=== PATIENT | female | born 1995 | race Caucasian/White ===

== ENCOUNTER → 2017-10-29 10:47 | Outpatient (CLI) | payer MEDICAID, SELFPAY ==
--- NOTE | 2017-10-29 10:50 | RAD_ITS ---
STUDY: X-RAY - RIGHT WRIST REASON FOR EXAM: Female, 22 years old. 3 day history of pain following fall. TECHNIQUE: 3 view(s) of the wrist were obtained. COMPARISON: None. FINDINGS: Normal visualized distal radius and ulna. Normal radiocarpal articulation. Normal distal radioulnar articulation. Normal carpal bones. Normal carpal articulations. Normal carpometacarpal articulation of the thumb. Normal second through fifth carpometacarpal articulations. Normal visualized metacarpal bones. The soft tissue structures are unremarkable. RAD/Wrist min 3 Views IMPRESSION: Normal x-ray examination of the wrist. Electronically Signed: Casper Trinidad MD at 11:15 EDT Tel [phone], Service support ,
== END ==
PROVIDERS: Visit Provider Physician Assistant Surgical
DX: S66.911A Strain of unspecified muscle, fascia and tendon at wrist and hand level, right hand, initial encounter (principal)
CPT/HCPCS: 73110

== ENCOUNTER 2018-04-27 19:03 | Emergency (ER) | payer MEDICAID, SELFPAY ==
[2018-04-27 19:04] VITALS: BP 140/88; PULSE 129; RESP 18; TEMP 36.3; O2SAT 100; BMI 31.9
--- NOTE | 2018-04-27 20:49 | ED.VISSUMM ---
- ER Visit Summary Date of Service: 04/27/18 Chief Complaint: Cough and bilateral earaches History of Present Illness: The patient is a 22 F past medical history of prior PE with . Patient states that on Saturday started having a cough. And she developed left. Patient had a productive cough of green phlegm. No hemoptysis. No chest pain. Physical Examination: Ill-appearing young female. Vital signs are stable. Afebrile. Pulse ox 100% on room air no signs of hypoxia. No distress. She does not look septic or toxic. HEENT exam right TM erythematous and dull. Bulging no perforation canal unremarkable. Left TM erythematous and dull. Posterior pharynx normal. Neck nontender no lymphadenopathy. Lungs clear to auscultation bilaterally. Dry cough. No rales or rhonchi. No wheezing. Equal symmetrical. Heart regular rhythm rate about 110 no murmur. Abdomen soft nontender. Extremities moves all 4. Calves nontender no edema nor cords. Neurologically she is awake alert with no focal motor deficits. Test Results: None Emergency Department Course and Treatment: Patient has bilateral otitis media and probably a bronchitis. Started on Zithromax Z-DONNA in the ER. Treatment Plan: Z-Donna. 250 mg daily for 4 more days. Tylenol Motrin for pain. Follow-up as needed. Disposition: Discharge Impression: Acute bilateral otitis media Bronchitis This note was generated with [employer] dictation software. It may contain incorrect words, spelling, and punctuation that were not noted in review of the chart prior to signing ED Disposition - Plan for ED Patient: Chief Complaint: Cold Sx Referrals: Care Physician,No Primary [Primary Care Provider] -
--- NOTE | 2018-04-27 20:51 | ED.DEP ---
ED Disposition - Plan for ED Patient: Disposition: Home or Assisted Living Chief Complaint: Cold Sx Instructions: ED Otitis Media Serous Adult Prescriptions: Azithromycin [Zithromax] 250 mg PO DAILY #4 tab Referrals: Dez Chawla MD [STAFF PHYSICIAN] - As Needed Additional Instructions: Zithromax 1 pill a day after lunch starting tomorrow. For 4 more days. Tylenol Motrin for pain and fever. Plenty of fluids and rest. Follow-up if not improving.
[2018-04-27] MEDS: Azithromycin 250 MG Tablet 500 MG PO (20:59)
[2018-04-27 21:01] VITALS: BP 136/87; PULSE 104; RESP 20; O2SAT 97
== END 2018-04-27 21:02 | disposition home or self-care (01) ==
PROVIDERS: Emergency Provider Emergency Medicine
DX: H66.93 Otitis media, unspecified, bilateral (principal); J40 Bronchitis, not specified as acute or chronic; Z86.711 Personal history of pulmonary embolism
CPT/HCPCS: 99283

== ENCOUNTER → 2018-06-11 13:07 | Outpatient (CLI) | payer MEDICAID, SELFPAY ==
[2018-06-09 14:14] VITALS: BMI 31.9
--- NOTE | 2018-06-11 13:15 | US_ITS ---
STUDY: ULTRASOUND OF THE FEMALE PELVIS - COMPLETE REASON FOR EXAM: Female, 22 years old. Pelvic pain. LMP: 06/05/2018. TECHNIQUE: Transabdominal and Transvaginal TECHNICAL QUALITY: Adequate. COMPARISON: None. FINDINGS: The uterus is anteverted and is in a midline position. The uterus measures 8.9 x 3.3 cm. There is a Nabothian cyst of the cervix measuring about 1 cm. The endometrium measures 5 mm in thickness, and is . There is no demonstrated endometrial mass. There is no demonstrated myometrial mass. I.U.D. - The patient does have an I.U.D. The IUD is in the mid aspect of the uterus close to the lower uterine segment. The right ovary is visualized. The right ovary measures 2.4 x 2.2 x 1.8 cm. There is a small cyst/prominent follicle in the right ovary measuring about 1.3 cm. There is no visualized right adnexal mass or complex lesion. There is normal arterial and normal venous vascularity. The left ovary is visualized. The left ovary measures 2.4 x 2.2 x 1.8 cm. There is a prominent follicle in the left ovary measuring about 1.1 cm. There is no visualized left adnexal mass or complex lesion. There is normal arterial and normal venous vascularity. There is no fluid in the cul-de-sac. The pre void volume of the bladder was 158 ml. US/Pelvic (Non ) IMPRESSION: 1. IUD somewhat low in position close to the lower uterine segment. 2. No pelvic mass is seen. 3. Nabothian cysts in the cervix. Electronically Signed: Mayito Nathan MD at 13:51 EST Tel , Service support ,
--- NOTE | 2018-06-11 13:15 | US_ITS ---
STUDY: ULTRASOUND OF THE FEMALE PELVIS - COMPLETE REASON FOR EXAM: Female, 22 years old. Pelvic pain. LMP: 06/05/2018. TECHNIQUE: Transabdominal and Transvaginal TECHNICAL QUALITY: Adequate. COMPARISON: None. FINDINGS: The uterus is anteverted and is in a midline position. The uterus measures 8.9 x 3.3 cm. There is a Nabothian cyst of the cervix measuring about 1 cm. The endometrium measures 5 mm in thickness, and is . There is no demonstrated endometrial mass. There is no demonstrated myometrial mass. I.U.D. - The patient does have an I.U.D. The IUD is in the mid aspect of the uterus close to the lower uterine segment. The right ovary is visualized. The right ovary measures 2.4 x 2.2 x 1.8 cm. There is a small cyst/prominent follicle in the right ovary measuring about 1.3 cm. There is no visualized right adnexal mass or complex lesion. There is normal arterial and normal venous vascularity. The left ovary is visualized. The left ovary measures 2.4 x 2.2 x 1.8 cm. There is a prominent follicle in the left ovary measuring about 1.1 cm. There is no visualized left adnexal mass or complex lesion. There is normal arterial and normal venous vascularity. There is no fluid in the cul-de-sac. The pre void volume of the bladder was 158 ml. US/Transvaginal Non- IMPRESSION: 1. IUD somewhat low in position close to the lower uterine segment. 2. No pelvic mass is seen. 3. Nabothian cysts in the cervix. Electronically Signed: Mayito Nathan MD at 13:51 EST Tel , Service support ,
== END ==
PROVIDERS: Referring Provider Obstetrics & Gynecology; Visit Provider Obstetrics & Gynecology
DX: R10.2 Pelvic and perineal pain (principal)
CPT/HCPCS: 76830; 76856; 93976

== ENCOUNTER → 2018-09-30 12:22 | Outpatient (CLI) | payer MEDICAID, SELFPAY ==
[2018-09-30 12:18] VITALS: BMI 31.9
--- NOTE | 2018-09-30 12:24 | RAD_ITS ---
STUDY: X-RAY - RIGHT ANKLE REASON FOR EXAM: Female, 23 years old. Injury. Pain. TECHNIQUE: 3 view(s) of the ankle. COMPARISON: None. FINDINGS: Normal visualized distal tibia and fibula. Normal medial and lateral malleoli. Normal tibiotalar articulation and ankle mortise. Normal visualized talus and calcaneus. The visualized subtalar, talonavicular, calcaneocuboid and tarsal articulations are normal. There is no demonstrated fracture. The soft tissue structures are unremarkable. RAD/Ankle min 3 Views IMPRESSION: Normal x-ray examination of the ankle. Electronically Signed: Jonny Chirinos MD at 13:36 EDT , Service support ,
== END ==
PROVIDERS: Referring Provider Physician Assistant Medical; Visit Provider Physician Assistant Medical
DX: R52 Pain, unspecified (principal)
CPT/HCPCS: 73610

== ENCOUNTER 2018-12-17 20:17 | Emergency (ER) | payer MEDICAID, SELFPAY ==
[2018-09-30 12:18] VITALS: BMI 31.9
[2018-12-17 20:18] VITALS: BP 135/72; PULSE 124; RESP 18; TEMP 36.1; O2SAT 97; BMI 44.7
--- NOTE | 2018-12-17 22:41 | ED.VIS.HA ---
History of Present Illness Chief Complaint: Headache Informant: Patient Onset: Yesterday Context: Gradual Timing: Continuous Quality: Similar Prior Headaches - But worse, Throbbing Location: Central frontal, radiating to occipital area Current Severity: Moderate Maximum Severity: Moderate Worsened by: Light and sound Relieved by: Nothing Associated Symptoms: Nausea, Blurred Vision, Photophobia, - - No recent injuries.. Negative for: Fever, Vomiting, Sore Throat, Sinus Pressure, Numbness, Tingling, Preceding Aura, Visual Loss Narrative: Patient states she has felt a mild cold lately, with some rhinorrhea, congestion, minor nonproductive cough. Feels cold chills but no definite fevers. No shortness of breath. No vomiting. No focal neurologic symptoms. No neck stiffness. No confusion. Has a history of headaches like these, as far as the location in her head. No thunderclap. No history of cerebral aneurysms in the family. Past Medical History - Allergies and Home Meds Allergies/Adverse Reactions: Allergies metoclopramide [From Reglan] Adverse Reaction (Mild, Verified 09/30/18 12:13) RESTLESS, ITCHING, FLUSHING restlessness, itching, flushing Penicillins Adverse Reaction (Verified 09/30/18 12:13) Vomiting bratwurst Adverse Reaction (Uncoded 09/30/18 12:13) Vomiting Primary Care Physician: Care Physician,No Primary [Primary Care Provider] - Past Medical History: None Lives: With Family Smoking Status: Never smoker Drugs: None Review of Systems General: Reports: Chills. Denies: Fever Eyes: Reports: Blurred Vision - bilaterally. Denies: Diplopia ENT: Reports: Rhinorrhea. Denies: Bilateral ear pain, Sore throat Cardiovascular: Denies: Chest pain, Palpitations Respiratory: Reports: Cough. Denies: Dyspnea, Sputum, Dyspnea on exertion Gastrointestinal: Reports: Nausea. Denies: Abdominal pain, Vomiting Musculoskeletal: Denies: Neck pain, Back pain Skin: Denies: Rash, Wounds Neurological: Reports: Headache. Denies: Weakness, Numbness Physical Exam Vital Signs/Narrative: Vital Signs Temp Pulse Resp BP Pulse Ox 12/17/18 20:18 96.9 F L 124 H 18 135/72 H 97 Inital Vital Signs reviewed: Yes General: Well nourished, Well developed, - - Well-appearing, no acute distress. Mildly photophobic. Head: NC, AT Eyes: Perrl, EOMI ENT: Moist mucous membranes, No rhinorrhea. Negative for: Nasal congestion - No purulent discharge or nasal turbinate edema., Sinus tenderness Neck: Supple, No Lymphadenopathy, Nontender, No Meningismus. Negative for: No JVD Cardiovascular: Regular rate, Regular rhythm, No murmurs. 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 As such, she was treated with IV fluids, Phenergan since she claimed akathisia to Reglan, and Toradol. On reevaluation her headache is almost completely gone she feels much better, I think she is stable for discharge. I do not think there are any indications for antibiotics for sinusitis. She likely has a viral URI, recommend outpatient follow-up as needed. She is comfortable with this plan. ED Disposition - Plan for ED Patient: Disposition: Home or Assisted Living Diagnosis: Migraine headache, Viral upper respiratory infection Instructions: ED, Migraine (Classical) Referrals: Keyla Santos MD [STAFF PHYSICIAN] - 1 Week if not improving
[2018-12-17] MEDS: Ketorolac 30 MG/ML Syringe IV (23:05)
[2018-12-17] MEDS: proMETHazine 25 MG/ML Syringe 12.5 MG IV (23:05)
[2018-12-18 00:19] VITALS: PULSE 72
== END 2018-12-18 00:20 | disposition home or self-care (01) ==
PROVIDERS: Emergency Provider Emergency Medicine
DX: G43.909 Migraine, unspecified, not intractable, without status migrainosus (principal); J06.9 Acute upper respiratory infection, unspecified; Z88.8 Allergy status to other drugs, medicaments and biological substances; Z88.0 Allergy status to penicillin
CPT/HCPCS: 96361; 96374; 96375; 99283; J7030; A4216

== ENCOUNTER → 2022-05-19 | Outpatient (CLI) | payer MEDICAID, SELFPAY ==
[2022-05-19 15:13] LABS: Bacteria 0 SEEN /hpf (None Seen); Mucous, Urine 0 SEEN /hpf (<or=2+); Red Blood Cells-Urine 0 SEEN /hpf (0-5)
[2022-05-19 15:23] LABS: Color, Urine Yellow (Yellow); Glucose, Dipstick Normal (Normal); Ketone-Dipstick Negative (Negative); Leukocyte Esterase-Dipstick 500 /ul (Negative); Nitrite-Dipstick Negative (Negative); Occult Blood-Urine Negative /ul (Negative); Protein-Dipstick Negative (Negative); Urine Bilirubin Dipstick Negative (Negative); Urine Clarity Sl. Cloudy (Clear); Urine Urobilinogen Normal (Normal)
[2022-05-19 15:34] LABS: Squamous Epithelial Cells - UA 5-10 SEEN /hpf (5-10); White Blood Cells 10-25 SEEN /hpf (0-5)
== END | disposition home or self-care (01) ==
PROVIDERS: Visit Provider Physician Assistant Surgical
DX: E78.5 Hyperlipidemia, unspecified (principal); N39.0 Urinary tract infection, site not specified
CPT/HCPCS: 81001; 87086; 87088

== ENCOUNTER 2022-05-20 20:05 | Emergency (ER) | payer MEDICAID, SELFPAY ==
[2022-05-20 20:05] VITALS: BP 154/100; PULSE 113; RESP 18; TEMP 36.1; O2SAT 100; BMI 34.2
--- NOTE | 2022-05-20 20:19 | CT_ITS ---
EXAM: CT ABDOMEN AND PELVIS WITHOUT INTRAVENOUS CONTRAST CLINICAL INDICATION: Pain TECHNIQUE: Helically acquired images were obtained of the abdomen and pelvis without intravenous contrast. CTDIvol = ( 19.39 ) mGy, DLP = ( 1056.13 ) mGycm This CT exam was performed using one or more of the following dose reduction techniques: automated exposure control, adjustment of the mA and/or kV according to patient size, and/or use of iterative reconstruction technique. This report was created using [employer] report generation technology. COMPARISON: None. FINDINGS: LOWER THORAX: Unremarkable. Lung bases are clear. No cardiomegaly. No significant pericardial effusion. ABDOMEN: LIVER: Unremarkable. Homogeneous. GALLBLADDER AND BILE DUCTS: Contracted gallbladder. No calcified gallstones. No gallbladder distention or wall edema. No intra- or extrahepatic biliary ductal dilation. PANCREAS: Unremarkable. No focal cystic mass. SPLEEN: Unremarkable. Normal size without focal cystic or solid mass. ADRENALS: Unremarkable. No nodules. KIDNEYS AND URETERS: Unremarkable. Normal renal size and position. No hydronephrosis. STOMACH AND BOWEL: Unremarkable. No stomach or bowel distention. No focal inflammatory change. PELVIS: APPENDIX: No evidence of acute appendicitis. BLADDER: Unremarkable. REPRODUCTIVE: IUD in place. No adnexal masses. ABDOMEN and PELVIS: INTRAPERITONEAL SPACE: Unremarkable. No ascites or other fluid collection. No free air. BONES/JOINTS: Unremarkable. No suspicious lytic or blastic abnormality. SOFT TISSUES: Unremarkable. No discrete abdominal or pelvic wall hernia. VASCULATURE: Unremarkable. Abdominal aorta is non-dilated. LYMPH NODES: Unremarkable. No enlarged lymph nodes. CT/Abdomen/Pelvis without Cont IMPRESSION: No acute or inflammatory disease or bowel obstruction. Electronically Signed: Yohannes Dubon MD at 21:38 EST ,
--- NOTE | 2022-05-20 20:19 | EX.ED.DYSGE1 ---
HPI History of Present Illness Chief Complaint: Complaint Detail of Chief Complaint: Abdominal pain Informant: patient Narrative Narrative: Patient presents with abdominal pain. Patient states that she is currently being treated for urinary tract infection and is on her second round of antibiotics. Patient symptoms initially started 2-1/2 weeks ago. She complains of urgency and frequency. Patient states that now she has nausea and pain in her back as well. She had a fever about a week ago at 99 and subjectively has felt warm at times. Patient states she gets a UTI about once a year. No history of kidney stones. She has had nausea but no vomiting. She denies blood in her stool or black tarry stool. [facility] Medical History (Updated 05/20/22 @ 21:[address] Kimberlee Smith, ) Acute pharyngitis, unspecified Pulmonary embolism Right ankle sprain URI (upper respiratory infection) UTI (urinary tract infection) Home Medications copper 380 square mm intrauterine device (ParaGard T 380A) 1 device intrauterine ONCE 06/09/18 [History Last Taken Unknown] ibuprofen 200 mg capsule 200 mg PO Q6H 09/11/18 [History Last Taken Unknown] meloxicam 15 mg tablet PO 24 days #24 tabs 09/30/18 [History Last Taken Unknown] cefdinir 300 mg capsule 300 mg PO BID #14 caps 12/09/21 [Rx Last Taken Unknown] phenazopyridine 100 mg tablet (Pyridium) 100 mg PO TID PRN pain 6 doses #7 tabs 05/19/22 [Rx Last Taken Unknown] sulfamethoxazole 800 mg-trimethoprim 160 mg tablet (Bactrim DS) 1 tab PO Q12H 7 days #14 tabs 05/19/22 [Rx Last Taken Unknown] cephalexin 500 mg capsule 500 mg PO Q6 #40 CAPSULES 05/20/22 [Rx Last Taken Unknown] ondansetron 4 mg disintegrating tablet 4 mg PO Q8H PRN PRN Nausea #10 tabs 05/20/22 [Rx Last Taken Unknown] Allergy/AdvReac Type Severity Reaction Status Date / Time metoclopramide [From Reglan] AdvReac Mild RESTLESS, Verified 05/20/22 20:07 ITCHING, FLUSHING Penicillins AdvReac Vomiting Verified 05/20/22 20:07 bratwurst AdvReac Vomiting Uncoded 05/20/22 20:07 Family History Father Diabetes Hypertension Other Arthritis Fibromyalgia Surgical History History of 2 sections Social History Smoking Status: Never smoker alcohol intake: never substance use type: does not use caffeine: Yes what type of physical activity do you participate in: none seatbelt use: always do you feel safe at home: Yes additional social history: [place] Patient is stay at home mom ROS ROS ED Review of Systems ROS Unobtainable: other Constitutional Constitutional ED: Reports fever(s) and lethargy; Denies chills, sweats or weight loss Eyes Eyes: Denies blurry vision, change in vision or diplopia ENT ENT ED: Denies rhinorrhea or sore throat Cardiovascular Cardiovascular: Denies chest pain, orthopnea or racing heartbeat Respiratory/Chest Respiratory/Chest: Denies cough, dyspnea, dyspnea on exertion, orthopnea or sputum Gastrointestinal Gastrointestinal: Reports abdominal pain and nausea; Denies diarrhea or vomiting Genitourinary Genitourinary ED: Reports urinary frequency; Denies dysuria or hematuria Musculoskeletal Musculoskeletal: Denies arthralgias, back pain, myalgias or neck pain Integumentary Denies abscess, Abrasions or rash Neurologic Neurologic: Denies headache(s) or weakness Psychiatric Psychiatric: Denies anxiety, depression or suicidal thoughts Endocrine Endocrinology: Denies polydipsia, polyphagia or polyuria Hematologic/Lymphatic Hematologic/Lymphatic: Denies easy bleeding, easy bruising or lymphadenopathy Allergic/Immunologic Allergic/Immunologic ED: Denies mouth swelling, tongue swelling or urticaria EXAM Physical Exam Const Vital Signs: 05/20/22 20:05 Temperature 97 F L Temperature Source Temporal Pulse Rate 113 H Respiratory Rate 18 Blood Pressure 154/100 H Blood Pressure Mean 118 Pulse Ox 100 Oxygen Delivery Method Room Air Positive well nourished and well developed General Appearance ED: well developed and NAD HEENT Reports TM's clear and moist mucous membranes normocephalic and atraumatic; Negative for trauma or tenderness Tympanic Membrane ED: Yes TM's clear Eyes PERRL and EOMs intact bilaterally General Eye ED: Negative for pale conjunctiva or scleral icterus Neck no lymphadenopathy, supple and no JVD General: Negative for tenderness Chest Wall inspection of chest normal and palpation of chest normal Chest: Negative for tenderness Resp normal respiratory effort and clear to auscultation bilaterally Effort and Inspection: Negative for respiratory distress or pain with movement Auscultation: Negative for rhonchi, wheezes or diminished lung sounds Cardio regular rate, regular rhythm, S1 normal heart sound, S2 normal heart sound and no murmurs Peripheral Pulses: pulses 2+ throughout GI normal to inspection, nondistended, normoactive bowel sounds, soft to palpation, non-distended and no masses GI Narrative: Tenderness to palpation over right lower quadrant and suprapubic region. There is no rebound, rigidity, or. Signs. Back/Spine no thoracic nor lumbar tenderness Back/Spine Narrative: Patient does have CVA tenderness on the right. Extremity normal to inspection General Extremety ED: Negative for edema General Extremity: Negative for edema Neuro oriented x3, CN's II-XII intact bilaterally, no sensory deficits noted and gait normal Sensorium / Orientation: awake, alert, oriented to person, oriented to place and oriented to time Motor Exam: strength 5/5 throughout and strength abnormal Psych mental status grossly normal Skin no rashes or lesions noted and no wounds MDM MDM MDM Narrative Medical decision making narrative: Established on arrival. Patient did not anything for pain. CBC with differential obtained was normal. Chemistries were unremarkable. hCG was negative. Urinalysis still concerning for infection but is positive for nitrites and 500 leukocyte Estrace as well as +1 bacteria and 10-25 WBCs. I did send off a urine culture. CT scan of the abdomen pelvis without contrast was evaluated and interpreted by myself as no acute acute disease process without evidence of kidney stone or inflammatory process such as appendicitis. There is no evidence of bowel obstruction. Radiology was in agreement. Patient then told me that she was seen 2 days ago at urgent care and had a urine culture sent I was able to see in the computer that her urine culture was sent but no results back at this time. I did give patient Rocephin 1 g IV. I will start patient on Keflex and she is currently taking Pyridium. Patient will be given a prescription for Zofran for nausea. Patient to use ibuprofen or Tylenol for discomfort. Patient advised to return if fever, vomiting, worsening pain, or condition should worsen anyway. She will be given a referral to primary care physician for follow-up. Lab Data Attestation: I reviewed the patient's lab results. Labs: Laboratory Results - last 24 hr 05/20/22 05/20/22 05/20/22 20:25 20:25 20:25 WBC 10.2 RBC 4.58 Hgb 13.0 Hct 39.3 MCV 85.8 MCH 28.4 MCHC 33.1 RDW Std Deviation 41.0 RDW Coeff of Fco 13.2 Plt Count 379 MPV 10.2 Immature Gran % (Auto) 0.300 Neut % (Auto) 63.3 Lymph % (Auto) 29.1 [place] % (Auto) 4.5 Eos % (Auto) 2.2 Baso % (Auto) 0.6 Absolute Neuts (auto) 6.5 Absolute Lymphs (auto) 2.98 Nucleated RBC % 0 Sodium 140 Potassium 3.8 Chloride 106 Carbon Dioxide 24.0 Anion Gap 10 BUN 15 Creatinine 0.88 Estim Creat Clear Calc 96.87 Est GFR (MDRD) Af Amer 98 Est GFR (MDRD) Non-Af 81 BUN/Creatinine Ratio 17.0 Glucose 120 H Calcium 8.7 Serum , Qual NEGATIVE Urine Color Urine Clarity Urine pH Ur Specific [place] Urine Protein Urine Glucose (UA) Urine Ketones Urine Occult Blood Urine Nitrite Urine Bilirubin Urine Urobilinogen Ur Leukocyte Esterase Urine RBC Urine WBC Ur Squamous Epith Cells Urine Bacteria Urine Mucus 05/20/22 20:35 WBC RBC Hgb Hct MCV MCH MCHC RDW Std Deviation RDW Coeff of Fco Plt Count MPV Immature Gran % (Auto) Neut % (Auto) Lymph % (Auto) [place] % (Auto) Eos % (Auto) Baso % (Auto) Absolute Neuts (auto) Absolute Lymphs (auto) Nucleated RBC % Sodium Potassium Chloride Carbon Dioxide Anion Gap BUN Creatinine Estim Creat Clear Calc Est GFR (MDRD) Af Amer Est GFR (MDRD) Non-Af BUN/Creatinine Ratio Glucose Calcium Serum , Qual Urine Color [place] Urine Clarity Sl. Cloudy Urine pH 6.0 Ur Specific [place] 1.025 Urine Protein 15 H Urine Glucose (UA) Normal Urine Ketones 5 H Urine Occult Blood Negative Urine Nitrite Positive H Urine Bilirubin 3 H Urine Urobilinogen 4 H Ur Leukocyte Esterase 500 H Urine RBC 0 SEEN Urine WBC 10-25 SEEN Ur Squamous Epith Cells 5-10 SEEN Urine Bacteria 1+ Urine Mucus 0 SEEN Radiography Diagnostic Testing: Clinical Impression(s) from Imaging Studies Abdomen/Pelvis CT 05/20/22 20:19 IMPRESSION: No acute or inflammatory disease or bowel obstruction. Electronically Signed: Yohannes Dubon MD at 21:38 EST , Discharge Plan Triage Chief Complaint: Complaint ED Provider: Kimberlee Smith Dx/Rx/DC Orders Clinical Impression: UTI (urinary tract infection), Abdominal pain Instructions: Abdominal Pain, ED Cystitis Female Adult Prescriptions: New cephalexin [cephalexin] 500 MG capsule 500 mg PO Q6 Qty: 40 0RF ondansetron [ondansetron] 4 MG tablet 4 mg PO Q8H PRN PRN (Reason: Nausea) Qty: 10 0RF No Action ParaGard T 380A 380 square mm intrauterine device 1 device Intrauterine ONCE ibuprofen 200 mg capsule 200 mg PO Q6H meloxicam 15 mg tablet PO 24 Days Qty: 24 cefdinir 300 mg capsule 300 mg PO BID Qty: 14 0RF sulfamethoxazole-trimethoprim [Bactrim DS] 800-160 mg tablet 1 tab PO Q12H 7 Days Qty: 14 0RF phenazopyridine [Pyridium] 100 mg tablet 100 mg PO TID PRN (Reason: pain) Qty: 7 0RF Rx Instructions: administer with a full glass of water after each meal Primary Care Provider: Care Physician,No Primary Referrals: Ambar Floyd DO [Med Staff - Active Staff] - 3-5 Days Care Physician,No Primary [Primary Care Provider] - Disposition Disposition: Home, Self Care
[2022-05-20] MEDS: 0.9% Normal Saline 1,000 ML 125 ML IV (20:30)
[2022-05-20 20:32] LABS: Absolute Lymphocyte Count 2.98 X10^3/uL (0.83-4.51); Absolute Neutrophil Count 6.5 X10^3/uL (2.0-7.7); Basophil# 0.06 X10^3/uL; Basophil% 0.6 % (0-1); Eosinophil# 0.23 X10^3/uL; Eosinophils% 2.2 % (0-5); Hematocrit 39.3 % (37-47); Lymphocyte # 2.98 X10^3/ul (0.83-4.51); Lymphocyte % 29.1 % (19-41); Mean Corp Hgb Conc 33.1 g/dL (32-36); Mean Corpuscular Hgb 28.4 pg (27.0-32.0); Mean Corpuscular Volume 85.8 fL (81-99); Mean Platelet Vol. 10.2 fl (6.2-12.0); Monocyte# 0.46 X10^3/uL; Monocyte% 4.5 % (0-10); NRBC Flagged by Analyzer 0 % (0-5); Neutrophil # 6.48 X10^3/uL (2.7-7.7); Neutrophil % 63.3 % (47-70); Platelet Count 379 K/mm3 (150-450); RBC Distribution Width CV 13.2 % (11.6-14.6); Red Blood Count 4.58 M/mm3 (4.2-5.4); White Blood Count 10.2 K/mm3 (4.4-11.0)
[2022-05-20 20:41] LABS: Mucous, Urine 0 SEEN /hpf (<or=2+); Red Blood Cells-Urine 0 SEEN /hpf (0-5)
[2022-05-20 20:45] LABS: Color, Urine Amber (Yellow); Glucose, Dipstick Normal (Normal); Ketone-Dipstick 5 mg/dl (Negative); Leukocyte Esterase-Dipstick 500 /ul (Negative); Nitrite-Dipstick Positive (Negative); Occult Blood-Urine Negative /ul (Negative); Protein-Dipstick 15 mg/dl (Negative); Specific Gravity, Urine 1.025 (1.002-1.030); Urine Clarity Sl. Cloudy (Clear); Urine Urobilinogen 4 mg/dl (Normal)
[2022-05-20 20:46] LABS: Urine Bilirubin Dipstick 3 mg/dL (Negative)
[2022-05-20 20:46] LABS: Anion Gap 10 (5-15); BUN 15 mg/dL (7-18); Calcium,Total 8.7 mg/dL (8.5-10.1); Chloride 106 mmol/L (98-107); Creatinine, Serum 0.88 mg/dL (0.55-1.02); EST Glomerular Filtration Rate 81 mL/min (>60); Est Glom Filt Rate - Afr Amer 98 mL/min (>60); Estimated Creatinine Clearance 96.87 ml/min; Glucose 120 mg/dL (74-106); Potassium 3.8 mmol/L (3.5-5.1); Sodium Level 140 mmol/L (136-145)
[2022-05-20 20:47] LABS: Internal QC Validated? YES +Cl - CLEAR BKGD; Pregnancy, Serum, hCG Quali. NEGATIVE Negative
[2022-05-20 20:50] LABS: Squamous Epithelial Cells - UA 5-10 SEEN /hpf (5-10)
[2022-05-20 20:51] LABS: Bacteria 1+ /hpf (None Seen); White Blood Cells 10-25 SEEN /hpf (0-5)
[2022-05-20] MEDS: Phenazopyridine 95 MG Tablet 190 MG PO (21:33)
[2022-05-20] MEDS: Ceftriaxone 1 GM/50 ML BAG IV (21:33)
[2022-05-20 21:43] VITALS: PULSE 68; RESP 16; O2SAT 99
== END 2022-05-20 22:10 | disposition home or self-care (01) ==
PROVIDERS: Emergency Provider Emergency Medicine; Visit Provider Emergency Medicine
DX: N39.0 Urinary tract infection, site not specified (principal); R11.0 Nausea; R10.9 Unspecified abdominal pain; R35.0 Frequency of micturition
CPT/HCPCS: 74176; 80048; 81001; 84703; 85025; 87086; 87088; 96361; 96365; 99283; J7030; A4216

== ENCOUNTER → 2024-10-19 | Outpatient (CLI) | payer MEDICAID, SELFPAY ==
[2024-10-19 12:26] LABS: Absolute Lymphocyte Count 2.34 X10^3/uL (0.83-4.51); Absolute Neutrophil Count 6.5 X10^3/uL (2.0-7.7); Basophil# 0.06 X10^3/uL; Basophil% 0.6 % (0-1); Eosinophil# 0.34 X10^3/uL; Eosinophils% 3.5 % (0-5); Hematocrit 40.4 % (37-47); Hemoglobin 12.7 g/dL (12.0-15.0); Lymphocyte # 2.34 X10^3/ul (0.83-4.51); Lymphocyte % 23.9 % (19-41); Mean Corp Hgb Conc 31.4 g/dL (32-36); Mean Corpuscular Hgb 26.3 pg (27.0-32.0); Mean Corpuscular Volume 83.8 fL (81-99); Mean Platelet Vol. 10.7 fl (6.2-12.0); Monocyte# 0.52 X10^3/uL; Monocyte% 5.3 % (0-10); NRBC Flagged by Analyzer 0 % (0-5); Neutrophil # 6.49 X10^3/uL (2.7-7.7); Neutrophil % 66.4 % (47-70); Platelet Count 454 K/mm3 (150-450); RBC Distribution Width CV 13.7 % (11.6-14.6); RBC Distribution Width SD 42.5 fl (35.1-43.9); Red Blood Count 4.82 M/mm3 (4.2-5.4); White Blood Count 9.8 K/mm3 (4.4-11.0)
[2024-10-19 12:59] LABS: Hemoglobin A1c 5.6 % (<=5.6)
[2024-10-20 15:38] LABS: ALB/GLOB Ratio 1.2 RATIO (0.9-2.4); AST(SGOT) 18 U/L (<=31); Alanine Aminotransfer ALT/SGPT 25 U/L (<=34); Alkaline Phosphatase 82 U/L (35-104); Anion Gap 11 (5-15); BUN 11 mg/dL (4-19); BUN/Creat Ratio 14.9 RATIO (10-20); Carbon Dioxide 24.4 mmol/L (21.0-32.0); Chloride 104 mmol/L (98-108); Cholesterol 176 mg/dL (<=200); Creatinine, Serum 0.74 mg/dL (0.70-1.20); EST Glomerular Filtration Rate 112 (>60); Globulin 3.2 g/dL (2.2-4.2); Glucose 92 mg/dL (70-99); High Density Lipoprotein 36 mg/dL; Low Density Lipoprotein Calc. 123 mg/dL; Potassium 4.7 mmol/L (3.3-5.1); Protein, Total 7.2 g/dL (5.9-8.4); Sodium Level 139 mmol/L (133-145); Total Bilirubin 0.31 mg/dL (0.00-1.30); Triglycerides 85 mg/dL; Very Low Density Lipoprotein 17 mg/dL (5-40); Vitamin B12 271 pg/mL (180-914)
== END | disposition home or self-care (01) ==
LOC: BIMLAB 09:24
PROVIDERS: PCP Internal Medicine; Referring Provider Internal Medicine; Visit Provider Internal Medicine
DX: Z00.00 Encounter for general adult medical examination without abnormal findings (principal); F41.9 Anxiety disorder, unspecified; F32.A Depression, unspecified; E66.9 Obesity, unspecified
CPT/HCPCS: 36415; 80053; 80061; 82607; 83036; 84439; 84443; 85025

== ENCOUNTER → 2024-10-23 | Outpatient (CLI) | payer MEDICAID, SELFPAY | END | disposition home or self-care (01) | LOC: LABSPEC 10:31 | PROVIDERS: PCP Internal Medicine; Referring Provider Physician Assistant Surgical; Visit Provider Physician Assistant Surgical | DX: R82.90 Unspecified abnormal findings in urine (principal) | CPT/HCPCS: 87086; 87088 ==

== ENCOUNTER → 2025-02-26 | Outpatient (CLI) | payer MEDICAID, SELFPAY ==
--- OUTSIDE RECORDS SUMMARY | 2025-02-26 16:09 | XMS RPT_ITS | CCD ---
Author Organization [facility] Care Team Providers Care Powder Carrier Name Role Phone Care Physician, No Primary Primary Care Provider Unavailable Care Physician, No Primary Referring Provider Un available MANUEL Goodman Attending Provider Dr. Oziel Whittington Attending Provider Roof ASSEMBLY LINE BRAZER, ASSEMBLY LINE BRAZER-Rain Ballard Attending Provider MANUEL Santiago Attending Provider [phone] REFERRED, SELF Referring Unavailable JEROMY LIZARRAGA Primary Care Unavailable HEIDI LONG Attending Unavailable Care Physician, No Primary Primary Care Provider Unavailable Care Physician, No Primary Referring Provider Un available Nathan Santiago Attending Provider [phone] Lucas SHERWOOD, Dr. Lombardo Attending Provider Lucas SHERWOOD, Dr. Lombardo Primary Care Provider Lucas SHERWOOD, Dr. Lombardo Referring Provider Nathan Santiago Referring Provider Care Physician, No Primary Primary Care Physicia n Unavailable Care Physician, No Primary Referring Provider Un available Lucas SHERWOOD, Dr. Lombardo Attending Physician Dr. Grupo Zavala MD Primary Care Physician Nathan Santiago Attending Physician Care Physician, No Primary Referring Unava ilable Care Physician, No Primary Primary Care Unava ilable Grupo Zavala Attending Unavailable Care Physician, No Primary Primary Care Unava ilable Care Physician, No Primary Referring Unava ilable Nathan Santiago Attending Unavailable Care Physician, No Primary Primary Care Unava ilable Jorge Goodman Attending Unavailable Care Physician, No Primary Referring Unava ilable Care Physician, No Primary Primary Care Unava ilable Care Physician, No Primary Referring Unava ilable Nathan Santiago Attending Unavailable Mckayla ASSEMBLY LINE BRAZER, [place] Attending Unavailable Oleghe, Efewongbe Referring Unavailable Oleghe, Efewongbe Primary Care Unavailable Oleghe, Efewongbe Attending Unavailable Oleghe, Efewongbe Referring Unavailable Oleghe, Efewongbe Primary Care Unavailable Oleghe, Efewongbe Primary Care Unavailable Oleghe, Efewongbe Referring Unavailable Nathan Santiago Attending Unavailable Oleghe, Efewongbe Primary Care Unavailable Oleghe, Efewongbe Attending Unavailable Oleghe, Efewongbe Referring Unavailable Oleghe, Efewongbe Primary Care Unavailable Nathan Santiago Attending Unavailable Nathan Santiago Referring Unavailable Allergies Allergy Classification Reported Allergen(s) Allergy Type Date of Onset Reaction(s) Facility (7 sources) Metoclopramide Drug Allergy 05-20-19 RESTLESS, ITCHING, FLUSHING [facility] Comment on above: restlessness, itchin g, flushing (7 sources) Penicillins Propensity to adverse reactions 05-20-19 Vomiting [facility] (2 sources) bratwurst Propensity to adverse reactions 05-20-19 Vomiting [facility] (1 source) Amoxicillin; Translations: [AMOXICILLIN] Drug Allergy [facility] (6 sources) Food Allergies: Uncoded; Translations: [Food Allergies: Uncoded] Propensity to adverse reactions 10-20-19 [facility] Comment on above: bratwurst (1 source) Metoclopramide Drug Allergy 01-26-20 [facility] (1 source) Penicillins Drug allergy (disorder) 01-26-20 [facility] Medications Current Medications Medication Drug Class(es) Dates Sig (Normalized) Sig (Original) traZODone hydrochloride 50 mg oral tablet (1 source) Serotonin Reuptake Inhibitor Start: 01-25-2025 take 1 tablet by mouth at bedtime as needed Trazodone 50 mg tablet Active 50 mg PO AT BEDTIME as needed for insomnia January 25, 2025 12:00am Complies with drug therapy 24 hr venlafaxine 75 mg extended release oral capsule (3 sources) Serotonin and Norepinephrine Reuptake Inhibitor Start: 01-25-2025 take 1 capsule by mouth once daily Venlafaxine 75 mg capsule,extended release 24hr Active 75 mg PO daily 90 90 1 January 25, 2025 9:13am Complies with drug therapy Start: 11-16-2024 End: 01-25-2025 take 1 capsule by mouth once daily Venlafaxine 37.5 mg capsule,extended release 24hr Discontinued 37.5 mg PO daily 30 0 January 18, 2025 6:03pm January 25, 2025 9:16am Completed/Discontinued Medications Medication Drug Class(es) Dates Sig (Normalized) Sig (Original) acetaminophen 325 mg / oxyCODONE hydrochloride 5 mg oral tablet (14 sources) Opioid Agonist Start: 10-12-2016 End: 10-29-2017 Oxycodone-Acetamino phen 1 TABLET tablet Discontinued 1 {tbl} PO EVERY 4 HOURS NEEDED as needed for Pain 30 October 15, 2016 12:00am October 29, 2017 10:29am Start: 10-12-2016 End: 10-29-2017 take 1 tablet by mouth every four hours as needed Oxycodone-Acetaminophen Discontinued 1 TABLET PO EVERY 4 HOURS NEEDED October 14, 2016 11:00pm October 29, 2017 9:29am azithromycin 250 mg oral tablet (20 sources) Macrolide Antimicrobial Start: 07-21-2022 End: 04-28-2024 Azithromycin 250 mg tablet Discontinued 250 mg PO daily 12 July 21, 2022 12:00am April 28, 2024 10:11am 2 tablets today, then 1 tablet daily on days 2 through 11 Start: 04-17-2021 End: 04-02-2022 take 2-5 tablets by mouth once daily Azithromycin 250 mg tablet Discontinued 0 PO .COMPLEX 6 April 17, 2021 1:00am April 02, 2022 11:55am take 500 mg today (day 1), then 250 mg for 4 days (days 2-5) PO Start: 09-11-2018 End: 09-30-2018 Azithromycin 250 mg tablet Discontinued 250 mg PO daily 6 0 September 11, 2018 12:00am September 30, 2018 12:16pm 2 tablets today, then 1 tablet daily on days 2 through 5 Start: 04-27-2018 End: 06-09-2018 take 1 tablet by mouth once daily Azithromycin 250 MG tablet Discontinued 250 mg PO DAILY 4 April 27, 2018 1:00am June 09, 2018 2:52pm cefdinir 300 mg oral capsule (12 sources) Cephalosporin Antibacterial Start: 12-09-2021 End: 05-08-2024 take 1 capsule by mouth twice daily Cefdinir 300 mg capsule Discontinued 300 mg PO TWICE A DAY 20 April 28, 2024 1:00am May 07, 2024 1:00am May 08, 2024 1:11am cephalexin 500 mg oral capsule (7 sources) Cephalosporin Antibacterial Start: 05-20-2022 End: 04-28-2024 take 1 capsule by mouth every six hours Cephalexin 500 MG capsule Discontinued 500 mg PO EVERY 6 HOURS 40 May 20, 2022 1:00am April 28, 2024 10:11am copper 313 mg drug implant (7 sources) Copper-containing Intrauterine Device Start: 06-09-2018 End: 04-28-2024 Copper (Paragard T 380a) 380 square mm intrauterine device Discontinued 1 NMA INTRA-UTER ONCE June 09, 2018 1:00am April 28, 2024 10:11am Start: 06-09-2018 Copper (Paraga rd T 380a) 380 square mm intrauterine device Active 1 DEVICE INTRA-UTER ONCE June 09, 2018 12:00am dextromethorphan hydrobromide 15 mg / guaiFENesin 400 mg / pseudoephedrine hydrochloride 60 mg oral tablet (5 sources) alpha-Adrenergic Agonist, Uncompetitive W-uugdeo-N-aspartate Receptor Antagonist, Sigma-1 Agonist Start: 04-28-2024 End: 08-14-2024 take 4 tablets by mouth every twenty-four hours as needed Ivvoggcqgsriecc-Rr-Zuebklxhviz (Capmist Dm) 60-15-400 mg tablet Discontinued 1 {tbl} PO EVERY 4-6 HOURS as needed for cold symptoms April 28, 2024 1:00am August 14, 2024 11:09am do not exceed 4 doses per 24 hrs docusate sodium 50 mg / sennosides, half-way 8.6 mg oral tablet (7 sources) Start: 10-15-2016 End: 10-29-2017 Sennosides-Docusate Sodium 1 TABLET tablet Discontinued 1 - 2 {tbl} PO DAILY as needed for Constipation 30 0 October 15, 2016 12:00am October 29, 2017 10:29am Start: 10-15-2016 End: 10-29-2017 take 1 tablet by mouth once daily Sennosides-Docusate Sodium Discontinued 1 - 2 TABLET PO DAILY 30 October 14, 2016 11:00pm October 29, 2017 9:29am 0.4 ml enoxaparin sodium 100 mg/ml prefilled syringe (20 sources) Low Molecular Weight Heparin Start: 10-15-2016 End: 10-29-2017 inject 40 mg by subcutaneous injection once daily Enoxaparin 40 MG/0.4 ML syringe Discontinued 40 mg SQ DAILY 1 October 15, 2016 12:00am October 29, 2017 10:29am Start: 10-12-2016 End: 10-29-2017 inject 100 mg by subcutaneous injection twice daily Enoxaparin 100 MG/ML syringe Discontinued 100 mg SQ TWICE A DAY 60 October 12, 2016 12:00am October 29, 2017 10:29am Start: 10-12-2016 End: 10-29-2017 inject 100 mg by subcutaneous injection twice daily Enoxaparin Discontinued 100 MG SQ TWICE A DAY 60 October 11, 2016 11:00pm October 29, 2017 9:29am Start: 07-19-2016 End: 09-19-2016 inject 100 mg by subcutaneous injection twice daily Enoxaparin (Lovenox) 100 MG/ML syringe Discontinued 100 mg SQ TWICE A DAY 10 0 July 19, 2016 12:00am September 19, 2016 12:14am escitalopram 10 mg oral tablet (5 sources) Serotonin Reuptake Inhibitor Start: 10-19-2024 End: 11-16-2024 take 0.5 tablet by mouth once daily, then take 1 tablet by mouth once daily Escitalopram Oxalate (Lexapro) 10 mg tablet Discontinued 10 mg PO daily 30 3 October 19, 2024 12:00am November 16, 2024 11:43am Take 1/2 tablet x 2 weeks then increase to 1 tablet daily Heparin Injection (7 sources) Start: 10-03-2016 End: 10-15-2016 Heparin Injection Discontinued 10581 U SQ TWICE A DAY October 03, 2016 12:00am October 15, 2016 8:39am hx pe this Start: 10-03-2016 End: 10-15-2016 [place] [address] U SQ TWICE A DAY October 03, 2016 12:00am October 15, 2016 8:39am Start: 10-03-2016 End: 10-15-2016 [place] [address] UNITS SQ TWICE A DAY October 02, 2016 11:00pm October 15, 2016 7:39am ibuprofen 200 mg oral tablet (12 sources) Nonsteroidal Anti-inflammatory Drug Start: 10-19-2024 End: 01-25-2025 Ibuprofen (Advil) 200 mg tablet Discontinued 400 mg PO .1xwk as needed October 19, 2024 12:00am January 25, 2025 8:57am Start: 09-11-2018 End: 04-28-2024 take 1 capsule by mouth every six hours Ibuprofen 200 mg capsule Discontinued 200 mg PO EVERY 6 HOURS September 11, 2018 12:00am April 28, 2024 10:11am ipratropium bromide 0.021 mg/actuat metered dose nasal spray (1 source) Anticholinergic Start: 08-14-2024 End: 10-19-2024 Ipratropium Tererro 21 mcg (0.03 %) spray,non-aerosol Discontinued 2 NMA INTRANASAL 2 to 3 times per day as needed for postnasal drainage August 14, 2024 12:00am October 19, 2024 8:39am administer into each nostril Ipratropium Tererro 21 mcg (0.03 %) spray,non-aerosol (4 sources) Start: 08-14-2024 End: 10-19-2024 Ipratropium Tererro 21 mcg (0.03 %) spray,non-aerosol Discontinued 2 NMA INTRANASAL 2 to 3 times per day as needed for postnasal drainage August 14, 2024 12:00am October 19, 2024 8:39am administer into each nostril Start: 08-14-2024 End: 10-19-2024 Ipratropium Tererro 21 mcg ( 0.03 %) spray,non-aerosol Discontinued 2 NMA INTRANASAL 2 to 3 times per day as needed for postnasal drainage August 14, 2024 12:00am October 19, 2024 8:39am administer into each nostril levoFLOXacin 500 mg oral tablet (5 sources) Quinolone Antimicrobial Start: 05-18-2024 End: 04-11-2025 take 1 tablet by mouth every twenty-four hours Levofloxacin 500 mg tablet Discontinued 500 mg PO Q24H 10 0 May 18, 2024 1:00am August 14, 2024 11:09am meloxicam 15 mg oral tablet (7 sources) Nonsteroidal Anti-inflammatory Drug Start: 09-30-2018 End: 04-28-2024 Meloxicam 15 mg tablet Discontinued PO 24 24 September 30, 2018 12:00am April 28, 2024 10:11am Start: 09-30-2018 Meloxicam Acti ve PO 24 September 29, 2018 11:00pm naproxen 250 mg oral tablet (7 sources) Nonsteroidal Anti-inflammatory Drug Start: 10-15-2016 End: 10-29-2017 take 1 tablet by mouth every six hours as needed for pain Naproxen 250 MG tablet Discontinued 250 mg PO EVERY 6 HOURS NEEDED as needed for Pain October 15, 2016 12:00am October 29, 2017 10:29am nitrofurantoin, macrocrystals 25 mg / nitrofurantoin, monohydrate 75 mg oral capsule (17 sources) Nitrofuran Antibacterial Start: 10-22-2024 End: 10-29-2024 take 1 capsule by mouth every twelve hours at mealtime Nitrofurantoin Monohyd/M-Cryst 100 mg capsule Discontinued 1 NMA PO Q12H 14 7 0 October 22, 2024 12:00am October 28, 2024 12:00am October 29, 2024 12:07am administer with a meal/food; swallow whole; do not open, crush, dissolve , or chew Start: 05-12-2022 End: 05-19-2022 take 1 capsule by mouth every twelve hours at mealtime Nitrofurantoin Monohyd/M-Cryst (Macrobid) 100 mg capsule Discontinued 100 mg PO Q12H 14 7 0 May 12, 2022 1:04pm May 18, 2022 1:00am May 19, 2022 1:13am must administer with a meal/food Start: 12-01-2020 End: 12-08-2020 take 1 capsule by mouth every twelve hours at mealtime Nitrofurantoin Monohyd/M-Cryst (Macrobid) 100 mg capsule Discontinued 100 mg PO Q12H 14 7 0 December 01, 2020 12:00am December 07, 2020 12:00am December 08, 2020 12:01am must administer with a meal/food ondansetron 4 mg disintegrating oral tablet (7 sources) Serotonin-3 Receptor Antagonist Start: 05-20-2022 End: 04-28-2024 take 1 tablet by mouth every eight hours as needed for nausea Ondansetron 4 MG tablet Discontinued 4 mg PO EVERY 8 HOURS NEEDED as needed for Nausea 10 0 May 20, 2022 1:00am April 28, 2024 10:11am phenazopyridine hydrochloride 200 mg oral tablet (10 sources) Start: 10-22-2024 End: 01-25-2025 take 1 tablet by mouth three times daily as needed for pain Phenazopyridine (Pyridium) 200 mg tablet Discontinued 200 mg PO THREE TIMES A DAY as needed for pain 7 0 October 22, 2024 12:00am January 25, 2025 8:58am Start: 05-19-2022 End: 04-28-2024 take 1 tablet by mouth three times daily at mealtime for pain Phenazopyridine (Pyridium) 100 mg tablet Discontinued 100 mg PO THREE TIMES A DAY as needed for pain 7 0 May 19, 2022 1:00am April 28, 2024 10:11am administer with a full glass of water after each meal Vit,Brandon 78-Iron-Fol ic 1 TABLET tablet (2 sources) Start: 10-15-2016 End: 10-29-2017 Vit,Brandon 78-Iron-Fol ic 1 TABLET tablet Discontinued 1 {tbl} PO DAILY@1200 0 October 15, 2016 12:00am October 29, 2017 10:29am Start: 11-30-2014 End: 10-29-2017 Vit,Brandon 78-Iron-Fol ic 1 TABLET tablet Discontinued 1 {tbl} PO DAILY November 30, 2014 12:00am October 29, 2017 10:29am Vit,Afjz29-Teev-Ahjhp (4 sources) Start: 10-15-2016 End: 10-29-2017 take 1 tablet by mouth once daily Vit,Pbdv69-Sdwj-Vskhx Discontinued 1 TABLET PO DAILY@1200 October 14, 2016 11:00pm October 29, 2017 9:29am Start: 11-30-2014 End: 10-29-2017 take 1 tablet by mouth once daily Vit,Otwf58-Ovlq-Qjxsd Discontinued 1 TABLET PO DAILY November 29, 2014 11:00pm October 29, 2017 9:29am Vit,Yrro73-Czcu-Aonwh 1 TABLET tablet (8 sources) Start: 10-15-2016 End: 10-29-2017 take 1 tablet by mouth once daily Vit,Bxfc58-Fnsy-Xhjva 1 TABLET tablet Discontinued 1 {tbl} PO DAILY@1200 0 October 15, 2016 12:00am October 29, 2017 10:29am Start: 10-15-2016 End: 10-29-2017 take 1 tablet by mouth once daily Vit,Vqfu81-Tdpr-Qqsxm 1 TABLET tablet Discontinued 1 {tbl} PO DAILY@1200 October 15, 2016 12:00am October 29, 2017 10:29am Start: 11-30-2014 End: 10-29-2017 take 1 tablet by mouth once daily Vit,Faor74-Nujn-Rzwmn 1 TABLET tablet Discontinued 1 {tbl} PO DAILY November 30, 2014 12:00am October 29, 2017 10:29am Start: 11-30-2014 End: 10-29-2017 take 1 tablet by mouth once daily Vit,Pomb80-Umhi-Tbtew 1 TABLET tablet Discontinued 1 {tbl} PO DAILY November 30, 2014 12:00am October 29, 2017 10:29am simethicone 80 mg chewable tablet (7 sources) Start: 10-15-2016 End: 10-29-2017 take 1 tablet by mouth at bedtime as needed for pain Simethicone 80 MG tablet Discontinued 80 mg PO AFTER MEALS AND AT BEDTIME as needed for Indigestion/stomach pain 30 0 October 15, 2016 12:00am October 29, 2017 10:30am sulfamethoxazole 800 mg / trimethoprim 160 mg oral tablet (12 sources) Dihydrofolate Reductase Inhibitor Antibacterial, Sulfonamide Antimicrobial Start: 08-14-2024 End: 08-21-2024 Sulfamethoxazole-Trimet hoprim (Bactrim Ds) 800-160 mg tablet Discontinued 1 {tbl} PO Q12H 14 7 0 August 14, 2024 12:00am August 20, 2024 12:00am August 21, 2024 12:07am Start: 05-19-2022 End: 05-26-2022 Sulfamethoxazole-Trimethopri m (Bactrim Ds) 800-160 mg tablet Discontinued 1 {tbl} PO Q12H 14 7 0 May 19, 2022 1:00am May 25, 2022 1:00am May 26, 2022 1:10am Problems Active Problems Problem Classification Problem Date Documented Da te Episodic/Chronic Abdominal pain (7 sources) Abdominal pain; Translations: [Unspecified abdominal pain] 05-28-2022 Episodic Anxiety disorders (11 sources) Mixed anxiety and depressive disorder; Translations: [Anxiety disorder, unspecified] Onset: 10-19-2024 10-19-2024 Chronic Chronic obstructive pulmonary disease and bronchiectasis (8 sources) Bronchitis; Translations: [Bronchitis, not specified as acute or chronic] 12-17-2018 Episodic Headache; including migraine (7 sources) Migraine; Translations: [Migraine, unspecified, not intractable, without status migrainosus] 12-19-2018 Chronic Immunizations and screening for infectious disease (8 sources) Patient encounter status; Translations: [Encounter for screening for COVID-19] 04-17-2021 Episodic Mood disorders (1 source) Mood disorders; Translations: [Depression, unspecified] Onset: 10-19-2024 Nausea and vomiting (7 sources) Nausea and vomiting; Translations: [Nausea with vomiting, unspecified] 05-09-2016 Episodic Other nutritional; endocrine; and metabolic disorders (9 sources) Obesity; Translations: [Obesity, unspecified] 10-19-2024 Chronic Other nutritional; endocrine; and metabolic disorders (1 source) Obesity, unspecified; Translations: [Obesity, unspecified] Onset: 10-19-2024 Chronic Otitis media and related conditions (14 sources) Acute bilateral otitis media ; Translations: [Otitis media, unspecified, bilateral] 12-09-2021 Episodic Residual codes; unclassified (2 sources) Insomnia; Translations: [Insomnia, unspecified] 01-25-2025 Episodic Sprains and strains (18 sources) Sprain of ankle; Translations: [Sprain of unspecified ligament of right ankle, initial encounter] Episodic Unclassified (5 sources) Z00.00 - Encounter for general adult medical examination without abnormal findings Unclassified (1 source) Encounter for preventive care Unclassified (1 source) Patient encounter status Urinary tract infections (20 sources) Urinary tract infectious disease; Translations: [Urinary tract infection, site not specified] Episodic Past or Other Problems Problem Classification Problem Date Documented Da te Episodic/Chronic Genitourinary symptoms and ill-defined conditions (2 sources) Unspecified abnormal findings in urine; Translations: [Dysuria] Onset: 10-22-2024 Episodic Other upper respiratory infections (20 sources) Upper respiratory infection; Translations: [Acute upper respiratory infection, unspecified] Onset: 05-18-2024 Episodic Results Test Name Value Interpretation Reference Range Facility Internal Medicine Office Vis sarah 01-25-2025 Internal Medicine Office Visit [facility] [address] [place] [address] [place] [address] OFFICE VISIT Date of Service: 01/25/25 MR#: [id number] Acct: [id number] Name: KRISTEN CHRISTY Rep #: [id number] : 1995 Provider: Dr. Grupo guaman MD Age/Sex: 29/F Location: [facility] Status: Signed Intake Vital Signs 10/19/24 08:38 01/25/25 08:59 Height 5 ft 8 in 5 ft 8 in Weight: 252 lb BMI 38.2 BP 110/80 Blood Pressure Location Lt brachial Position Sitting Respiration 16 Pulse 94 Pulse Source Monitor Temp 98.0 F Temp Source Temporal Pulse Oximetry (%) 99 Oxygen Delivery Method room air Intake Visit Reasons: 3 month Chief Complaint: 3 MONTH FU Is patient in pain?: No Allergies metoclopramide (From Reglan) Adverse Reaction (Mild, Verified 01/25/25 08:57) RESTLESS, ITCHING, FLUSHING Food Allergies: Uncoded Adverse Reaction (Verified 01/25/25 08:57) Vomiting Penicillins Adverse Reaction (Verified 01/25/25 08:57) Vomiting Medications ???Medication ???Instructions ???Recorded ???Confirmed ???Type trazodone 50 mg tablet 50 mg PO QHS PRN insomnia #30 tabs 01/25/25 01/25/25 Rx venlafaxine 75 mg capsule,extended 75 mg PO QDAY 3 months #90 caps 01/25/25 01/25/25 Rx release 24 hr PFSH Medical History (Updated 01/25/25 @ 09:[address] Grupo Zavala MD) Insomnia Anxiety and depression Obesity Preventative health care Right ankle sprain Acute pharyngitis, unspecified URI (upper respiratory infection) UTI (urinary tract infection) Pulmonary embolism Surgical History History of 2 sections Family History Father Diabetes Hypertension Depression CVA (cerebral vascular accident) Brother Bipolar 1 disorder Suicide attempt Mother Depression Anxiety Suicide attempt Other Arthritis Fibromyalgia Social History household members: family current occupational status: unemployed Smoking Status: Never smoker alcohol intake: never substance use type: does not use caffeine: Yes (AM) Type: coffee what type of physical activity do you participate in: none seatbelt use: always do you feel safe at home: Yes additional social history: German jean-baptiste Patient is stay at home mom HPI HPI Chief Complaint: 3 MONTH FU Details: KRISTEN CHRISTY, is a 29-year-old female presenting with medication management issues and sleep disturbances. History of anxiety and depression, initially started on Lexapro, however switched to venlafaxine which she has tolerated better but unsure of its effectiveness at this time due to a particularly stressful month. She is open to dose adjustment. Her sleep pattern is notably disrupted. The patient reports difficulty maintaining sleep, although a sleep aid in the form of an tuwz-fvc-wbtpsmx drink helps her fall asleep. She sleeps at least six hours, although not consecutively, and does not feel rested upon waking. The patient uses caffeinated drinks frequently to combat morning grogginess and describes difficulty initiating morning activities, particularly needing to manage responsibilities early in the day with limited rest. Other chronic medical conditions are stable. Attestation: Documentation on this patient encounter was supported using ambient scribe technology/ voice AI technology. The patient consented to recording for the purpose of documenting the encounter. Provider reviewed content of the generated note prior to signature. ROS Const Constitutional: No body ache, chills, excessive sweating, fatigue, fever(s), frequent falls, headache(s), snoring, weakness, sleep problems or change in appetite Eyes Eyes: No blurry vision, change in vision, discharge, vision loss or Light sensitivity ENT ENT: No abnormal hearing, ear or mastoid pain, tinnitus, dizziness/vertigo, nasal congestion, nasal discharge, headache(s), neck pain or sore throat Resp Respiratory: No cough, excessive phlegm production, hemoptysis, shortness of breath, snoring or wheezing Cardio Cardiology: No chest pain at rest, chest pain with exertion, excessive sweating, shortness of breath, dyspnea on exertion, lightheadedness, orthopnea or palpitations Gastro GI: No abdominal pain, change in bowel habits, constipation, cramping, diarrhea or nausea/dyspepsia Genitourinary-Female : No burning urination, painful urination, urinary incontinence or urinary frequency Musc Musculoskeletal: No abnormal gait, joint pain, back pain, limited range of motion, muscle weakness, neck pain or numbness Skin Skin: No dry skin, redness, lesions, itchy eyes, rash or wounds Neuro Neurology: No abnormal gait, abnormal hearing, abnormal speech, behavioral (more content not included)... Normal [facility] Urine Cultureon 10-25-2024 URC Mixed Gram Positive Organisms Oscar Count 25,000-50,000 MIXC Mixed contaminants. Submit a new specimen if indicated. Normal [facility] Comment on above: Performed By: #### M [id number] #### [facility] [address] [place], [address] Urine cultureOrdered By: Abbe Ferrer on 10-23-2024 Bacteria identified Cx Nom (U) Positive Abnormal [facility] - Chemistry and C hemistry - challengeOrdered By: Nathan Ferrer on 10-22-2024 HCG ( test) Ql (U) Negative [facility] Bilirubin Ql (U) Negative [facility] Glucose Ql (U) Negative [facility] Ketones Ql (U) Negative [facility] pH (U) 6.0 [pH] [facility] Specific gravity (U) [Rel density] 1.020 [facility] Urobilinogen (U) [Mass/Vol] Negative [facility] - Hematology and Cell countsOrdered By: Nathan Ferrer on 10-22-2024 Hemoglobin Ql (U) Trace [facility] - Specimen inform ationOrdered By: Nathan Ferrer on 10-22-2024 Clarity (U) Clear [facility] Color (U) Yellow [facility] - UrinalysisOrder ed By: Nathan Ferrer on 10-22-2024 Nitrite Ql (U) Negative [facility] Protein Ql (U) Trace [facility] No Panel InformationOrdered By: Nathan Ferrer on 10-22-2024 Urine Leukocytes Positive [facility] Urine Non-Hemolyzed Blood Negative [facility]gent [facility] Visit Reporton 0 10-22-2024 Urgent Care Visit Report [facility] [address], [address] [place] [address] OFFICE VISIT Date of Service: 10/22/24 MR#: [id number] Acct: [id number] Name: KRISTEN CHRISTY Rep #: [id number] : 1995 Provider: MANUEL Griffith Age/Sex: 29/F Location: [facility] Status: Signed Intake Vital Signs 10/19/24 08:38 10/22/24 16:51 Height 5 ft 8 in Weight: 256 lb BMI 38.9 BP 124/66 H 114/84 H Blood Pressure Location Lt brachial Lt brachial Position Sitting Sitting Respiration 18 16 Pulse 107 H 107 H Pulse Source Monitor NIBP Temp 99.0 F 98.7 F Temp Source Temporal Oral Pulse Oximetry (%) 99 96 Oxygen Delivery Method room air room air Intake Visit Reasons: CONCERN FOR UTI Chief Complaint: dysuria, back pain, frequency [place] Required: No Is patient in pain?: Yes Allergies metoclopramide (From Reglan) Adverse Reaction (Mild, Verified 10/22/24 16:51) RESTLESS, ITCHING, FLUSHING Food Allergies: Uncoded Adverse Reaction (Verified 10/22/24 16:51) Vomiting Penicillins Adverse Reaction (Verified 10/22/24 16:51) Vomiting Is last menstrual period known: No Post menopausal: No Patient : No Have you fallen in the past year?: No Nurse's Note: dysuria, frequency, flank pain x 2 days. denies fever, blood in urine. concern for UTI [facility] Medical History (Updated 10/22/24 @ 17:01 by MANUEL Ford) Anxiety and depression Obesity Preventative health care Right ankle sprain Acute pharyngitis, unspecified URI (upper respiratory infection) UTI (urinary tract infection) Pulmonary embolism Surgical History History of 2 sections Family History (Updated 10/19/24 @ 08:43 by Jayashree Fam LPN) Father Diabetes Hypertension Depression CVA (cerebral vascular accident) Brother Bipolar 1 disorder Suicide attempt Mother Depression Anxiety Suicide attempt Other Arthritis Fibromyalgia Social History (Updated 10/19/24 @ 08:44 by Jayashree Fam LPN) household members: family current occupational status: unemployed Smoking Status: Never smoker alcohol intake: never substance use type: does not use caffeine: Yes (AM) Type: coffee what type of physical activity do you participate in: none seatbelt use: always do you feel safe at home: Yes additional social history: Lasrjw-Ywcehav-Mltpi estiven Patient is stay at home mom HPI HPI Chief Complaint: dysuria, back pain, frequency Details: KRISTEN CHRISTY, is a 29 F who presents to the office today for complaint of dysuria, low back pain and increasing urgency/frequency for the past 2 days. Patient denies fever, chills or sweats. No nausea, vomiting or diarrhea. No loss of bowel or bladder control. No other associated symptoms or alleviating/aggravat ing factors. ROS Const Constitutional: No other (As above) Exam Const General: cooperative and healthy appearing Resp Effort Inspection: normal respiratory effort Auscultation: Bilateral: Clear to Auscultation Cardio Rate: regular rate Rhythm: regular rhythm GI Auscultation: normal bowel sounds General: No CVA tenderness Psych Appearance: grossly normal Mental Status: mental status grossly normal Results POC Urine Office , Urine Negative Last Edit by Mirella Umana on 10/22/24 16:57 POC Urinalysis Dip (Clinic) Office Urine Color Yellow Last Edit by Mirella Umana on 10/22/24 16:58 Office Urine Clarity Clear Last Edit by Mirella Umana on 10/22/24 16:58 Office Urine Glucose Negative Last Edit by Mirella Umana on 10/22/24 16:58 Office Urine Ketones Negative Last Edit by Mirella Umana on 10/22/24 16:58 Off Ur Spec Hyndman 1.020 Last Edit by Mirella Umana on 10/22/24 16:58 Office Urine pH 6.0 Last Edit by Mirella Umana on 10/22/24 16:58 Office Urine Bilirubin Negative Last Edit by Mirella Umana on 10/22/24 16:58 Office Urine Urobilinogen Negative Last Edit by Mirella Umana on 10/22/24 16:58 Office Urine Blood Trace Last Edit by Mirella Umana on 10/22/24 16:58 Office Urine Blood Hemolyzed Negative Last Edit by Mirella Umana on 10/22/24 16:58 Office Urine Protein Trace Last Edit by Mirella Umana on 10/22/24 16:58 Office Urine Nitrate Negative Last Edit by Mirella Umana on 10/22/24 16:58 Off Ur Leukocytes Positive Last Edit by Mirella Umana on 10/22/24 16:58 Coding Level of Care Code Off vis,est,level 3 Diagnoses Cystitis N30.90 Assessment and Plan Assessment and Plan (1) Cystitis: Status: Acute Orders: Orders POC Urinalysis Dip (Clinic) Today R30.0 - Dysuria POC Urine Today R30.0 - Dysuria Culture, Urine Today R82.90 - Unspecified abnormal findings in urine Medications: New nitrofurantoin (more content not included)... Normal [facility] Comprehensive Metabolic Prof ilon 10-20-2024 Albumin [Mass/Vol] 4.0 g/dL Normal 3.5-5.0 [facility] Comment on above: Performed By: #### L 501.9520, L100.0100, L500.4050, L503.0106, L506.0400, L500.4100, L501.9985 #### [facility] [address] [place], [place], [id number] Albumin/Globulin [Mass ratio] 1.2 {ratio} Normal 0.9-2.4 [facility] Comment on above: Performed By: #### L 501.9520, L100.0100, L500.4050, L503.0106, L506.0400, L500.4100, L501.9985 #### [facility] [address] [place], [address] ALK PHOS 82 U/L Normal 35-104 [facility] Comment on above: Performed By: #### L 501.9520, L100.0100, L500.4050, L503.0106, L506.0400, L500.4100, L501.9985 #### [facility] [address] [place], [address] ALT [Catalytic activity/Vol] 25 U/L Normal <=34 [facility] Comment on above: Performed By: #### L 501.9520, L100.0100, L500.4050, L503.0106, L506.0400, L500.4100, L501.9985 #### [facility] [address] [place], [address] AST [Catalytic activity/Vol] 18 U/L Normal <=31 [facility] Comment on above: Performed By: #### L 501.9520, L100.0100, L500.4050, L503.0106, L506.0400, L500.4100, L501.9985 #### [facility] [address] [place], [address] Bilirubin [Mass/Vol] 0.31 mg/dL Normal 0.00-1.30 [facility] Comment on above: Performed By: #### L 501.9520, L100.0100, L500.4050, L503.0106, L506.0400, L500.4100, L501.9985 #### [facility] [address] [place], [address] BUN/CRE 14.9 RATIO Normal 10-20 [facility] Comment on above: Performed By: #### L 501.9520, L100.0100, L500.4050, L503.0106, L506.0400, L500.4100, L501.9985 #### [facility] [address] [place], [address] Calcium [Mass/Vol] 9.0 mg/dL Normal 7.6-11.0 [facility] Comment on above: Performed By: #### L 501.9520, L100.0100, L500.4050, L503.0106, L506.0400, L500.4100, L501.9985 #### [facility] [address] [place], [address] Chloride [Moles/Vol] 104 mmol/L Normal 98-108 [facility] Comment on above: Performed By: #### L 501.9520, L100.0100, L500.4050, L503.0106, L506.0400, L500.4100, L501.9985 #### [facility] [address] [place], [address] CO2 [Moles/Vol] 24.4 mmol/L Normal 21.0-32.0 [facility] Comment on above: Performed By: #### L 501.9520, L100.0100, L500.4050, L503.0106, L506.0400, L500.4100, L501.9985 #### [facility] [address] [place], [address] Creatinine [Mass/Vol] 0.74 mg/dL Normal 0.70-1.20 [facility] Comment on above: Performed By: #### L 501.9520, L100.0100, L500.4050, L503.0106, L506.0400, L500.4100, L501.9985 #### [facility] [address] [place], [address] GAP 11 Normal 5-15 [facility] Comment on above: Performed By: #### L 501.9520, L100.0100, L500.4050, L503.0106, L506.0400, L500.4100, L501.9985 #### [facility] [address] [place], [address] GFR/1.73 sq M.predicted among non-blacks MDRD (S/P/Bld) [Vol rate/Area] 112 mL/min/{1.73_m2} Normal >60 [facility] Comment on above: Result Comment: mL/m in/1.73m2 CKD-EPI Creatinine Equation (2020) Performed By: #### L 501.9520, L100.0100, L500.4050, L503.0106, L506.0400, L500.4100, L501.9985 #### [facility] [address] [place], [address] Globulin (S) [Mass/Vol] 3.2 g/dL Normal 2.2-4.2 [facility] Comment on above: Performed By: #### L 501.9520, L100.0100, L500.4050, L503.0106, L506.0400, L500.4100, L501.9985 #### [facility] [address] [place], [address] Glucose [Mass/Vol] 92 mg/dL Normal 70-99 [facility] Comment on above: Performed By: #### L 501.9520, L100.0100, L500.4050, L503.0106, L506.0400, L500.4100, L501.9985 #### [facility] [address] [place], [address] Potassium [Moles/Vol] 4.7 mmol/L Normal 3.3-5.1 [facility] Comment on above: Performed By: #### L 501.9520, L100.0100, L500.4050, L503.0106, L506.0400, L500.4100, L501.9985 #### [facility] [address] [place], [address] Sodium [Moles/Vol] 139 mmol/L Normal 133-145 [facility] Comment on above: Performed By: #### L 501.9520, L100.0100, L500.4050, L503.0106, L506.0400, L500.4100, L501.9985 #### [facility] [address] [place], [address] T PROT 7.2 g/dL Normal 5.9-8.4 [facility] Comment on above: Performed By: #### L 501.9520, L100.0100, L500.4050, L503.0106, L506.0400, L500.4100, L501.9985 #### [facility] [address] [place], [address] Urea nitrogen [Mass/Vol] 11 mg/dL Normal 4-19 [facility] Comment on above: Performed By: #### L 501.9520, L100.0100, L500.4050, L503.0106, L506.0400, L500.4100, L501.9985 #### [facility] [address] [place], [place], [id number] (038) Lipid Profileon 10-20-2024 CHOL:HDL 4.90 Normal [facility] Comment on above: Performed By: #### L 501.9520, L100.0100, L500.4050, L503.0106, L506.0400, L500.4100, L501.9985 #### [facility] [address] [place], [address] Cholesterol [Mass/Vol] 176 mg/dL Normal <=200 [facility] Comment on above: Result Comment: Chol esterol level, Desirable <200 mg/dL Borderline high cholesterol 200-239 mg/dL High cholesterol >=240 mg/dL Recommendations of the NCEP Adult Treatment Panel for the following risk-cutoff thresholds for the [place] population. Performed By: #### L 501.9520, L100.0100, L500.4050, L503.0106, L506.0400, L500.4100, L501.9985 #### [facility] [address] [place], [address] Cholesterol in HDL [Mass/Vol] 36 mg/dL Low [facility] Comment on above: Result Comment: Nereida onal Cholesterol Education Program (NCEP) guidelines: <40 mg/dL: Low HDL-cholesterol (major risk factor for CHD) >= 60 mg/dL: High HDL-cholesterol (negative risk factor for CHD) HDL-cholesterol is affected by a number of factors, e.g. smoking, exercise, hormones, sex and age. Performed By: #### L 501.9520, L100.0100, L500.4050, L503.0106, L506.0400, L500.4100, L501.9985 #### [facility] [address] [place], [address] Cholesterol in LDL [Mass/Vol] 123 mg/dL Normal [facility] Comment on above: Result Comment: Bord tymuyn=261-296 mg/dL Higher Zkhy=274 mg/dL or greater Performed By: #### L 501.9520, L100.0100, L500.4050, L503.0106, L506.0400, L500.4100, L501.9985 #### [facility] [address] [place], [address] Cholesterol in VLDL [Mass/Vol] 17 mg/dL Normal 5-40 [facility] Comment on above: Performed By: #### L 501.9520, L100.0100, L500.4050, L503.0106, L506.0400, L500.4100, L501.9985 #### [facility] [address] [place], [address] Triglyceride [Mass/Vol] 85 mg/dL Normal [facility] Comment on above: Result Comment: The drugs N-Acetylcysteine and Metamizole may falsely depress this assay. Normal range: <150 mg/dL Borderline High: 150-199 mg/dL High: 200-499 mg/dL Very High: >500 mg/dL Performed By: #### L 501.9520, L100.0100, L500.4050, L503.0106, L506.0400, L500.4100, L501.9985 #### [facility] [address] [place], [place], [id number] T4 Free Directon 10-20-2024 T4 FREE DIRECT 1.00 ng/dL Normal 0.76-1.46 [facility] Comment on above: Performed By: #### L 501.9520, L100.0100, L500.4050, L503.0106, L506.0400, L500.4100, L501.9985 ####[facility] [id number] [facility] [place], [place], [id number] Thyroid Stim Hormone (TSH)on 10-20-2024 TSH 3.280 uIU/mL Normal 0.300-4.200 [facility] Comment on above: Performed By: #### L 501.9520, L100.0100, L500.4050, L503.0106, L506.0400, L500.4100, L501.9985 #### [facility] [address] [place], [place], [id number] Vitamin B12on 10-20-2024 Cobalamin (Vitamin B12) [Mass/Vol] 271 pg/mL Normal 180-914 [facility] Comment on above: Performed By: #### L 501.9520, L100.0100, L500.4050, L503.0106, L506.0400, L500.4100, L501.9985 #### [facility] [address] [place], [place], [id number] Absolute lymphocyte countOrd ered By: Grupo Zavala on 10-19-2024 Lymphocytes Auto (Unsp spec) [#/Vol] 2.34 10*3/uL 0.83-4.51 [facility] Absolute neutrophil countOrd ered By: Grupo Zavala on 10-19-2024 Neutrophils (Bld) [#/Vol] 6.5 10*3/uL 2.0-7.7 [facility] Anion gap in Serum or Plasma Ordered By: Grupo Zavala on 10-19-2024 Anion gap [Moles/Vol] 11 mmol/L 5-15 [facility] Automated lymphocyte count a s percentage of total leukocytesOrdered By: nickie Zavala on 10-19-2024 Lymphocytes/100 WBC Auto (Unsp spec) 23.9 % 19- [facility] BUN/creatinine ratioOrdered By: [facility] Bell[facility]ellie on 10-19-2024 Urea nitrogen/Creatinine [Mass ratio] 14.9 mg/mg 10- [facility] Basophil percentageOrdered B y: Grupo Zavala on 10-19-2024 Basophils/100 WBC (Bld) 0.6 % 0-1 [facility] Bilirubin, totalOrdered By: Grupo Zavala on 10-19-2024 Bilirubin [Mass/Vol] 0.31 mg/dL 0.00-1.30 [facility] CBC W/Diff, Automatedon 10-04 Absolute Lymph 2.34 X10 3/uL Normal 0.83-4.51 [facility] Comment on above: Performed By: #### L 501.9520, L100.0100, L500.4050, L503.0106, L506.0400, L500.4100, L501.9985 #### [facility] [address] [place], [address] Absolute Neut 6.5 X10 3/uL Normal 2.0-7.7 [facility] Comment on above: Performed By: #### L 501.9520, L100.0100, L500.4050, L503.0106, L506.0400, L500.4100, L501.9985 #### [facility] [address] [place], [address] Basophils/100 WBC (Bld) 0.6 % Normal 0-[address] [facility] Comment on above: Performed By: #### L 501.9520, L100.0100, L500.4050, L503.0106, L506.0400, L500.4100, L501.9985 #### [facility] [address] [place], [address] Eosinophils/100 WBC (Bld) 3.5 % Normal 0-5 [facility] Comment on above: Performed By: #### L 501.9520, L100.0100, L500.4050, L503.0106, L506.0400, L500.4100, L501.9985 #### [facility] [address] [place], [address] Erythrocyte distribution width (RBC) [Ratio] 13.7 % Normal 11.6-14.6 [facility] Comment on above: Performed By: #### L 501.9520, L100.0100, L500.4050, L503.0106, L506.0400, L500.4100, L501.9985 #### [facility] [address], [address] Hematocrit (Bld) [Volume fraction] 40.4 % Normal 37-47 [facility] Comment on above: Performed By: #### L 501.9520, L100.0100, L500.4050, L503.0106, L506.0400, L500.4100, L501.9985 #### [facility] [address] [place], [address] Hemoglobin (Bld) [Mass/Vol] 12.7 g/dL Normal 12.0-15.0 [facility] Comment on above: Performed By: #### L 501.9520, L100.0100, L500.4050, L503.0106, L506.0400, L500.4100, L501.9985 #### [facility] [address] [place], [address] IG% 0.300 Normal 0.0-0.9 [facility] Comment on above: Result Comment: IG% - Immature Granulocytes (promyelocytes, myelocytes and metamyelocytes) > 1% indicates that a LEFT SHIFT is Present. Performed By: #### L 501.9520, L100.0100, L500.4050, L503.0106, L506.0400, L500.4100, L501.9985 #### [facility] [address] [place], [address] Lymphocytes/100 WBC (Bld) 23.9 % Normal 19-41 [facility] Comment on above: Performed By: #### L 501.9520, L100.0100, L500.4050, L503.0106, L506.0400, L500.4100, L501.9985 #### [facility] [address] [place], [address] MCH (RBC) [Entitic mass] 26.3 pg Low 27.0-32.0 [facility] Comment on above: Performed By: #### L 501.9520, L100.0100, L500.4050, L503.0106, L506.0400, L500.4100, L501.9985 #### [facility] [address] [place], [address] MCHC (RBC) [Mass/Vol] 31.4 g/dL Low 32-36 [facility] Comment on above: Performed By: #### L 501.9520, L100.0100, L500.4050, L503.0106, L506.0400, L500.4100, L501.9985 #### [facility] [address] [place], [address] MCV (RBC) [Entitic vol] 83.8 fL Normal 81-[address] [facility] Comment on above: Performed By: #### L 501.9520, L100.0100, L500.4050, L503.0106, L506.0400, L500.4100, L501.9985 #### [facility] [address] [place], [address] Monocytes/100 WBC (Bld) 5.3 % Normal 0-10 [facility] Comment on above: Performed By: #### L 501.9520, L100.0100, L500.4050, L503.0106, L506.0400, L500.4100, L501.9985 #### [facility] [address] [place], [address] Neutrophils/100 WBC (Bld) 66.4 % Normal 47-70 [facility] Comment on above: Performed By: #### L 501.9520, L100.0100, L500.4050, L503.0106, L506.0400, L500.4100, L501.9985 #### [facility] [address] [place], [address] Nucleated RBC (Bld) [#/Vol] 0 10*3/uL Normal 0-5 [facility] Comment on above: Performed By: #### L 501.9520, L100.0100, L500.4050, L503.0106, L506.0400, L500.4100, L501.9985 #### [facility] [address] [place], [address] Platelet mean volume (Bld) [Entitic vol] 10.7 fL Normal 6.2-12.0 [facility] Comment on above: Performed By: #### L 501.9520, L100.0100, L500.4050, L503.0106, L506.0400, L500.4100, L501.9985 #### [facility] [address] [place], [address] Platelets (Bld) [#/Vol] 454 10*3/uL High 150-450 [facility] Comment on above: Performed By: #### L 501.9520, L100.0100, L500.4050, L503.0106, L506.0400, L500.4100, L501.9985 #### [facility] [address] [place], [address] RBC (Bld) [#/Vol] 4.82 10*6/uL Normal 4.2-5.4 [facility] Comment on above: Performed By: #### L 501.9520, L100.0100, L500.4050, L503.0106, L506.0400, L500.4100, L501.9985 #### [facility] [address] [place], [address] ( RDW SD 42.5 fl Normal 35.1-43.9 [facility] Comment on above: Performed By: #### L 501.9520, L100.0100, L500.4050, L503.0106, L506.0400, L500.4100, L501.9985 #### [facility] [address] [place], [address] WBC (Bld) [#/Vol] 9.8 10*3/uL Normal 4.4-11.0 [facility] Comment on above: Performed By: #### L 501.9520, L100.0100, L500.4050, L503.0106, L506.0400, L500.4100, L501.9985 #### [facility] [address] [place], [address] Calculated very low density lipoprotein (VLDL) cholesterol measurementOrdered By: Grupo Zavala on 10-19-2024 Calculated very low density lipoprotein (VLDL) cholesterol measurement 17 mg/dL 5-40 [facility] Carbon dioxide, total [Moles /volume] in Central venous bloodOrdered By: Grupo Zavala on 10-19-2024 CO2 [Moles/Vol] 24.4 mmol/L 21.0-32.0 [facility] Chloride assayOrdered By: Jc Zavala on 10-19-2024 Chloride [Moles/Vol] 104 mmol/L 98-108 [facility] Eosinophil percentageOrdered By: Grupo Zavala on 10-19-2024 Eosinophils/100 WBC (Bld) 3.5 % 0-5 [facility] Erythrocyte distribution wid th ratioOrdered By: [facility] on 10-19-2024 Erythrocyte distribution width (RBC) [Ratio] 13.7 % 11.6-14.6 [facility] Erythrocyte distribution wid th standard deviationOrdered By: [facility] Zavala on 10-19-2024 Erythrocyte distribution width (RBC) [Ratio] 42.5 fl 35.1-43.9 [facility] Glomerular filtration rate ( GFR) estimation/1.73 sq m using serum, plasma, or whole bOrdered By: nickie Zavala on 10-19-2024 GFR/1.73 sq M.predicted among non-blacks MDRD (S/P/Bld) [Vol rate/Area] 112 mL/min/{1.73_m2} >60 [facility] Comment on above: mL/min/1.73m2 CKD-EP I Creatinine Equation (2020) Hematocrit Auto (Bld) [Volum e fraction]Ordered By: Grupo Zavala on 10-19-2024 Hematocrit (Bld) [Volume fraction] 40.4 % 37-47 [facility] Hemoglobin A1con 10-19-2024 HbA1c (Bld) [Mass fraction] 5.6 % Normal <=5.6 [facility] Comment on above: Result Comment: Norm al < 5.7 % Prediabetic 5.7 - 6.4 % Diabetic >or= 6.5 % Please note range changes. Performed By: #### L 501.9520, L100.0100, L500.4050, L503.0106, L506.0400, L500.4100, L501.9985 #### [facility] [place], [address] Hemoglobin A1c percentageOrd ered By: Grupo Zavala on 10-19-2024 HbA1c (Bld) [Mass fraction] 5.6 % <5.7 [facility] Comment on above: Normal < 5.7 % Predi abetic 5.7 - 6.4 % Diabetic >or= 6.5 % Please note range changes. Hemoglobin measurementOrdere d By: Grupo Zavala on 10-19-2024 Hemoglobin (Bld) [Mass/Vol] 12.7 g/dL 12.0-15.0 [facility] Immature granulocytes/100 WB C Auto (Bld)Ordered By: Grupo Zavala on 10-19-2024 Immature granulocytes/100 WBC (Bld) 0.300 % 0.0-0.9 [facility] Comment on above: IG% - Immature Granu locytes (promyelocytes, myelocytes and metamyelocytes) > 1% indicates that a LEFT SHIFT is Present. Internal Medicine Office Vis iton 10-19-2024 Internal Medicine Office Visit [facility] [address] [place] [address] [place] [address] OFFICE VISIT Date of Service: 10/19/24 MR#: [id number] Acct: [id number] Name: KRISTEN CHRISTY Rep #: [id number] : 1995 Provider: Dr. Grupo guaman MD Age/Sex: 29/F Location: [facility] Status: Signed Intake Vital Signs 05/18/24 11:56 10/19/24 08:38 Height 5 ft 8 in 5 ft 8 in Weight: 235 lb 2 oz 256 lb BMI 35.7 38.9 BP 122/80 H 124/66 H Blood Pressure Location Lt brachial Position Sitting Sitting Respiration 18 Pulse 108 H 107 H Pulse Source Monitor Temp 97.7 F L 99.0 F Temp Source Temporal Pulse Oximetry (%) 98 99 Oxygen Delivery Method room air room air Intake Visit Reasons: EST NEW PT - [facility] SENT Chief Complaint: EST NEW PT- [facility] SENT Is patient in pain?: No Allergies metoclopramide (From Reglan) Adverse Reaction (Mild, Verified 10/19/24 08:34) RESTLESS, ITCHING, FLUSHING Food Allergies: Uncoded Adverse Reaction (Verified 10/19/24 08:34) Vomiting Penicillins Adverse Reaction (Verified 10/19/24 08:34) Vomiting Medications ???Medication ???Instructions ???Recorded ???Confirmed ???Type escitalopram oxalate 10 mg tablet 10 mg PO QDAY #30 tabs 10/19/24 0 10/19/24 Rx (Lexapro) ibuprofen 200 mg tablet (Advil) 400 mg PO .1xwk PRN 10/19/2410/19 History PFS Medical History (Updated 10/19/24 @ 09:[address] Grupo Zavala MD) Anxiety and depression Obesity Preventative health care Right ankle sprain Acute pharyngitis, unspecified URI (upper respiratory infection) UTI (urinary tract infection) Pulmonary embolism Surgical History History of 2 sections Family History (Updated 10/19/24 @ 08:43 by Jayashree Fam LPN) Father Diabetes Hypertension Depression CVA (cerebral vascular accident) Brother Bipolar 1 disorder Suicide attempt Mother Depression Anxiety Suicide attempt Other Arthritis Fibromyalgia Social History (Updated 10/19/24 @ 08:44 by Jayashree Fam LPN) household members: family current occupational status: unemployed Smoking Status: Never smoker alcohol intake: never substance use type: does not use caffeine: Yes (AM) Type: coffee what type of physical activity do you participate in: none seatbelt use: always do you feel safe at home: Yes additional social history: German jean-baptiste Patient is stay at home mom Questionnaire PQH-9 BMS Over the last 2 weeks, how often have you been bothered by any of the following problems? 1. Little interest or pleasure in doing things: several days 2. Feeling down, depressed, or hopeless: several days 3. Trouble falling or staying asleep, or sleeping too much: nearly every day (unable to sleep ) 4. Feeling tired or having little energy: nearly every day 5. Poor appetite or overeating: nearly every day 6. Feeling bad about yourself - or that you are a failure or have let yourself and your family down: several days 7. Trouble concentrating on things, such as reading the newspaper or watching television: nearly every day 8. Moving or speaking so slowly that other people could have noticed? - Or the opposite - being so fidgety or restless that you have been moving around a lot more than usual: not at all 9. Thoughts that you would be better off or of hurting yourself in some way: not at all Total score: 15 Source: Developed by Drs. Isai Motley, Deisy Choudhary, Troy Pastor and colleagues, with an educational regan from [employer]. PASHA-7 BMS PASHA-7 Feeling nervous, anxious, or on edge: 3 = Nearly every day Not being able to stop or control worryin = Nearly every day Worrying too much about different things: 3 = Nearly every day Trouble relaxin = Nearly every day Being so restless that it is hard to sit still: 2 = More than half the days Becoming easily annoyed or irritable: 1 = Several days Feeling afraid as if something awful might happen: 2 = More than half the days Total PASHA-7 score (0-4 normal; 5-9 mild; 10-14 moderate; 15-21 severe): 17 Source: Developed by Drs. Isai Motley, Deisy Choudhary, Troy Pastor and colleagues, with an educational regan from [employer]. HPI HPI Chief Complaint: EDITH MARMOLEJO PT- [facility] SENT Details: KRISTEN CHRISTY, is a 29 F who presents to the office today to establish care. Also has some concerns. Has not had a visit in about 8 years. Concerned about her family history of diabetes, father with diabetes, hypertension and a stroke and mother with a history of borderline diabetes. She is currently at a BMI of 38.9. She states that she recently started making dietary changes following her 's recent diagnosis of diabetes. Last Pap smear was about 8 years ago. No tobacco or alcohol abuse. No family history of co (more content not included)... Normal [facility] LDL calc ser/plasOrdered By: Grupo Zavala on 10-19-2024 Cholesterol in LDL [Mass/Vol] 123 mg/dL [facility] Comment on above: Xnerlobpiy=462-282 m g/dL & Higher Pudr=415 mg/dL or greater Laboratory - Chemistry and C hemistry - challengeOrdered By: Grupo Zavala on 10-19-2024 AST [Catalytic activity/Vol] 18 U/L <32 [facility] MCV (mean corpuscular volume ) determinationOrdered By: Grupo Zavala on 10-19-2024 MCV (RBC) [Entitic vol] 83.8 fL 81-[address] [facility] Mean corpuscular hemoglobin (MCH) determinationOrdered By: Grupo Zavala on 10-19-2024 MCH (RBC) [Entitic mass] 26.3 pg Low 27.0-32.0 [facility] Mean corpuscular hemoglobin concentration (MCHC) determinationOrdered By: Grupo Zavala on 10-19-2024 MCHC (RBC) [Mass/Vol] 31.4 g/dL Low 32-36 [facility] Mean platelet volume determi nationOrdered By: Grupo Zavala on 10-19-2024 Platelet mean volume (Bld) [Entitic vol] 10.7 fL 6.2-12.0 [facility] Monocyte percentageOrdered B y: Grupo Zavala on 10-19-2024 Monocytes/100 WBC (Bld) 5.3 % 0-[address] [facility] Neutrophil percentageOrdered By: Grupo Zavala on 10-19-2024 Neutrophils/100 WBC (Bld) 66.4 % 47-70 [facility] Nucleated red blood cell per centageOrdered By: Grupo Zavala on 10-19-2024 Nucleated RBC/100 WBC (Bld) [Ratio] 0 % 0-5 [facility] Platelet countOrdered By: Jc Zavala on 10-19-2024 Platelets (Bld) [#/Vol] 454 10*3/uL High 150-450 [facility] Potassium measurement (mass/ volume)Ordered By: Grupo Zavala on 10-19-2024 Potassium (Unsp spec) [Mass/Vol] 4.7 mmol/L 3.3-5.1 [facility] RBC Auto (Bld) [#/Vol]Ordere d By: Grupo Zavala on 10-19-2024 RBC (Bld) [#/Vol] 4.82 10*6/uL 4.2-5.4 [facility] Screening total cholesterol/ high density lipoprotein (HDL) cholesterol ratioOrdered By: Grupo Zavala on 10-19-2024 Cholesterol.total/Choles terol in HDL [Mass ratio] 4.90 {ratio} [facility] Serum creatinine measurement (mass/volume)Ordered By: Grupo Zavala on 10-19-2024 Creatinine [Mass/Vol] 0.74 mg/dL 0.70-1.20 [facility] Serum globulin measurementOr dered By: Grupo Zavala on 10-19-2024 Globulin (S) [Mass/Vol] 3.2 g/dL 2.2-4.2 [facility] Serum glucose measurement (m ass/volume)Ordered By: Grupo Zavala on 10-19-2024 Glucose [Mass/Vol] 92 mg/dL 70-99 [facility] Serum or plasma alanine landers otransferase (ALT) measurementOrdered By: Grupo Zavala on 10-19-2024 ALT [Catalytic activity/Vol] 25 U/L <35 [facility] Serum or plasma albumin nicole urement (mass/volume)Ordered By: Grupo Zavala on 10-19-2024 Albumin [Mass/Vol] 4.0 g/dL 3.5-5.0 [facility] Serum or plasma albumin/glob ulin mass ratioOrdered By: Grupo Zavala on 10-19-2024 Albumin/Globulin [Mass ratio] 1.2 {ratio} 0.9-2.4 [facility] Serum or plasma alkaline connor sphatase measurementOrdered By: Grupo Zavala 10-19-2024 ALP [Catalytic activity/Vol] 82 U/L 35-104 [facility] Serum or plasma calcium nicole urement (mass/volume)Ordered By: Grupo Zavala on 10-19-2024 Calcium [Mass/Vol] 9.0 mg/dL 7.6-11.0 [facility] Serum or plasma cholesterol in HDL measurement (mass/volume)Ordered By: Grupo Zavala on 10-19-2024 Cholesterol in HDL [Mass/Vol] 36 mg/dL Low >40 [facility] Comment on above: National Cholesterol Education Program (NCEP) guidelines:<40 mg/dL: Low HDL-cholesterol (major risk factor for CHD)>= 60 mg/dL: High HDL-cholesterol (negative risk factor for CHD)HDL-cholesterol is affected by a number of factors, e.g. smoking, exercise, hormones, sex and age. Serum or plasma cholesterol measurement (mass/volume)Ordered By: Grupo Zavala on 10-19-2024 Cholesterol [Mass/Vol] 176 mg/dL <201 [facility] Comment on above: Cholesterol level, D esirable <200 mg/dLBorderline high cholesterol 200-239 mg/dLHigh cholesterol >=240 mg/dLRecommendations of the NCEP Adult Treatment Panel for the following risk-cutoff thresholds for the [place] population. Serum or plasma urea nitroge n measurement (mass/volume)Ordered By: Grupo Zavala on 10-19-2024 Urea nitrogen [Mass/Vol] 11 mg/dL 4-19 [facility] Sodium levelOrdered By: Magdalena tomkelli Lucas on 10-19-2024 Sodium [Moles/Vol] 139 mmol/L 133-145 [facility] T4 freeOrdered By: Grupo Zavala on 10-19-2024 Free T4 [Mass/Vol] 1.00 ng/dL 0.76-1.46 [facility] TSH DL <= 0.005 mIU/L QnOrde red By: Grupo Zavala on 10-19-2024 TSH Qn 3.280 uIU/mL 0.300-4.200 [facility] Total proteinOrdered By: Dhruv caitlinnereida Zavala on 10-19-2024 Protein [Mass/Vol] 7.2 g/dL 5.9-8.4 [facility] Triglycerides measurementOrd ered By: Grupo Zavala on 10-19-2024 Triglyceride [Mass/Vol] 85 mg/dL <[address] [facility] Comment on above: The drugs N-Acetylcy steine and Metamizole may falsely depress this assay. Normal range: <150 mg/dLBorderline High: 150-199 mg/dLHigh: 200-499 mg/dLVery High: >500 mg/dL Vitamin B12 ser/plasOrdered By: Grupo Zavala on 10-19-2024 Cobalamin (Vitamin B12) [Mass/Vol] 271 pg/mL 180-914 [facility] White blood cell (WBC) count Ordered By: Grupo Zavaal on 10-19-2024 WBC (Bld) [#/Vol] 9.8 10*3/uL 4.4-11.0 [facility] Urgent Care Visit Reporton 0 08-14-2024 Urgent Care Visit Report [facility] [address], [address] [place] [address] OFFICE VISIT Date of Service: 08/14/24 MR#: [id number] Acct: [id number] Name: KRISTEN CHRISTY Lora Rep #: [id number] : 1995 Provider: MANUEL Griffith Age/Sex: 28/F Location: [facility] Status: Signed Intake Vital Signs 05/18/24 11:56 08/14/24 11:09 Height 5 ft 8 in Weight: 235 lb 2 oz BMI 35.7 BP 122/80 H 112/80 Blood Pressure Location Lt brachial Position Sitting Sitting Respiration 15 Pulse 108 H 67 Pulse Source NIBP Temp 97.7 F L 98.0 F Temp Source Oral Pulse Oximetry (%) 98 97 Oxygen Delivery Method room air room air Intake Visit Reasons: BILAT EAR PAIN/ST/COUGH Chief Complaint: ears plugged, ST, cough, fever [place] Required: No Is patient in pain?: No Allergies metoclopramide (From Reglan) Adverse Reaction (Mild, Verified 08/14/24 11:09) RESTLESS, ITCHING, FLUSHING Food Allergies: Uncoded Adverse Reaction (Verified 08/14/24 11:09) Vomiting Penicillins Adverse Reaction (Verified 08/14/24 11:09) Vomiting Medications ???Medication ???Instructions ???Recorded ???Confirmed ???Type ipratropium bromide 21 mcg (0.03 2 spray intranasal BID-TID PRN 03/3008/14/24 Rx %) nasal spray postnasal drainage #30 mL sulfamethoxazole 800 1 tab PO Q12H 7 days #14 tabs 08/0408/14/24 Rx mg-trimethoprim 160 mg tablet (Bactrim DS) Is last menstrual period known: No Post menopausal: No Patient : No Have you fallen in the past year?: No Nurse's Note: ears plugged, ST, cough, fever x 6 days without resolve. PFS Medical History Right ankle sprain Acute pharyngitis, unspecified URI (upper respiratory infection) UTI (urinary tract infection) Pulmonary embolism Surgical History History of 2 sections Family History Father Diabetes Hypertension Other Arthritis Fibromyalgia Social History Smoking Status: Never smoker alcohol intake: never substance use type: does not use caffeine: Yes what type of physical activity do you participate in: none seatbelt use: always do you feel safe at home: Yes additional social history: German jean-baptiste Patient is stay at home mom HPI HPI Chief Complaint: ears plugged, ST, cough, fever Details: KRISTEN CHRISTY, is a 28 F who presents to the office today for complaint of sore throat, cough and sinus congestion/pressure and pain. Patient denies fever, chills, sweats. No nausea, vomiting or diarrhea. She states there has been no improvement over the past 7 days. No other associated symptoms or alleviating/aggravat ing factors. ROS Const Constitutional: No other (As above) Exam Const General: cooperative and healthy appearing HENMT Head: normal to inspection Ears: hearing grossly normal bilaterally, TM's normal bilaterally and EAC's normal Nose: nasal discharge purulent Face and sinus: sinus tenderness frontal and maxillary Mouth: oral mucosae normal Throat: abnormal tonsil bilaterally erythema and hypertrophy 1+ and postnasal drainage Resp Effort Inspection: normal respiratory effort Auscultation: Bilateral: Clear to Auscultation Cardio Palpation: normal PMI Rate: regular rate Rhythm: regular rhythm Neuro General: patient alert and CN's II-XI intact bilaterally Psych Appearance: grossly normal Mental Status: mental status grossly normal Coding Level of Care Code Off vis,est,level 3 Diagnoses Acute sinusitis J01.90 Assessment and Plan Assessment and Plan (1) Acute sinusitis: Status: Acute Plan: Bactrim and Atrovent as prescribed today. Encouraged to get plenty of rest, drink lots of clear liquids, and use Tylenol or Ibuprofen (unless contraindicated) for fever and comfort. Patient also educated on other symptomatic management techniques. To be seen in 7-10 days if no improvement; sooner if worsening of symptoms. Patient advised of potential red flags and when appropriate to report to the ED. Patient verbalized understanding and agreement with all the above. Medications: New sulfamethoxazole-tri methoprim 800-160 mg (Bactrim DS) 1 TAB PO Q12H 14 tabs 0RF 7 days ipratropium bromide administer into each nostril 2 sprays intranasal BID-TID PRN 30 mL 0RF postnasal drainage Clinical Quality Measures Falls Risk Screening/Assistive Devices Have you fallen in the past year?: No 08/14/24 1124 Date Nathan Carrera Signature: Date (if applicable) CC: Normal [facility] Urgent Care Visit Reporton 0 05-18-2024 Urgent Care Visit Report [facility] [address], [address] [place] [address] OFFICE VISIT Date of Service: 05/18/24 MR#: [id number] Acct: [id number] Name: KRISTEN CHRISTY Rep #: [id number] : 1995 Provider: MANUEL Fernando Age/Sex: 28/F Location: [facility] Status: Signed Intake Vital Signs 04/28/24 09:10 05/18/24 11:56 Height 5 ft 8 in 5 ft 8 in Weight: 250 lb 4 oz 235 lb 2 oz BMI 38.0 35.7 BP 120/60 122/80 H Position Sitting Sitting Pulse 95 108 H Temp 98.2 F 97.7 F L Temp Source Oral Pulse Oximetry (%) 98 98 Oxygen Delivery Method room air room air Intake Visit Reasons: 2ND VISIT/BILAT EAR PAIN/ST Accompanied by: Self Allergies metoclopramide (From Reglan) Adverse Reaction (Mild, Verified 05/18/24 11:56) RESTLESS, ITCHING, FLUSHING Food Allergies: Uncoded Adverse Reaction (Verified 05/18/24 11:56) Vomiting Penicillins Adverse Reaction (Verified 05/18/24 11:56) Vomiting Medications ???Medication ???Instructions ???Recorded ???Confirmed ???Type pseudoephedrine 60 mg-DM 15 1 tab PO Q4-6H PRN cold symptoms 04/28/24 05/18/24 Rx mg-guaifenesin 400 mg tablet #20 tabs (Capmist DM) levofloxacin 500 mg tablet 500 mg PO Q24H #10 tabs 05/18/24 05/18/24 Rx Nurse's Note: Patient has Bilateral ear pain that has been going on since . Patient was seen here on [facility] and given a AB. Patient also c/o sore throat that has been going on for 2 days. [facility] Medical History (Updated 04/28/24 @ 09:23 by Nathan JACKSON, PA) Right ankle sprain Acute pharyngitis, unspecified URI (upper respiratory infection) UTI (urinary tract infection) Pulmonary embolism Surgical History History of 2 sections Family History Father Diabetes Hypertension Other Arthritis Fibromyalgia Social History Smoking Status: Never smoker alcohol intake: never substance use type: does not use caffeine: Yes what type of physical activity do you participate in: none seatbelt use: always do you feel safe at home: Yes additional social history: German jean-baptiste Patient is stay at home mom HPI HPI Details: KRISTEN CHRISTY, is a 28 F who presents to the office today for [facility] for approximately 3-4 week history of progressively worsening forehead pressure/congestion with headache and bilateral ear pressure and irritated throat, noting previous evaluated for same symptoms on 04/28/2024 with cefdinir and Capmist DM with trace improvement for 2 to 3 days then recurring/worsening symptoms ever since. No complaints of fever, chills, myalgias, fatigue, runny nose, or nausea/vomiting/diar sadie. No complaints of chest pain/shortness of breath/dyspnea on exertion. Non-smoker. No close contacts with similar complaints. No other associated symptoms and no other alleviating/aggravat ing factors. ROS Const Constitutional: No other (as above) Exam Const General: cooperative, healthy appearing and no acute distress Nutritional Appearance: average body habitus Orientation: alert, awake and oriented x3 HENMT Head: normal to inspection Ears: hearing grossly normal bilaterally, external ears normal, TM's normal bilaterally and EAC's normal Nose: external nose normal, nares normal, septum normal and no nasal discharge Face and sinus: normal facial exam, sinuses tender (bilateral frontal) and face symmetric Mouth: oral mucosae normal, lip normal, tongue normal and oropharynx normal Throat: posterior oropharynx normal, tonsils trace erythema without exudate or hypertrophy, uvula midline and no postnasal drainage Eyes General: appearance normal, both eyes and all related structures Neck Neck: normal visual inspection, full ROM, no meningeal signs, supple and lymphadenopathy (Bilateral anterior cervical lymph node swelling/tender to palpation) Neck mass: No Thyroid: thyroid normal Chest Chest palpation inspection: normal inspection of the chest Resp Effort Inspection: normal respiratory effort and able to speak in complete sentences Auscultation: Bilateral: Clear to Auscultation Cardio Palpation: normal PMI Rate: Tachycardic Rhythm: regular rhythm Heart Sounds: S1 normal, S2 normal, no gallops, no murmurs and no rubs Pulses: radial pulses present GI Inspection: normal to inspection Skin General: no rashes or lesions noted Neuro General: patient alert, patient awake and patient oriented x3 Cognition: normal cognition Speech: speech normal Psych Appearance: grossly normal Mental Status: mental status grossly normal Mood: congruent mood Affect: normal affect Speech and Movement: speech and movement norm (more content not included)... Normal [facility] Urgent Care Visit Reporton 1 06-29-2023 Urgent Care Visit Report [facility] [address], [address] [place] [address] OFFICE VISIT Date of Service: 04/28/24 MR#: [id number] Acct: [id number] Name: KRISTEN CHRISTY Rep #: [id number] : 1995 Provider: MANUEL Griffith Age/Sex: 28/F Location: [facility] Status: Signed Intake Vital Signs 07/21/22 12:12 04/28/24 09:10 Height 5 ft 8 in 5 ft 8 in Weight: 250 lb 4 oz BMI 38.0 BP 120/60 Position Sitting Pulse 95 Temp 98.2 F Temp Source Oral Pulse Oximetry (%) 98 Oxygen Delivery Method room air Intake Visit Reasons: BILAT EAR COMPLAINT Accompanied by: Other Family Allergies metoclopramide (From Reglan) Adverse Reaction (Mild, Verified 04/28/24 09:10) RESTLESS, ITCHING, FLUSHING Food Allergies: Uncoded Adverse Reaction (Verified 04/28/24 09:10) Vomiting Penicillins Adverse Reaction (Verified 04/28/24 09:10) Vomiting Medications ???Medication ???Instructions ???Recorded ???Confirmed ???Type cefdinir 300 mg capsule 300 mg PO BID 10 days #20 caps 04/28/24 04/28/24 Rx pseudoephedrine 60 mg-DM 15 1 tab PO Q4-6H PRN cold symptoms 04/28/24 04/28/24 Rx mg-guaifenesin 400 mg tablet #20 tabs (Capmist DM) Nurse's Note: Patient has had bilateral ear pain for 3-4 days [facility] Medical History (Updated 04/28/24 @ 09:23 by Nathan JACKSON PA) Right ankle sprain Acute pharyngitis, unspecified URI (upper respiratory infection) UTI (urinary tract infection) Pulmonary embolism Surgical History History of 2 sections Family History Father Diabetes Hypertension Other Arthritis Fibromyalgia Social History Smoking Status: Never smoker alcohol intake: never substance use type: does not use caffeine: Yes what type of physical activity do you participate in: none seatbelt use: always do you feel safe at home: Yes additional social history: Xraooo-[id number]-Ocrtn lex Patient is stay at home mom HPI HPI Details: KRISTEN CHRISTY, is a 28 F who presents to the office today for complaint of bilateral ear pressure and pain. Patient states that her pain in the ears worsened today but has been present for the past week or so. She denies otorrhea or complete hearing loss. No fever, chills, sweats. No nausea, vomiting or diarrhea. No hemoptysis, shortness of breath or difficulty breathing. No other associated symptoms or alleviating/aggravat ing factors. ROS Const Constitutional: No other (As above) Exam Const General: cooperative and well developed HENMT Head: normal to inspection and atraumatic Ears: hearing grossly normal bilaterally and TM abnormal bulging bilaterally, erythematous bilaterally and with fluid behind the TM bilaterally Nose: nasal discharge clear Face and sinus: normal facial exam Mouth: oral mucosae normal Throat: abnormal tonsil bilaterally hypertrophy 1+ Resp Effort Inspection: normal respiratory effort and no audible wheezes Auscultation: Bilateral: Clear to Auscultation Cardio Palpation: normal PMI Rate: regular rate Rhythm: regular rhythm Neuro General: patient alert and CN's II-XI intact bilaterally Psych Appearance: grossly normal Mental Status: mental status grossly normal Coding Level of Care Code Off vis,est,level 3 Diagnoses Dysfunction of both eustachian tubes H69.93 Bilateral acute otitis media H66.93 Assessment and Plan Assessment and Plan (1) Dysfunction of both eustachian tubes: Status: Acute (2) Bilateral acute otitis media: Status: Acute Medications: New cefdinir 300 mg PO BID 10 days 20 caps 0RF [id number] uaifenesin 60-15-400 mg (Capmist DM) do not exceed 4 doses per 24 hrs 1 TAB PO Q4-6H PRN 20 tabs 0RF cold symptoms Plan Cefdinir as prescribed today. Encouraged to get plenty of rest, drink lots of clear liquids, and use Tylenol or Ibuprofen (unless contraindicated) for fever and comfort. Patient also educated on other symptomatic management techniques. To be seen in 7-10 days if no improvement; sooner if worsening of symptoms. Patient advised of potential red flags and when appropriate to report to the ED. Patient verbalized understanding and agreement with all the above. 04/28/24923 Date Nathan Carrera Signature: Date (if applicable) CC: Normal [facility] Culture, urineOrdered By: Dr Yamileth Smith on 05-22-2022 Bacteria identified Cx Nom (U) Mixed Gram Pos & Gram Neg Org [facility] Culture, urineOrdered By: Jamie Ferrer on 05-21-2022 Bacteria identified Cx Nom (U) Positive [facility] Absolute lymphocyte countOrd ered By: Dr. Smith on 05-20-2022 Lymphocytes Auto (Unsp spec) [#/Vol] 2.98 10*3/uL 0.83-4.51 [facility] Basophil percentageOrdered B y: Dr. Smith on 05-20-2022 Basophil percentage 10-25 SEEN /hpf 0-5 [facility] Basophils/100 WBC (Bld) 0.6 % 0-[address] [facility] Chloride [Moles/Vol] 106 mmol/L 98-107 [facility] Eosinophils/100 WBC (Bld) 2.2 % 0-5 [facility] Glucose [Mass/Vol] 120 mg/dL 74-106 [facility] Comment on above: Fasting Glucose resu lt from 100 to 125 mg/dL suggests IMPAIRED HOMEOSTASIS per A.D.A. criteria. Neutrophils (Bld) [#/Vol] 6.5 10*3/uL 2.0-7.7 [facility] Neutrophils/100 WBC (Bld) 63.3 % 47-70 [facility] Potassium [Moles/Vol] 3.8 mmol/L 3.5-5.1 [facility] Sodium [Moles/Vol] 140 mmol/L 136-145 [facility] WBC (Bld) [#/Vol] 10.2 10*3/uL 4.4-11.0 [facility] Beta hCG serum qualOrdered B y: Dr. Smith on 05-20-2022 Beta HCG ( test) Ql Negative [facility] Bilirubin Test strip Ql (U)O rdered By: Dr. Smith on 05-20-2022 Bilirubin Ql (U) 3 mg/dL Negative [facility] Comment on above: COLOR OF URINE MAY A FFECT DIPSTICK RESULTS. Blood erythrocytes count (nu mber/volume)Ordered By: Dr. Smith on 05-20-2022 RBC (Bld) [#/Vol] 4.58 10*6/uL 4.2-5.4 [facility] Blood hemoglobin measurement (mass/volume)Ordered By: Dr. Smith on 05-20-2022 Hemoglobin (Bld) [Mass/Vol] 13.0 g/dL 12.0-15.0 [facility] Blood lymphocytes/100 leukoc ytesOrdered By: Dr. Smith on 05-20-2022 Lymphocytes/100 WBC (Bld) 29.1 % 19-41 [facility] Blood monocytes/100 leukocyt esOrdered By: Dr. Smith on 05-20-2022 Monocytes/100 WBC (Bld) 4.5 % 0-[address] [facility] Blood platelet mean volumeOr dered By: Dr. Smith on 05-20-2022 Platelet mean volume (Bld) [Entitic vol] 10.2 fL 6.2-12.0 [facility] Determination of erythrocyte mean corpuscular volume (MCV)Ordered By: Dr. Smith on 05-20-2022 MCV (RBC) [Entitic vol] 85.8 fL 81-[address] [facility] Hematocrit Auto (Bld) [Volum e fraction]Ordered By: Dr. Smith on 05-20-2022 Hematocrit (Bld) [Volume fraction] 39.3 % 37-47 [facility] Ketones Test strip Ql (U)Ord ered By: Dr. Smith on 05-20-2022 Ketones Ql (U) 5 mg/dl Negative [facility] Laboratory - Chemistry and C hemistry - challengeOrdered By: Dr. Smith on 05-20-2022 CO2 [Moles/Vol] 24.0 mmol/L 21.0-32.0 [facility] Urea nitrogen/Creatinine [Mass ratio] 17.0 mg/mg 10-20 [facility] - Hematology and Cell countsOrdered By: Dr. Smith on 05-20-2022 Erythrocyte distribution width (RBC) [Entitic vol] 41.0 fL 35.1-43.9 [facility] Erythrocyte distribution width (RBC) [Ratio] 13.2 % 11.6-14.6 [facility] Immature granulocytes/100 WBC (Bld) 0.300 % 0.0-0.9 [facility] Comment on above: IG% - Immature Granu locytes (promyelocytes, myelocytes and metamyelocytes) > 1% indicates that a LEFT SHIFT is Present. MCH (RBC) [Entitic mass] 28.4 pg 27.0-32.0 [facility] Nucleated RBC/100 WBC (Bld) [Ratio] 0 % 0-5 [facility] MCHC Auto (RBC) [Mass/Vol]Or dered By: Dr. Smith on 05-20-2022 MCHC (RBC) [Mass/Vol] 33.1 g/dL 32-36 [facility] Mucus LM Ql (Urine sed)Order ed By: Dr. Smith on 05-20-2022 Mucus Ql (Urine sed) 0 SEEN /hpf [facility] Nitrite Test strip Ql (U)Ord ered By: Dr. Smith on 05-20-2022 Nitrite Ql (U) Positive Negative [facility] No Panel InformationOrdered By: Dr. Smith on 05-20-2022 Estimated Creatinine Clearance Calc 96.87 ml/min [facility] Estimated GFR (MDRD) Amer 98 mL/min >60 [facility] Comment on above: GFR Calc Estimated GFR (MDRD) Non-Af Amer 81 mL/min >60 [facility] Comment on above: Non- GFR Calc Platelets bldOrdered By: Dr. Smith on 05-20-2022 Platelets (Bld) [#/Vol] 379 10*3/uL 150-450 [facility] Protein Test strip Ql (U)Ord ered By: Dr. Smith on 05-20-2022 Protein Ql (U) 15 mg/dl Negative [facility] Serum or plasma calcium nicole urement (mass/volume)Ordered By: Dr. Smith on 05-20-2022 Calcium [Mass/Vol] 8.7 mg/dL 8.5-10.1 [facility] Serum or plasma creatinine m easurement (mass/volume)Ordered By: Dr. Smith on 05-20-2022 Creatinine [Mass/Vol] 0.88 mg/dL 0.55-1.02 [facility] Comment on above: The validity of the calculated GFR & GFRAA in patients over 70 years has not been determined. Clinical correlation is essential. Serum or plasma urea nitroge n measurement (mass/volume)Ordered By: Dr. Smith on 05-20-2022 Urea nitrogen [Mass/Vol] 15 mg/dL 7-18 [facility] Squamous epithelial cells de tection in urine sediment by light microscopyOrdered By: Dr. Smith on 05-20-2022 Epithelial cells.squamous LM Ql (Urine sed) 5-10 SEEN /hpf 5-10 [facility] Thin prep Papanicolaou smear with manual screeningOrdered By: Dr. Smith on 05-20-2022 Thin prep Papanicolaou smear with manual screening 10 5-15 [facility] Urine blood detectionOrdered By: Dr. Smith on 05-20-2022 RBC Ql (U) Negative Negative [facility] RBC Ql (U) 0 SEEN /hpf 0-5 [facility] Urine clarityOrdered By: Dr. Smith on 05-20-2022 Clarity (U) Sl. Cloudy Clear [facility] Urine color determinationOrd ered By: Dr. Smith on 05-20-2022 Color (U) Roselia Yellow [facility] Urine glucose detectionOrder ed By: Dr. Smith on 05-20-2022 Glucose Ql (U) Normal mg/dl Normal [facility] Urine leukocyte esterase det ection by dipstickOrdered By: Dr. Smith on 05-20-2022 Leukocyte esterase Test strip Ql (U) 500 /ul Negative [facility] Urine pHOrdered By: Dr. Michel clifford on 05-20-2022 pH (U) 6.0 [pH] 5.0 - 8.0 [facility] Urine sediment bacteria coun t by microscopy (number/high power field)Ordered By: Dr. Smith on 05-20-2022 Bacteria LM.HPF (Urine sed) [#/Area] 1 /[HPF] None Seen [facility] Urine specific gravity measu rementOrdered By: Dr. Smith on 05-20-2022 Specific gravity (U) [Rel density] 1.025 1.002-1.030 [facility] Urobilinogen Auto test strip Ql (U)Ordered By: Dr. Smith on 05-20-2022 Urobilinogen Ql (U) 4 mg/dl Normal [facility] Basophil percentageOrdered B y: Nathan Ferrer on 05-19-2022 Basophil percentage 10-25 SEEN /hpf 0-5 [facility] Bilirubin Test strip Ql (U)O rdered By: Nathan Ferrer on 05-19-2022 Bilirubin Ql (U) Negative Negative [facility] Ketones Test strip Ql (U)Ord ered By: Nathan Ferrer on 05-19-2022 Ketones Ql (U) Negative Negative [facility] Laboratory - Chemistry and C hemistry - challengeon 05-19-2022 Bilirubin Ql (U) Negative [facility] Glucose Ql (U) Negative [facility] HCG ( test) Ql (U) Negative [facility] Ketones Ql (U) Negative [facility] pH (U) 7.5 [pH] [facility] Specific gravity (U) [Rel density] 1.005 [facility] Urobilinogen (U) [Mass/Vol] Negative [facility] - Hematology and Cell countson 05-19-2022 Hemoglobin Ql (U) Negative [facility] - Specimen inform ationon 05-19-2022 Clarity (U) Clear [facility] Color (U) YELLOW [facility] - Urinalysison Nitrite Ql (U) Negative [facility] Protein Ql (U) Negative [facility] Mucus LM Ql (Urine sed)Order ed By: Nathan Ferrer on 05-19-2022 Mucus Ql (Urine sed) 0 SEEN /hpf [facility] Nitrite Test strip Ql (U)Ord ered By: Nathan Ferrer on 05-19-2022 Nitrite Ql (U) Negative Negative [facility] No Panel Informationon 05-19 Urine Leukocytes Positive [facility] Urine Non-Hemolyzed Blood Negative [facility] Protein Test strip Ql (U)Ord ered By: Nathan Ferrer on 05-19-2022 Protein Ql (U) Negative Negative [facility] Squamous epithelial cells de tection in urine sediment by light microscopyOrdered By: Nathan Ferrer on 05-19-2022 Epithelial cells.squamous LM Ql (Urine sed) 5-10 SEEN /hpf 5-10 [facility] Urine blood detectionOrdered By: Nathan Ferrer on 05-19-2022 RBC Ql (U) Negative Negative [facility] RBC Ql (U) 0 SEEN /hpf 0-5 [facility] Urine clarityOrdered By: Abbe Ferrer on 05-19-2022 Clarity (U) Sl. Cloudy Clear [facility] Urine color determinationOrd ered By: Nathan Ferrer on 05-19-2022 Color (U) Yellow Yellow [facility] Urine glucose detectionOrder ed By: Nathan Ferrer on 05-19-2022 Glucose Ql (U) Normal mg/dl Normal [facility] Urine leukocyte esterase det ection by dipstickOrdered By: Nathan Ferrer on 05-19-2022 Leukocyte esterase Test strip Ql (U) 500 /ul Negative [facility] Urine pHOrdered By: Nathan crocker on 05-19-2022 pH (U) 8.0 [pH] 5.0 - 8.0 [facility] Urine sediment bacteria coun t by microscopy (number/high power field)Ordered By: Nathan Ferrer on 05-19-2022 Bacteria LM.HPF (Urine sed) [#/Area] 0 /[HPF] None Seen [facility] Urine specific gravity measu rementOrdered By: Nathan Ferrer on 05-19-2022 Specific gravity (U) [Rel density] 1.010 1.002-1.030 [facility] Urobilinogen Auto test strip Ql (U)Ordered By: Nathan Ferrer on 05-19-2022 Urobilinogen Ql (U) Normal mg/dl Normal [facility] - Chemistry and C hemistry - challengeon 05-12-2022 Bilirubin Ql (U) Negative [facility] Glucose Ql (U) Negative [facility] Ketones Ql (U) Trace (5) [facility] pH (U) 7.5 [pH] [facility] Specific gravity (U) [Rel density] 1.005 [facility] Urobilinogen (U) [Mass/Vol] Negative [facility] - Hematology and Cell countson 05-12-2022 Hemoglobin Ql (U) Trace [facility] - Specimen inform ationon 05-12-2022 Clarity (U) Cloudy [facility] Color (U) STRAW [facility] - Urinalysison Nitrite Ql (U) Negative [facility] Protein Ql (U) Negative [facility] No Panel Informationon 05-12 Urine Leukocytes Positive [facility] Urine Non-Hemolyzed Blood Non-Hemolyzed [facility] - Microbiology an d Antimicrobial susceptibilityon 03-21-2022 S. pyogenes Ag IA Ql (Unsp spec) Negative [facility] CNOVon 03-27-2019 CNOV Office Visit ([facility]STR) KRISTEN CHRISTY ([id number]) 1995 F Date Time Provider Department 03/27/19 3:45 PM DAVON MARIA (JOE) [facility] During your visit today, we recorded the following information about you: Temperature Pulse Respiration Blood pressure 98.6 degrees 78/minute 18/minute 110/76 Weight 103.4 kg Davon Maria APRN.CNP 03/27/2019 4:11 PM Signed Subjective HPI HPI Kristen Christy is a 23 year old female who presents today for CC of sore throat. This started 2 days ago. Has tried otc medication. Symptoms are worsened by nothign. Risk factors children with strep currently. .Patient presents with: Sore Throat: x 2 days, exposure PAST MEDICAL HISTORY Diagnosis Date - Depression - depression - Pulmonary embolism (HCC) 2012 on control PAST SURGICAL HISTORY Procedure Laterality Date - DELIVERY ONLY 11/30/14 , low transverse - DELIVERY ONLY 10/12/2016 ALLERGIES Penicillins MEDICATIONS copper (PARAGARD T 380A) 380 square mm intrauterine device INSERTED IN THE OFFICE meloxicam (MOBIC) 15 mg tablet Take 1 tablet by mouth once daily. for pain. Take with food. FAMILY HISTORY Problem Relation Age of Onset - Diabetes Father Type 2 - Hypertension Father - Arthritis Mother - Fibromyalgia Mother - other (Migraines) Mother - other (Depression) Mother - Arthritis Maternal Grandmother - Cancer Maternal Grandfather Lung - Hypertension Maternal Grandfather Both sides of family Social History Tobacco Use - Smoking status: Never Smoker - Smokeless tobacco: Never Used Substance Use Topics - Alcohol use: Yes Comment: rare - Drug use: No Review of Systems Constitutional: Negative for fever. HENT: Positive for congestion and sore throat. Negative for ear pain and nosebleeds. Respiratory: Negative for cough, shortness of breath and wheezing. Musculoskeletal: Negative for neck pain. Skin: Negative for itching and rash. Objective Blood pressure 110/76, pulse 78, temperature 37 ?C (98.6 ?F), temperature source Tympanic, resp. rate 18, weight 103.4 kg (228 lb). Physical Exam Constitutional: She is oriented to person, place, and time and well-developed, well-nourished, and in no distress. Non-toxic appearance. She does not have a sickly appearance. No distress. HENT: Head: Normocephalic and atraumatic. Right Ear: Hearing, tympanic membrane, external ear and ear canal normal. Left Ear: Hearing, tympanic membrane, external ear and ear canal normal. Nose: Nose normal. Mouth/Throat: Uvula is midline and mucous membranes are normal. Posterior oropharyngeal erythema present. No oropharyngeal exudate, posterior oropharyngeal edema or tonsillar abscesses. Eyes: Pupils are equal, round, and reactive to light. Conjunctivae and lids are normal. Right eye exhibits no discharge. Left eye exhibits no discharge. No scleral icterus. Neck: Trachea normal and normal range of motion. Neck supple. Cardiovascular: Normal rate, regular rhythm and normal heart sounds. Pulmonary/Chest: Effort normal and breath sounds normal. Lymphadenopathy: She has cervical adenopathy. Right cervical: Superficial cervical adenopathy present. Left cervical: Superficial cervical adenopathy present. Neurological: She is alert and oriented to person, place, and time. Skin: No rash noted. She is not diaphoretic. ASSESSMENT/PLAN: 1. Sore throat - ICD9: 462, ICD10: J02.9 - Rapid Strep negative in the office today and Throat culture pending - Discussed supportive care treatment with fluids, rest and analgesia. - The patient should follow up in 3-5 days if symptoms persist or worsen - Call back if drooling, increased temperature, symptoms of dehydration and/or still sick in one week - GROUP A STREPTOCOCCUS BY PCR - RAPID STREP TEST B/O Agrees to plan Davon Maria APRN.PROCUREMENT ANALYST Referring Provider: SELF [200] Allergies As of Date: 03/27/2019 Noted Allergy Reaction PENICILLINS 07/20/2013 11 - Vomiting Date Reviewed: 03/27/2019 Reviewed by: Romy Oliveira Ma - Fully Assessed Reason for Visit: Sore Throat [200] Cmt: x 2 days, exposure Primary Visit Diagnosis:Sore throat [J02.9] Order(s):GROUP A STREPTOCOCCUS BY PCR [SQGASPCR] Order #: [id number] RAPID STREP TEST B/O [7170935] Order #: [id number] Prescriptions as of 03/27/2019 Sig: COPPER 380 SQUARE MM INTRAUTE* INSERTED IN THE OFFICE MELOXICAM 15 MG TABLET Take 1 tablet by mouth once d* Patient not taking: Reported on 03/27/2019 Problem List As Of Date 03/27/2019 Noted Resolved Normal [Z34.90] 05/21/2014 10/21/2014 More... Rubella non-immune status, antepartum [O99.89, *05/24/2014 Nuchal fold thickening on prental ultrasound [O*08/04/2014 12/14/2014 Suspected anomaly, antepartum [O35.9XX0] 08/04/2014 12/14/2014 High-risk supervision [O09.90] 10/21/2014 12/14/2014 More... More... History of section [Z98.891] 04/11/2016 More... History of wound infection [Z86.19] 04/11/2016 More... History of depression [Z86.59] 04/11/2016 More... History of pulmonary embolism [Z86.711] 04/11/2016 More... Obesity in [O99.210] 04/11/2016 More... More... Encounter Status:Closed by DAVON MARIA CNP on 03/27/19 Normal [facility] Group A Strep by PCRon 03-27 GAS Specimen Source Throat Swab Normal [facility] Comment on above: Performed By: #### G ASPCR #### [facility] [address] [address] Group A Strep PCR Negative Normal [facility] Comment on above: Result Comment: This test was developed and its performance characteristics determined by [facility]ai [facility] [place] ([facility]). It has not been cleared or approved by the FDA. [facility] is regulated under CLIA as qualified to perform high complexity testing. This test is used for clinical purposes. It should not be regarded as investigational or for research. Performed By: #### G ASPCR #### [facility] [address] [id number] PROGRESSon 03-27-2019 PROGRESS HNO ID: [id number] Author: Davon (Joe) Service: ? Author Type: Nurse Practitioner Type: Progress Notes Filed: 03/27/2019 4:11 PM Note Text: Subjective HPI HPI Kristen Christy is a 23 year old female who presents today for CC of sore throat. This started 2 days ago. Has tried otc medication. Symptoms are worsened by nothign. Risk factors children with strep currently. .Patient presents with: Sore Throat: x 2 days, exposure PAST MEDICAL HISTORY Diagnosis Date - Depression - depression - Pulmonary embolism (HCC) 2012 on control PAST SURGICAL HISTORY Procedure Laterality Date - DELIVERY ONLY 11/30/14 , low transverse - DELIVERY ONLY 10/12/2016 ALLERGIES Penicillins MEDICATIONS copper (PARAGARD T 380A) 380 square mm intrauterine device INSERTED IN THE OFFICE meloxicam (MOBIC) 15 mg tablet Take 1 tablet by mouth once daily. for pain. Take with food. FAMILY HISTORY Problem Relation Age of Onset - Diabetes Father Type 2 - Hypertension Father - Arthritis Mother - Fibromyalgia Mother - other (Migraines) Mother - other (Depression) Mother - Arthritis Maternal Grandmother - Cancer Maternal Grandfather Lung - Hypertension Maternal Grandfather Both sides of family Social History Tobacco Use - Smoking status: Never Smoker - Smokeless tobacco: Never Used Substance Use Topics - Alcohol use: Yes Comment: rare - Drug use: No Review of Systems Constitutional: Negative for fever. HENT: Positive for congestion and sore throat. Negative for ear pain and nosebleeds. Respiratory: Negative for cough, shortness of breath and wheezing. Musculoskeletal: Negative for neck pain. Skin: Negative for itching and rash. Objective Blood pressure 110/76, pulse 78, temperature 37 ?C (98.6 ?F), temperature source Tympanic, resp. rate 18, weight 103.4 kg (228 lb). Physical Exam Constitutional: She is oriented to person, place, and time and well-developed, well-nourished, and in no distress. Non-toxic appearance. She does not have a sickly appearance. No distress. HENT: Head: Normocephalic and atraumatic. Right Ear: Hearing, tympanic membrane, external ear and ear canal normal. Left Ear: Hearing, tympanic membrane, external ear and ear canal normal. Nose: Nose normal. Mouth/Throat: Uvula is midline and mucous membranes are normal. Posterior oropharyngeal erythema present. No oropharyngeal exudate, posterior oropharyngeal edema or tonsillar abscesses. Eyes: Pupils are equal, round, and reactive to light. Conjunctivae and lids are normal. Right eye exhibits no discharge. Left eye exhibits no discharge. No scleral icterus. Neck: Trachea normal and normal range of motion. Neck supple. Cardiovascular: Normal rate, regular rhythm and normal heart sounds. Pulmonary/Chest: Effort normal and breath sounds normal. Lymphadenopathy: She has cervical adenopathy. Right cervical: Superficial cervical adenopathy present. Left cervical: Superficial cervical adenopathy present. Neurological: She is alert and oriented to person, place, and time. Skin: No rash noted. She is not diaphoretic. ASSESSMENT/PLAN: 1. Sore throat - ICD9: 462, ICD10: J02.9 - Rapid Strep negative in the office today and Throat culture pending - Discussed supportive care treatment with fluids, rest and analgesia. - The patient should follow up in 3-5 days if symptoms persist or worsen - Call back if drooling, increased temperature, symptoms of dehydration and/or still sick in one week - GROUP A STREPTOCOCCUS BY PCR - RAPID STREP TEST B/O Agrees to plan Davon Maria APRN.JOE Normal [facility] CNOVon 08-13-2018 CNOV Office Visit (INTMWS) KRISTEN CHRISTY ([id number]) 1995 F Date Time Provider Department 08/13/18 8:20 AM EUGENE QUINN ([facility]) IN[facility] During your visit today, we recorded the following information about you: Temperature Pulse Respiration Blood pressure 96.9 degrees 104/minute 16/minute 104/72 Weight Height Last Period 103.5 kg 1.721 m 07/30/18 Eugene Quinn APRN.JOE 08/13/2018 10:07 AM Signed HPI/CC: Kristen Christy is a 22 year old female accompanied by her father who presents for a well adult [facility]. New concerns today include Establish care and back pain. Personal hx of 2 C-sections. Post- depression and x2 PEs related to OCPs and . Back pain: Started ~2 months ago after falling on the ice in June. Worsening over the last 2 weeks. Sitting too long makes it worse. Tried stretching, ibuprofen and heating pad without significant improvement. Denies any numbness, tingling, weakness or bowel/bladder incontinence. Tends to skip breakfast, would skip lunch if she could. Needs reminded. Not hungry or focused on the kids. Eats a lot of carbs. Exercise walks regularly. Sleep 6-8 hours per night. REVIEW OF SYSTEMS: GENERAL: No fevers or chills. Weight is stable. Getting over sinus cold DERMATOLOGIC: Denies any new skin conditions, rashes or changing moles. EYES: Denies recent visual changes. and Last eye exam was February 2018, wears glasses/contacts ENT: Denies hearing loss or tinnitus RESPIRATORY: Denies any cough, dyspnea, or wheezing. CARDIOVASCULAR: Denies any chest pain with exertion or at rest, palpitations, syncope, or edema. BREASTS: Denies any breast lumps, tenderness, dimpling, skin changes, or nipple discharge. GASTROINTESTINAL: Denies any nausea, vomiting, abdominal pain, heartburn, changes in bowel habit, Denies any rectal bleeding. Last colonoscopy: N/A GENITOURINARY: Denies any urinary frequency, urgency, incontinence, dysuria. Denies vaginal odor, discharge or lesions. Denies irregular vaginal bleeding or spotting. Patient's last menstrual period was 07/30/2018 (approximate). BSE? yes DISTRICT RANGER: follows with , last visit ~1 month ago MUSCULOSKELETAL: Positive for back pain NEURO: Denies any headaches, tremors, dizziness, vertigo, memory loss, confusion., Denies weakness, numbness or tingling.. PSYCHIATRIC: Denies any sleeping problems, history of abuse, marital discord., Denies any anxiety or depression. HEMATOLOGIC/LYMPHATI C/IMMUNOLOGIC: Denies anemia, bruising, bleeding abnormalities. ENDOCRINE: Denies any heat or cold intolerance, polyuria or polydipsia. HISTORIES PAST MEDICAL HISTORY Diagnosis Date - Depression - depression - Pulmonary embolism (HCC) 2013 on control PAST SURGICAL HISTORY Procedure Laterality Date - DELIVERY ONLY 11/30/14 , low transverse - DELIVERY ONLY 10/12/2016 FAMILY HISTORY Problem Relation Age of Onset - Diabetes Father Type 2 - Arthritis Mother - other (Migraines) Mother - other (Depression) Mother - Arthritis Maternal Grandmother - Cancer Maternal Grandfather Lung - Hypertension Maternal Grandfather Both sides of family Social History Socioeconomic History Marital status: Single Spouse name: Not on file Number of children: 1 Years of education: 12 Highest education level: Not on file Social Needs Financial resource strain: Not on file Food insecurity - worry: Not on file Food insecurity - inability: Not on file Transportation needs - medical: Not on file Transportation needs - non-medical: Not on file Occupational History Occupation: homemaker Tobacco Use Smoking status: Never Smoker Smokeless tobacco: Never Used Substance and Sexual Activity Alcohol use: No Drug use: No Sexual activity: Yes Partners: Male Other Topics Concerns: Not on file Social History Narrative Not on file Current Outpatient Medications on File Prior to Visit: copper (PARAGARD T 380A) 380 square mm intrauterine device INSERTED IN THE OFFICE trimethoprim-polymyx in eye drops (POLYTRIM) ophthalmic solution Use 1 Drop in both eyes every 4 hours. (Patient not taking: Reported on 08/13/2018 ) ENOXAPARIN SODIUM (LOVENOX SUBCUTANEOUS) Inject subcutaneously. heparin 10,000 unit/mL injection Inject 1 mL subcutaneously every 12 hours. Insulin Syringes, Disposable, 1 mL syrg 2 Syringes once daily. with insulin needles Jaovorrc-Ev-Hnq-Fe-F A ( VITAMIN) tab Take 1 tablet by mouth. No current facility-administere d medications on file prior to visit. ALLERGIES Allergen Reactions - Penicillins Vomiting OBJECTIVE/PHYSICAL EXAMINATION: BP 104/72 Pulse 104 Temp 36.1 ?C (96.9 ?F) (Left Tympanic) Resp 16 Ht 172.1 cm (5' 7.75) Wt 103.5 kg (228 lb 1.9 oz) LMP 07/30/2018 (Approximate) ? No BMI 34.94 kg/m? General appearance: Well appearing, alert, in no acute distress, well-hydrated, well nourished. Skin: Skin color, texture, turgor normal, no suspicious rashes or lesions Head: Normocephalic, no masses, lesions, tenderness or abnormalities Eyes: Anicteric sclera. Pupils are equally round and reactive to light. Extraocular movements are intact. Wearing glasses Ears: External ears normal, canals clear, TM's normal Nose/Sinuses: Nares normal, septum midline, mucosa normal, no drainage or sinus tenderness Oropharynx: Lips, mucosa, and tongue normal, teeth and gums normal, oropharynx normal and Positive findings: tonsillar hypertrophy 2+ Neck: Positive findings: tonsillar adenopathy Back: slight dec extension, positive findings: tenderness at the level of T12/L1-2-3 and surrounding musculature. Negative sitting straight leg raise Lungs: Lungs clear to auscultation. No wheezing, rhonchi, rales Heart: tachycardia regular rythm without murmur, normal S1 and S2 Abdomen: Normal abdominal exam, Abdomen soft, non-tender. Bowel sounds normal. No masses, organomegaly Extremities: No deformities, edema, skin discoloration, clubbing or cyanosis. Good capillary refill. Peripheral pulses: Normal Neuro:Awake, alert and oriented x 3, Cranial nerves II-XII grossly intact and Normal gait ASSESSMENT/PLAN: 1. Well adult exam - ICD9: V70.0, ICD10: Z00.00 (primary diagnosis) - Encouraged monthly Breast Self Exam - Recommended regular aerobic exercise. - HPV vaccine discussed and recommended - pt will check w/insurance and her DISTRICT RANGER's office - Follow up for annual exam in one year. 2. Acute right-sided low back pain without sciatica - ICD9: 724.2, ICD10: M54.5 Lumbosacral sprain - Bedrest for 2-3 days - Ice for localized tenderness - Warm moist heat for 20 min three times a day - NSAIDS- see orders - Xrays- see orders - Follow up in 2 weeks or sooner if symptoms persist or worsen - XR LUMBAR GENERAL 3V AP/LAT/L5-S1 3. Fall, initial encounter - ICD9: E888.9, ICD10: W19.XXXA - XR LUMBAR GENERAL 3V AP/LAT/L5-S1 Prescription instructions reviewed with patient as applicable. Potential red flag symptoms discussed with the patient. Reviewed appropriate action plan to take if red flag symptoms occur. Patient agreeable to treatment plan. Eugene Quinn APRN.PROCUREMENT ANALYST Referring Provider: SELF [200] Allergies As of Date: 08/13/2018 Noted Allergy Reaction PENICILLINS 07/20/2013 11 - Vomiting Date Reviewed: 08/13/2018 Reviewed by: Rachel Greer Ma - Fully Assessed Reason for Visit: Physical [83] Cmt: will be establishing care with Young Reason For Visit History Recorded Primary Visit Diagnosis:Well adult exam [Z00.00] Other Visit Diagnoses:Acute right-sided low back pain without sciatica [M54.5] Fall, initial encounter [W19.XXXA] Order(s):meloxicam (MOBIC) 15 mg tabletTake 1 tablet by mouth once daily. for pain. Take with food.Disp: 24 tabletRfl: 0 XR LUMBAR GENERAL 3V AP/LAT/L5-S1 [[id number]] Order #: [id number] FUTURE Prescriptions as of 08/13/2018 Sig: COPPER 380 SQUARE MM INTRAUTE* INSERTED IN THE OFFICE MELOXICAM 15 MG TABLET Take 1 tablet by mouth once d* Medication notes this encounter COPPER 380 SQUARE MM INTRAUTERINE DEVICE >> Rachel Greer Ma 08/13/2018 8:23 AM >> BALBINA BYERS RACHEL SatAug 13, 2018 8:23 AM Problem List As Of Date 08/13/2018 Noted Resolved Normal [Z34.90] INVALID FOR*10/21/2014 More... Rubella non-immune status, antepartum [O99.89, *INVALID FOR* Nuchal fold thickening on prental ultrasound [O*INVALID FOR*12/14/2014 Suspected anomaly, antepartum [O35.9XX0] INVALID FOR*12/14/2014 High-risk supervision [O09.90] INVALID FOR*12/14/2014 More... More... History of section [Z98.891] INVALID FOR* More... History of wound infection [Z86.19] INVALID FOR* More... History of depression [Z86.59] INVALID FOR* More... History of pulmonary embolism [Z86.711] INVALID FOR* More... Obesity in [O99.210] INVALID FOR* More... More... Prescriptions ordered this encounter Disp Refills Start End MELOXICAM 15 MG TABLET 24 t* 0 08/13/2018 Route: ORAL Sig: Take 1 tablet by mouth once daily. for pain. Take with food. Medications Discontinued During This Encounter trimethoprim-polymyx in eye drops (PO* 1 Arya* 0 04/18/2017 08/13/2018 Route: BOTH EYES Sig: Use 1 Drop in both eyes every 4 hours. Patient not taking: Reported on 08/13/2018 Disc: Reason for discontinue is not on file. ENOXAPARIN SODIUM (LOVENOX SUBCUTANE* 08/13/2018 Class: Historical Med Route: SUBCUTANEOUS Sig: Inject subcutaneously. Disc: Reason for discontinue is not on file. heparin 10,000 unit/mL injection 30 mL 1 09/27/2016 08/13/2018 Route: SUBCUTANEOUS Sig: Inject 1 mL subcutaneously every 12 hours. Disc: Reason for discontinue is not on file. Qtefpesy-So-Ymd-Fe-F A (PREN* 08/13/2018 Class: Historical Med Route: ORAL Sig: Take 1 tablet by mouth. Disc: Reason for discontinue is not on file. Insulin Syringes, Disposable, 1 mL s* 45 S* 0 09/27/2016 08/13/2018 Route: Miscell. (Med.Supl.;Non-Drugs ) Si Syringes once daily. with insulin needles Disc: Reason for discontinue is not on file. Encounter Status:Closed by EUGENE QUINN CNP on 08/13/18 [facility] PROGRESSon 08-13-2018 PROGRESS HNO ID: [id number] Author: Shirley Lee Service: ? Author Type: ? Type: Progress Notes Filed: 08/13/2018 9:27 AM Note Text: Radiology Service Progress Note PATIENT NAME: Kristen Christy DATE OF SERVICE: August 13, 2018 TIME: 9:14AM PATIENT IDENTITY VERIFICATION COMPLETED USING TWO (2) METHODS: Patient confirmed name verbally and Date of . PATIENT GENDER DATA: Female. status: : No status: NO. PATIENT RELEVANT IMPLANT DATA REVIEWED: Not Applicable RADIOLOGY DEPARTMENT: General X-ray: Exam(s) Completed: Spine X-Ray(s): Lumbar AP / LAT / L5-S1 PERIPHERAL IV DATA: Not applicable SIGNED BY: Shirley Lee August 13, 2018 9:22 AM [facility] PROGRESS HNO ID: [id number] Author: Eugene Quinn Service: ? Author Type: Nurse Practitioner Type: Progress Notes Filed: 08/13/2018 10:07 AM Note Text: HPI/CC: Kristen Christy is a 22 year old female accompanied by her father who presents for a well adult exam[facility]. New concerns today include Establish care and back pain. Personal hx of 2 C-sections. Post- depression and x2 PEs related to OCPs and . Back pain: Started ~2 months ago after falling on the ice in June. Worsening over the last 2 weeks. Sitting too long makes it worse. Tried stretching, ibuprofen and heating pad without significant improvement. Denies any numbness, tingling, weakness or bowel/bladder incontinence. Tends to skip breakfast, would skip lunch if she could. Needs reminded. Not hungry or focused on the kids. Eats a lot of carbs. Exercise walks regularly. Sleep 6-8 hours per night. REVIEW OF SYSTEMS: GENERAL: No fevers or chills. Weight is stable. Getting over sinus cold DERMATOLOGIC: Denies any new skin conditions, rashes or changing moles. EYES: Denies recent visual changes. and Last eye exam was February 2018, wears glasses/contacts ENT: Denies hearing loss or tinnitus RESPIRATORY: Denies any cough, dyspnea, or wheezing. CARDIOVASCULAR: Denies any chest pain with exertion or at rest, palpitations, syncope, or edema. BREASTS: Denies any breast lumps, tenderness, dimpling, skin changes, or nipple discharge. GASTROINTESTINAL: Denies any nausea, vomiting, abdominal pain, heartburn, changes in bowel habit, Denies any rectal bleeding. Last colonoscopy: N/A GENITOURINARY: Denies any urinary frequency, urgency, incontinence, dysuria. Denies vaginal odor, discharge or lesions. Denies irregular vaginal bleeding or spotting. Patient's last menstrual period was 07/30/2018 (approximate). BSE? yes DISTRICT RANGER: follows with , last visit ~1 month ago MUSCULOSKELETAL: Positive for back pain NEURO: Denies any headaches, tremors, dizziness, vertigo, memory loss, confusion., Denies weakness, numbness or tingling.. PSYCHIATRIC: Denies any sleeping problems, history of abuse, marital discord., Denies any anxiety or depression. HEMATOLOGIC/LYMPHATI C/IMMUNOLOGIC: Denies anemia, bruising, bleeding abnormalities. ENDOCRINE: Denies any heat or cold intolerance, polyuria or polydipsia. HISTORIES PAST MEDICAL HISTORY Diagnosis Date - Depression - depression - Pulmonary embolism (HCC) 2012 on control PAST SURGICAL HISTORY Procedure Laterality Date - DELIVERY ONLY 11/30/14 , low transverse - DELIVERY ONLY 10/12/2016 FAMILY HISTORY Problem Relation Age of Onset - Diabetes Father Type 2 - Arthritis Mother - other (Migraines) Mother - other (Depression) Mother - Arthritis Maternal Grandmother - Cancer Maternal Grandfather Lung - Hypertension Maternal Grandfather Both sides of family Social History Socioeconomic History Marital status: Single Spouse name: Not on file Number of children: 1 Years of education: 12 Highest education level: Not on file Social Needs Financial resource strain: Not on file Food insecurity - worry: Not on file Food insecurity - inability: Not on file Transportation needs - medical: Not on file Transportation needs - non-medical: Not on file Occupational History Occupation: homemaker Tobacco Use Smoking status: Never Smoker Smokeless tobacco: Never Used Substance and Sexual Activity Alcohol use: No Drug use: No Sexual activity: Yes Partners: Male Other Topics Concerns: Not on file Social History Narrative Not on file Current Outpatient Medications on File Prior to Visit: copper (PARAGARD T 380A) 380 square mm intrauterine device INSERTED IN THE OFFICE trimethoprim-polymyx in eye drops (POLYTRIM) ophthalmic solution Use 1 Drop in both eyes every 4 hours. (Patient not taking: Reported on 08/13/2018 ) ENOXAPARIN SODIUM (LOVENOX SUBCUTANEOUS) Inject subcutaneously. heparin 10,000 unit/mL injection Inject 1 mL subcutaneously every 12 hours. Insulin Syringes, Disposable, 1 mL syrg 2 Syringes once daily. with insulin needles Ozsqjodl-Ph-Nuk-Fe-F A ( VITAMIN) tab Take 1 tablet by mouth. No current facility-administere d medications on file prior to visit. ALLERGIES Allergen Reactions - Penicillins Vomiting OBJECTIVE/PHYSICAL EXAMINATION: BP 104/72 Pulse 104 Temp 36.1 ?C (96.9 ?F) (Left Tympanic) Resp 16 Ht 172.1 cm (5' 7.75) Wt 103.5 kg (228 lb 1.9 oz) LMP 07/30/2018 (Approximate) ? No BMI 34.94 kg/m? General appearance: Well appearing, alert, in no acute distress, well-hydrated, well nourished. Skin: Skin color, texture, turgor normal, no suspicious rashes or lesions Head: Normocephalic, no masses, lesions, tenderness or abnormalities Eyes: Anicteric sclera. Pupils are equally round and reactive to light. Extraocular movements are intact. Wearing glasses Ears: External ears normal, canals clear, TM's normal Nose/Sinuses: Nares normal, septum midline, mucosa normal, no drainage or sinus tenderness Oropharynx: Lips, mucosa, and tongue normal, teeth and gums normal, oropharynx normal and Positive findings: tonsillar hypertrophy 2+ Neck: Positive findings: tonsillar adenopathy Back: slight dec extension, positive findings: tenderness at the level of T12/L1-2-3 and surrounding musculature. Negative sitting straight leg raise Lungs: Lungs clear to auscultation. No wheezing, rhonchi, rales Heart: tachycardia regular rythm without murmur, normal S1 and S2 Abdomen: Normal abdominal exam, Abdomen soft, non-tender. Bowel sounds normal. No masses, organomegaly Extremities: No deformities, edema, skin discoloration, clubbing or cyanosis. Good capillary refill. Peripheral pulses: Normal Neuro:Awake, alert and oriented x 3, Cranial nerves II-XII grossly intact and Normal gait ASSESSMENT/PLAN: 1. Well adult exam - ICD9: V70.0, ICD10: Z00.00 (primary diagnosis) - Encouraged monthly Breast Self Exam - Recommended regular aerobic exercise. - HPV vaccine discussed and recommended - pt will check w/insurance and her DISTRICT RANGER's office - Follow up for annual exam in one year. 2. Acute right-sided low back pain without sciatica - ICD9: 724.2, ICD10: M54.5 Lumbosacral sprain - Bedrest for 2-3 days - Ice for localized tenderness - Warm moist heat for 20 min three times a day - NSAIDS- see orders - Xrays- see orders - Follow up in 2 weeks or sooner if symptoms persist or worsen - XR LUMBAR GENERAL 3V AP/LAT/L5-S1 3. Fall, initial encounter - ICD9: E888.9, ICD10: W19.XXXA - XR LUMBAR GENERAL 3V AP/LAT/L5-S1 Prescription instructions reviewed with patient as applicable. Potential red flag symptoms discussed with the patient. Reviewed appropriate action plan to take if red flag symptoms occur. Patient agreeable to treatment plan. Eugene Quinn APRN.PROCUREMENT ANALYST [facility] XR LUMBAR 3V AP/LAT/L5-S1on 08-13-2018 XR LUMBAR 3V AP/LAT/L5-S1 * * *Final Report* * * DATE OF EXAM: Aug 13 2018 9:22AM WOX [id number] - XR LUMBAR 3V AP/LAT/L5-S1 / PROCEDURE REASON: multiple diagnoses * * * * Physician Interpretation * * * * EXAMINATION: XR LUMBAR 3V AP/LAT/L5-S1 HISTORY: posterior low back pain across the top of pelvis for 3 weeks. no injury Acute right-sided low back pain without sciatica Fall, initial encounter . TECHNIQUE: XR LUMBAR 3V AP/LAT/L5-S1 Laterality: LEFT Number of different views (projections): 3 M: XB_1 COMPARISON: There are no prior studies for comparison RESULT: Counting reference: Lumbosacral junction. For the purposes of this report, L5-S1 is considered the last lumbar-type disc space and L4-5 is considered the level of the iliac crest. 3 Views of the lumbosacral spine with AP, lateral and cone-down radiographs demonstrate multilevel degenerative change with vertebral body osteophytosis. There is mild intervertebral disc space narrowing at L5-S1 levels. There is no significant hypertrophic facet change. There are no compression fractures and alignment is well maintained. The soft tissues are unremarkable with IUD in situ. IMPRESSION: Mild degenerative change. Cvicu Rn: SANTI Transcribe Date/Time: Aug 13 2018 6:18P Dictated by : CHRISTA MONSON MD This examination was interpreted and the report reviewed and electronically signed by: CHRISTA MONSON MD on Aug 13 2018 6:19PM EST [id number] [facility] CNOVon 05-03-2018 CNOV Office Visit ([facility]) KRISTEN CHRISTY Lora ([id number]) 1995 F Date Time Provider Department 05/03/18 11:15 AM DAVON MARIA (JOE) [facility] During your visit today, we recorded the following information about you: Temperature Pulse Respiration Blood pressure 97.9 degrees 83/minute 18/minute 110/80 Weight 103.4 kg Davon Maria APRN.CNP 05/03/2018 12:11 PM Signed Subjective HPI HPI Kristen Paulino Westley is a 22 year old female who presents today for CC of bilateral ear pain. This started 2 weeks, was on zpack did not help. Has tried otc medication. Symptoms are worsened by nothing. Risk factors recent illness. Nonsmoker, Denies possibility of being . .Patient presents with: Ear Problem: took zpack from [facility] and still not helping. went sat. before [place] PAST MEDICAL HISTORY Diagnosis Date - Depression - depression - Pulmonary embolism (HCC) 2012 on control PAST SURGICAL HISTORY Procedure Laterality Date - DELIVERY ONLY 11/30/14 , low transverse - DELIVERY ONLY 10/12/2016 ALLERGIES Penicillins -This section reviewed with patient, no changes MEDICATIONS copper (PARAGARD T 380A) 380 square mm intrauterine device INSERTED IN THE OFFICE ENOXAPARIN SODIUM (LOVENOX SUBCUTANEOUS) Inject subcutaneously. heparin 10,000 unit/mL injection Inject 1 mL subcutaneously every 12 hours. Insulin Syringes, Disposable, 1 mL syrg 2 Syringes once daily. with insulin needles Plvpwoan-Sq-Gwv-Fe-F A ( VITAMIN) tab Take 1 tablet by mouth. trimethoprim-polymyx in eye drops (POLYTRIM) ophthalmic solution Use 1 Drop in both eyes every 4 hours. FAMILY HISTORY Problem Relation Age of Onset - Diabetes Father Type 2 - Arthritis Mother - other (Migraines) Mother - other (Depression) Mother - Arthritis Maternal Grandmother - Cancer Maternal Grandfather Lung - Hypertension Maternal Grandfather Both sides of family Social History Substance Use Topics - Smoking status: Never Smoker - Smokeless tobacco: Never Used - Alcohol use No Review of Systems Constitutional: Negative for chills, fever and weight loss. HENT: Positive for congestion and ear pain. Negative for ear discharge, nosebleeds and sore throat. Respiratory: Negative for cough, shortness of breath and wheezing. Musculoskeletal: Negative for neck pain. Objective Blood pressure 110/80, pulse 83, temperature 36.6 ?C (97.9 ?F), temperature source Left Tympanic, resp. rate 18, weight 103.4 kg (228 lb), SpO2 99 %, not currently . Physical Exam Constitutional: She is oriented to person, place, and time and well-developed, well-nourished, and in no distress. Non-toxic appearance. She does not have a sickly appearance. No distress. HENT: Head: Normocephalic and atraumatic. Right Ear: Hearing, external ear and ear canal normal. Tympanic membrane is erythematous and bulging. Tympanic membrane is not perforated. Left Ear: Hearing, tympanic membrane, external ear and ear canal normal. Nose: Nose normal. Mouth/Throat: Uvula is midline, oropharynx is clear and moist and mucous membranes are normal. Eyes: Pupils are equal, round, and reactive to light. Conjunctivae and lids are normal. Right eye exhibits no discharge. Left eye exhibits no discharge. No scleral icterus. Neck: Trachea normal and normal range of motion. Neck supple. Cardiovascular: Normal rate, regular rhythm and normal heart sounds. Pulmonary/Chest: Effort normal and breath sounds normal. Lymphadenopathy: She has no cervical adenopathy. Neurological: She is alert and oriented to person, place, and time. Skin: No rash noted. She is not diaphoretic. ASSESSMENT/PLAN: 1. Acute otitis media, right - ICD9: 382.9, ICD10: H66.91 - Will begin treatment with as per antibiotic as written, see orders - Supportive care with plenty of fluids, rest, and analgesia prn. - Follow up in 3-5 days if symptoms persist or worsen. - CEFDINIR 300 MG CAPSULE Prescription instructions reviewed with patient as applicable. Patient advised if symptoms do not improve or if symptoms worsen sooner, to contact the office for further evaluation by their primary care physician. Potential red flag symptoms discussed with the patient. Reviewed appropriate action plan to take if red flag symptoms occur. Patient agreeable to treatment plan. Davon Maria APRN.JOE Maria APRN.JOE 05/03/2018 11:56 AM Signed OTITIS MEDIA GENERAL INFORMATION: Otitis media is an infection of the middle ear. The middle ear sits behind the eardrum. This infection may be caused by a virus or bacteria and often follows a cold. Children often have repeat ear infections. Otitis media is not contagious. INSTRUCTIONS: 1. An antibiotic has been prescribed. It should be taken exactly as prescribed. Do not stop the medicine even if the symptoms go away. 2. Mhok-udt-kewnqqs pain medication may be taken or other pain medication as prescribed by the doctor. 3. Nothing should be placed in the ear unless instructed by your doctor. 4. The patient may return to school/daycare or work when the temperature is normal (98.6 F or 37 C). 5. The patient should not swim while the ear is infected. CONTACT YOUR DOCTOR IF YOU OR YOUR CHILD: 1. Does not feel better within 36 hours. 2. Develops a temperature over 102E F (39E C). 3. Starts vomiting or has diarrhea. 4. Develops drainage from the affected ear. 5. Has any new problem that may be related to the medicine prescribed. RETURN TO THE ED IF: 1. You or your child has a severe headache or pain around the ear. 2. You or your child notice swelling around the ear. 3. You or your child has a seizure (convulsion), twitching of the facial muscles, or passes out. 4. You or your child is dizzy, has a stiff neck, or cannot walk or talk normally. 5. Your child becomes more irritable or listless (not interested in his or her surroundings, does not get soothed by you holding him or her). Referring Provider: SELF [[id number]] Allergies As of Date: 05/03/2018 Noted Allergy Reaction PENICILLINS 07/20/2013 11 - Vomiting Date Reviewed: 05/03/2018 Reviewed by: Davon ([facility]) - Fully Assessed Reason for Visit: Ear Problem [38] Cmt: took zpack from [facility] and still not helping. went sat. before [place] Reason For Visit History Recorded Primary Visit Diagnosis:Acute otitis media, right [H66.91] Order(s):cefdinir (OMNICEF) 300 mg capsuleTake 1 capsule by mouth twice daily for 10 days.Disp: 20 capsuleRfl: 0 Prescriptions as of 05/03/2018 Sig: CEFDINIR 300 MG CAPSULE Take 1 capsule by mouth twice* COPPER 380 SQUARE MM INTRAUTE* INSERTED IN THE OFFICE LOVENOX SUBCUTANEOUS Inject subcutaneously. HEPARIN (PORCINE) 10,000 UNIT* Inject 1 mL subcutaneously ev* INSULIN SYRINGES (DISPOSABLE)* 2 Syringes once daily. with i* VITAMIN,CALCIUM,MINE * Take 1 tablet by mouth. POLYMYXIN B SULFATE 10,000 UN* Use 1 Drop in both eyes every* Problem List As Of Date 05/03/2018 Noted Resolved Normal [Z34.90] INVALID FOR*10/21/2014 More... Rubella non-immune status, antepartum [O99.89, *INVALID FOR* Nuchal fold thickening on prental ultrasound [O*INVALID FOR*12/14/2014 Suspected anomaly, antepartum [O35.9XX0] INVALID FOR*12/14/2014 High-risk supervision [O09.90] INVALID FOR*12/14/2014 More... More... History of section [Z98.891] INVALID FOR* More... History of wound infection [Z86.19] INVALID FOR* More... History of depression [Z86.59] INVALID FOR* More... History of pulmonary embolism [Z86.711] INVALID FOR* More... Obesity in [O99.210] INVALID FOR* More... More... Other instructions from your clinician: OTITIS MEDIA GENERAL INFORMATION: Otitis media is an infection of the middle ear. The middle ear sits behind the eardrum. This infection may be caused by a virus or bacteria and often follows a cold. Children often have repeat ear infections. Otitis media is not contagious. INSTRUCTIONS: 1. An antibiotic has been prescribed. It should be taken exactly as prescribed. Do not stop the medicine even if the symptoms go away. 2. Kyra-bfs-rwtrdom pain medication may be taken or other pain medication as prescribed by the doctor. 3. Nothing should be placed in the ear unless instructed by your doctor. 4. The patient may return to school/daycare or work when the temperature is normal (98.6 F or 37 C). 5. The patient should not swim while the ear is infected. CONTACT YOUR DOCTOR IF YOU OR YOUR CHILD: 1. Does not feel better within 36 hours. 2. Develops a temperature over 102E F (39E C). 3. Starts vomiting or has diarrhea. 4. Develops drainage from the affected ear. 5. Has any new problem that may be related to the medicine prescribed. RETURN TO THE ED IF: 1. You or your child has a severe headache or pain around the ear. 2. You or your child notice swelling around the ear. 3. You or your child has a seizure (convulsion), twitching of the facial muscles, or passes out. 4. You or your child is dizzy, has a stiff neck, or cannot walk or talk normally. 5. Your child becomes more irritable or listless (not interested in his or her surroundings, does not get soothed by you holding him or her). Prescriptions ordered this encounter Disp Refills Start End CEFDINIR 300 MG CAPSULE 20 c* 0 05/03/2018 05/13/2018 Route: ORAL Sig: Take 1 capsule by mouth twice daily for 10 days. Encounter Status:Closed by DAVON MARIA CNP on 05/03/18 [facility] PROGRESSon 05-03-2018 PROGRESS HNO ID: [id number] Author: Davon Li) Service: (none) Author Type: Nurse Practitioner Type: Progress Notes Filed: 05/03/2018 12:11 PM Note Text: Subjective HPI HPI Kristen N Cutter is a 22 year old female who presents today for CC of bilateral ear pain. This started 2 weeks, was on zpack did not help. Has tried otc medication. Symptoms are worsened by nothing. Risk factors recent illness. Nonsmoker, Denies possibility of being . .Patient presents with: Ear Problem: took zpack from [facility] and still not helping. went sat. before [place] PAST MEDICAL HISTORY Diagnosis Date - Depression - depression - Pulmonary embolism (HCC) 2012 on control PAST SURGICAL HISTORY Procedure Laterality Date - DELIVERY ONLY 11/30/14 , low transverse - DELIVERY ONLY 10/12/2016 ALLERGIES Penicillins -This section reviewed with patient, no changes MEDICATIONS copper (PARAGARD T 380A) 380 square mm intrauterine device INSERTED IN THE OFFICE ENOXAPARIN SODIUM (LOVENOX SUBCUTANEOUS) Inject subcutaneously. heparin 10,000 unit/mL injection Inject 1 mL subcutaneously every 12 hours. Insulin Syringes, Disposable, 1 mL syrg 2 Syringes once daily. with insulin needles Qdyzrbxr-Dr-Und-Fe-F A ( VITAMIN) tab Take 1 tablet by mouth. trimethoprim-polymyx in eye drops (POLYTRIM) ophthalmic solution Use 1 Drop in both eyes every 4 hours. FAMILY HISTORY Problem Relation Age of Onset - Diabetes Father Type 2 - Arthritis Mother - other (Migraines) Mother - other (Depression) Mother - Arthritis Maternal Grandmother - Cancer Maternal Grandfather Lung - Hypertension Maternal Grandfather Both sides of family Social History Substance Use Topics - Smoking status: Never Smoker - Smokeless tobacco: Never Used - Alcohol use No Review of Systems Constitutional: Negative for chills, fever and weight loss. HENT: Positive for congestion and ear pain. Negative for ear discharge, nosebleeds and sore throat. Respiratory: Negative for cough, shortness of breath and wheezing. Musculoskeletal: Negative for neck pain. Objective Blood pressure 110/80, pulse 83, temperature 36.6 ?C (97.9 ?F), temperature source Left Tympanic, resp. rate 18, weight 103.4 kg (228 lb), SpO2 99 %, not currently . Physical Exam Constitutional: She is oriented to person, place, and time and well-developed, well-nourished, and in no distress. Non-toxic appearance. She does not have a sickly appearance. No distress. HENT: Head: Normocephalic and atraumatic. Right Ear: Hearing, external ear and ear canal normal. Tympanic membrane is erythematous and bulging. Tympanic membrane is not perforated. Left Ear: Hearing, tympanic membrane, external ear and ear canal normal. Nose: Nose normal. Mouth/Throat: Uvula is midline, oropharynx is clear and moist and mucous membranes are normal. Eyes: Pupils are equal, round, and reactive to light. Conjunctivae and lids are normal. Right eye exhibits no discharge. Left eye exhibits no discharge. No scleral icterus. Neck: Trachea normal and normal range of motion. Neck supple. Cardiovascular: Normal rate, regular rhythm and normal heart sounds. Pulmonary/Chest: Effort normal and breath sounds normal. Lymphadenopathy: She has no cervical adenopathy. Neurological: She is alert and oriented to person, place, and time. Skin: No rash noted. She is not diaphoretic. ASSESSMENT/PLAN: 1. Acute otitis media, right - ICD9: 382.9, ICD10: H66.91 - Will begin treatment with as per antibiotic as written, see orders - Supportive care with plenty of fluids, rest, and analgesia prn. - Follow up in 3-5 days if symptoms persist or worsen. - CEFDINIR 300 MG CAPSULE Prescription instructions reviewed with patient as applicable. Patient advised if symptoms do not improve or if symptoms worsen sooner, to contact the office for further evaluation by their primary care physician. Potential red flag symptoms discussed with the patient. Reviewed appropriate action plan to take if red flag symptoms occur. Patient agreeable to treatment plan. Davon Maria APRN.PROCUREMENT ANALYST [facility] Vital Signs Date Time Vital Sign Value Performing Clinician Jonh quesada 01-25-2025 08:59-0400 Body height 172.72 cm No Primary Care Physician [facility] 01-25-2025 08:59-0400 Body mass index (BMI) [Ratio] 38.2 kg/m2 No Primary Care Physician [facility] 01-25-2025 08:59-0400 Body temperature 98 [degF] No Primary Care Physician [facility] 01-25-2025 08:59-0400 Body weight 114.3 kg No Primary Care Physician [facility] 01-25-2025 08:59-0400 Diastolic blood pressure 80 mm[Hg] No Primary Care Physician [facility] 01-25-2025 08:59-0400 Heart rate 94 /min No Primary Care Physician [facility] 01-25-2025 08:59-0400 Respiratory rate 16 /min No Primary Care Physician [facility] 01-25-2025 08:59-0400 SaO2% (BldA) [Mass fraction] 99 % No Primary Care Physician [facility] 01-25-2025 08:59-0400 Systolic blood pressure 110 mm[Hg] No Primary Care Physician [facility] 10-22-2024 16:51-0400 Body temperature 98.7 [degF] No Primary Care Physician [facility] 10-22-2024 16:51-0400 Diastolic blood pressure 84 mm[Hg] No Primary Care Physician [facility] 10-22-2024 16:51-0400 Heart rate 107 /min No Primary Care Physician [facility] 10-22-2024 16:51-0400 Respiratory rate 16 /min No Primary Care Physician [facility] 10-22-2024 16:51-0400 SaO2% (BldA) [Mass fraction] 96 % No Primary Care Physician [facility] 10-22-2024 16:51-0400 Systolic blood pressure 114 mm[Hg] No Primary Care Physician [facility] 10-19-2024 08:38-0400 Body height 172.72 cm No Primary Care Physician [facility] 10-19-2024 08:38-0400 Body mass index (BMI) [Ratio] 38.9 kg/m2 No Primary Care Physician [facility] 10-19-2024 08:38-0400 Body temperature 99 [degF] No Primary Care Physician [facility] 10-19-2024 08:38-0400 Body weight 116.11 kg No Primary Care Physician [facility] 10-19-2024 08:38-0400 Diastolic blood pressure 66 mm[Hg] No Primary Care Physician [facility] 10-19-2024 08:38-0400 Heart rate 107 /min No Primary Care Physician [facility] 10-19-2024 08:38-0400 Respiratory rate 18 /min No Primary Care Physician [facility] 10-19-2024 08:38-0400 SaO2% (BldA) [Mass fraction] 99 % No Primary Care Physician [facility] 10-19-2024 08:38-0400 Systolic blood pressure 124 mm[Hg] No Primary Care Physician [facility] 08-14-2024 11:09-0400 Body temperature 98 [degF] No Primary Care Physician [facility] 08-14-2024 11:09-0400 Diastolic blood pressure 80 mm[Hg] No Primary Care Physician [facility] 08-14-2024 11:09-0400 Heart rate 67 /min No Primary Care Physician [facility] 08-14-2024 11:09-0400 Respiratory rate 15 /min No Primary Care Physician [facility] 08-14-2024 11:09-0400 SaO2% (BldA) [Mass fraction] 97 % No Primary Care Physician [facility] 08-14-2024 11:09-0400 Systolic blood pressure 112 mm[Hg] No Primary Care Physician [facility] 05-20-2022 21:43-0500 Heart rate 68 /min No Primary Care Physician [facility] 05-20-2022 21:43-0500 Respiratory rate 16 /min No Primary Care Physician [facility] 05-20-2022 21:43-0500 SaO2% (BldA) [Mass fraction] 99 % No Primary Care Physician [facility] 05-20-2022 20:05-0500 Body height 172.72 cm No Primary Care Physician [facility] 05-20-2022 20:05-0500 Body mass index (BMI) [Ratio] 34.2 kg/m2 No Primary Care Physician [facility] 05-20-2022 20:05-0500 Body temperature 97 [degF] No Primary Care Physician [facility] 05-20-2022 20:05-0500 Body weight 102.05 kg No Primary Care Physician [facility] 05-20-2022 20:05-0500 Diastolic blood pressure 100 mm[Hg] No Primary Care Physician [facility] 05-20-2022 20:05-0500 Systolic blood pressure 154 mm[Hg] No Primary Care Physician [facility] 05-19-2022 11:30-0500 Body temperature 99.2 [degF] No Primary Care Physician [facility] 05-19-2022 11:30-0500 Diastolic blood pressure 80 mm[Hg] No Primary Care Physician [facility] 05-19-2022 11:30-0500 Heart rate 89 /min No Primary Care Physician [facility] 05-19-2022 11:30-0500 Respiratory rate 15 /min No Primary Care Physician [facility] 05-19-2022 11:30-0500 SaO2% (BldA) [Mass fraction] 99 % No Primary Care Physician [facility] 05-19-2022 11:30-0500 Systolic blood pressure 114 mm[Hg] No Primary Care Physician [facility] 05-12-2022 11:40-0500 Body temperature 99.4 [degF] No Primary Care Physician [facility] 05-12-2022 11:40-0500 Diastolic blood pressure 72 mm[Hg] No Primary Care Physician [facility] 05-12-2022 11:40-0500 Heart rate 91 /min No Primary Care Physician [facility] 05-12-2022 11:40-0500 Respiratory rate 14 /min No Primary Care Physician [facility] 05-12-2022 11:40-0500 SaO2% (BldA) [Mass fraction] 98 % No Primary Care Physician [facility] 05-12-2022 11:40-0500 Systolic blood pressure 124 mm[Hg] No Primary Care Physician [facility] 04-02-2022 10:54-0500 Body temperature 98.7 [degF] No Primary Care Physician [facility] 04-02-2022 10:54-0500 Diastolic blood pressure 70 mm[Hg] No Primary Care Physician [facility] 04-02-2022 10:54-0500 Heart rate 82 /min No Primary Care Physician [facility] 04-02-2022 10:54-0500 Respiratory rate 20 /min No Primary Care Physician [facility] 04-02-2022 10:54-0500 SaO2% (BldA) [Mass fraction] 99 % No Primary Care Physician [facility] 04-02-2022 10:54-0500 Systolic blood pressure 100 mm[Hg] No Primary Care Physician [facility] 03-21-2022 09:26-0500 Body temperature 98.4 [degF] No Primary Care Physician [facility] 03-21-2022 09:26-0500 Diastolic blood pressure 84 mm[Hg] No Primary Care Physician [facility] 03-21-2022 09:26-0500 Heart rate 75 /min No Primary Care Physician [facility] 03-21-2022 09:26-0500 Respiratory rate 14 /min No Primary Care Physician [facility] 03-21-2022 09:26-0500 SaO2% (BldA) [Mass fraction] 99 % No Primary Care Physician [facility] 03-21-2022 09:26-0500 Systolic blood pressure 122 mm[Hg] No Primary Care Physician [facility] Encounters Encounter Date Encounter Type Care Provider Facility Start: 03-02-2025 ambulatory Brooklyn Block NP Facil ity:[facility] Start: 01-25-2025 End: 01-25-[address] Grupo Zavala MD -[facility] Work Phone: Start: 01-25-2025 End: 01-25-2025 ambulatory No Primary Care Physician -[facility] Start: 10-23-2024 End: 10-23-2024 ambulatory No Primary Care Physician -Laboratory Specimen Start: 10-23-2024 End: 10-23-2024 Patient encounter procedure Nathan JACKSON -[facility] Spec[facility] Work Phone: Start: 10-22-2024 End: 10-22-2024 Patient encounter procedure Nathan JACKSON [facility] Work Phone: Start: 10-22-2024 End: 10-23-2024 ambulatory No Primary Care Physician [facility] Work Phone: Start: 10-22-2024 Encounter for genera l adult medical examination without abnormal findings Grupo Zavala [facility] Start: 10-19-2024 End: 10-19-[address] Grupo Zavala MD -[facility] Work Phone: Start: 10-19-2024 End: 10-19-[address] Grupo Zavala MD [facility] Start: 10-19-2024 End: 10-19-2024 ambulatory No Primary Care Physician [facility] Work Phone: Start: 10-19-2024 End: 10-19-2024 ambulatory Grupo Zavala Facility:[facility] Start: 08-14-2024 End: 08-14-2024 Patient encounter procedure Nathan Ferrer [facility] Work Phone: Start: 08-14-2024 End: 08-14-2024 ambulatory No Primary Care Physician Facility:[facility] Start: 05-18-2024 End: 05-18-2024 ambulatory No Primary Care Physician Facility:[facility] Start: 04-28-2024 End: 04-28-2024 ambulatory No Primary Care Physician Facility:[facility] Start: 05-20-2022 End: 05-20-2022 Emergency department patient visit No Primary Care Physician [facility] Start: 05-19-2022 End: 05-19-2022 ambulatory No Primary Care Physician [facility] Work Phone: Start: 05-19-2022 End: 05-19-2022 Patient encounter procedure No Primary Care Physician [facility]-Laboratory, Specimen Start: 05-19-2022 End: 05-19-2022 Patient encounter procedure No Primary Care Physician [facility] Start: 05-12-2022 End: 05-12-2022 Patient encounter procedure No Primary Care Physician [facility] Start: 04-02-2022 End: 04-02-2022 Patient encounter procedure No Primary Care Physician [facility] Start: 03-21-2022 End: 03-21-2022 Patient encounter procedure No Primary Care Physician [facility] Start: 09-22-2012 End: 09-23-2012 ambulatory SELF REFERRED [facility] Procedures Date Procedure Procedure Detail Performing Clinician Start: 10-23-2024 Urine culture No Primar y Care Physician Start: 05-20-2022 CT of abdomen and pe lvis without contrast No Primary Care Physician Start: 04-02-2022 Radiography of ankle No Primary Care Physician Urine culture No Primary Car e Physician Urine culture No Primary Car e Physician Plan of Treatment Date Care Activity Detail Author Start: 10-19-2024 Patient referral [facility] Work Phone: Start: 10-19-2024 CBC W Auto Differential panel - Blood [facility] Start: 10-19-2024 Cobalamin (Vitamin B12) [Mass/volume] in Serum or Plasma [facility] Start: 10-19-2024 Comprehensive metabolic 2000 panel - Serum or Plasma [facility] Start: 10-19-2024 Hemoglobin A1c/Hemoglobin.total in Blood [facility] Start: 10-19-2024 Lipid 1996 panel - Serum or Plasma [facility] Start: 10-19-2024 T4 free measurement [facility] Start: 10-19-2024 Thyroid stimulating hormone measurement [facility] Start: 05-20-2022 [facility] Work Phone: Start: 05-19-2022 [facility] Work Phone: Alanine aminotransfe rase [Enzymatic activity/volume] in Serum or Plasma [facility] Albumin [Mass/volume ] in Serum or Plasma [facility] Alkaline phosphatase [Enzymatic activity/volume] in Serum or Plasma [facility] Anion gap in Serum o r Plasma [facility] Bacteria identified in Urine by Culture [facility] Work Phone: Bilirubin, total measurement [facility] BUN/Creatinine ratio [facility] Calcium [Mass/volume ] in Serum or Plasma [facility] Carbon dioxide, tota l [Moles/volume] in Central venous blood [facility] Cholesterol [Mass/vo lume] in Serum or Plasma [facility] Cholesterol in HDL [Mass/volume] in Serum or Plasma [facility] Creatinine [Mass/vol ume] in Serum or Plasma [facility] Erythrocyte mean corpuscular volume determination [facility] Glucose [Mass/volume ] in Serum or Plasma [facility] Hematocrit [Volume Fraction] of Blood [facility] Hemoglobin [Mass/vol ume] in Blood [facility] Leukocytes [#/volume ] in Blood [facility] Low density lipoprot ein cholesterol measurement [facility] Mean corpuscular hem oglobin concentration determination [facility] Mean corpuscular hem oglobin determination [facility] Measurement of renal function [facility] Neutrophil count [facility] Neutrophil percent differential count [facility] Patient Education Abdominal Pain ED Cystitis Female Adult [facility] Work Phone: Patient referral [facility] Work Phone: Platelets [#/volume] in Blood [facility] Potassium measurement [facility] Red blood cell count [facility] Red cell distributio n width determination [facility] Serum chloride measurement [facility] Sodium measurement [facility] Total cholesterol:HD L ratio measurement [facility] Total protein measurement [facility] Triglycerides measurement [facility] Urea nitrogen [Mass/ volume] in Serum or Plasma [facility] VLDL cholesterol measurement [facility] Immunizations Immunization Date Immunization Notes Care Provider Fa [facility] 10-14-2016 measles, mumps and rubella virus vaccine No Primary Care Physician [facility] 12-01-2014 measles, mumps and rubella virus vaccine No Primary Care Physician [facility] Payers Date Payer Category Payer Self-pay [id number] 2016 Unknown [id number] 2016 Unknown [id number] 1994 Unknown [id number] [id number]. [id number] Unknown [id number] 2.16.8 [id number] Unknown [id number] 2.16.8 [id number] Unknown [id number] 2.16.8 [id number] Unknown [id number] 2.16.8 [id number] Unknown [id number] 2.16.8 [id number] Unknown [id number] 2.16.8 [id number] Unknown [id number] 2.16.8 [id number] Unknown [id number] 2.16.8 [id number] Unknown [id number] 2.16.8 [id number] Social History Date Type Detail Facility Start: 05-20-2022 Tobacco smoking status NHIS Unknown if ever smoked [facility] Start: 12-17-2018 None [facility] Start: 12-17-2018 With Family [facility] Start: 1995 Sex Assigned At Female [facility] Start: 10-19-2024 Tobacco smoking status NHIS Never smoked tobacco (finding) [facility] Sex Female [facility] NEGATED: Highlighted row [facility] Work Phone: NEGATED: Highlighted row [facility] Progress note 01-25-2025 Note Date & Type Note Facility 01-25-2025 Progress note [facility] Evaluation note 10-19-2024 Note Date & Type Note Facility 10-19-2024 Evaluation note Diagnosis Onset Date Resolution Anxiety and depression acute Ju 2024 8:28am Obesity acute October 19 8:28am [facility] care acute October 19, 2024 8:28am Cystitis acute October 22 4:42pm Anxiety and depression acute Se ptember 2024 8:50am Insomnia acute January 8:50am [facility] Work Phone: Evaluation note 08-14-2024 Note Date & Type Note Facility 08-14-2024 Evaluation note Diagnosis Onset Date Resolution Acute sinusitis acute August 11:00am Acute pharyngitis, unspecified acute October 19, 2024 8:28am Acute sinusitis acute October 8:28am Bilateral acute otitis media acute October 19, 2024 8:28am Bronchitis acute October 19 8:28am Dysfunction of both eustachian tubes acute October 19, 2024 8:28am Encounter for screening for COVID-19 acute October 19, 2024 8:28am Pharyngitis acute October 19 8:28am Right ankle sprain acute October 042024 8:28am Sore throat acute October 19 8:28am Strain of wrist, right acute Ju ne 2024 8:28am URI (upper respiratory infection) acute October 19, 2024 8:28am UTI (urinary tract infection) acute October 19, 2024 8:28am [facility] Work Phone: Evaluation note 08-14-2024 Note Date & Type Note Facility 08-14-2024 Evaluation note Diagnosis Onset Date Resolution Acute sinusitis acute August 11:00am Anxiety and depression acute Ju ne 2024 8:28am Obesity acute October 19 8:28am [facility] care acute October 19, 2024 8:28am [facility] Work Phone: Evaluation note 08-14-2024 Note Date & Type Note Facility 08-14-2024 Evaluation note Diagnosis Onset Date Resolution Acute sinusitis acute August 11:00am Anxiety and depression acute Ju ne 2024 8:28am Obesity acute October 19 8:28am [facility] acute October 19, 2024 8:28am Cystitis acute October 22 4:42pm [facility] Work Phone: Evaluation note Note Date & Type Note Facility Evaluation note Diagnosis Onset Date Acute pharyngitis, unspecified acute URI (upper respiratory infection) acute Right ankle sprain acute UTI (urinary tract infection) acute UTI (urinary tract infection) acute [facility] Work Phone: Hospital Discharge instructions Note Date & Type Note Facility Hospital Discharge instructions Ambulatory OrdersOB/DISTRICT RANGER Location: None Selected [facility] Work Phone: Progress note Note Date & Type Note Facility Progress note Note Date/Time January 25, 2025 9:19am [facility] [address] [place], [place] [address] OFFICE VISIT Date of Service: 01/25/25 MR#: [id number] Acct: [id number] Name: KRISTEN CHRISTY Rep #: [id number] : 1995 Provider: Dr. Magdalena Zavala MD Age/Sex: 29/F Location: [facility] Status: Signed Intake Vital Signs 10/19/24 08:38 01/25/25 08:59 Height 5 ft 8 in 5 ft 8 in Weight: 252 lb BMI 38.2 BP 110/80 Blood Pressure Location Lt brachial Position Sitting Respiration 16 Pulse 94 Pulse Source Monitor Temp 98.0 F Temp Source Temporal Pulse Oximetry (%) 99 Oxygen Delivery Method room air Intake Visit Reasons: 3 month Chief Complaint: 3 MONTH FU Is patient in pain?: No Allergies metoclopramide (From Reglan) Adverse Reaction (Mild, Verified 01/25/25 08:57) RESTLESS, ITCHING, FLUSHING Food Allergies: Uncoded Adverse Reaction (Verified 01/25/25 08:57) Vomiting Penicillins Adverse Reaction (Verified 01/25/25 08:57) Vomiting Medications ?Medication ?Instructions ?Recorded ?Confirmed ?Type trazodone 50 mg tablet 50 mg PO QHS PRN insomnia #3 0 tabs 01/25/25 01/25/25 Rx venlafaxine 75 mg capsule,extended 75 mg PO QDAY 3 mon ths #90 caps 01/25/25 01/25/25 Rx release 24 hr PFSH Medical History (Updated 01/25/25 @ 09:[address] Grupo Zavala MD) Insomnia Anxiety and depression Obesity Preventative health care Right ankle sprain Acute pharyngitis, unspecified URI (upper respiratory infection) UTI (urinary tract infection) Pulmonary embolism Surgical History History of 2 sections Family History Father Diabetes Hypertension Depression CVA (cerebral vascular accident) Brother Bipolar 1 disorder Suicide attempt Mother Depression Anxiety Suicide attempt Other Arthritis Fibromyalgia Social History household members: family current occupational status: unemployed Smoking Status: Never smoker alcohol intake: never substance use type: does not use caffeine: Yes (AM) Type: coffee what type of physical activity do you participate in: none seatbelt use: always do you feel safe at home: Yes additional social history: Kiszmr-Ncqrbif-Hjtvacsv Patient is stay at home mom HPI HPI Chief Complaint: 3 MONTH FU Details: KRISTEN CHRISTY, is a 29-year-old female presenting with medication management issues and sleep disturbances. History of anxiety and depression, initially started on Lexapro, however switched to venlafaxine which she has tolerated better but unsure of its effectiveness at this time due to a particularly stressful month. She is open to dose adjustment. Her sleep pattern is notably disrupted. The patient reports difficulty maintaining sleep, although a sleep aid in the form of an [id number] drinkhelps her fall asleep. She sleeps at least six hours, although not consecutively, and does not feel rested upon waking. The patient uses caffeinated drinks frequently to combat morning grogginess and describes difficulty initiating morning activities, particularly needing to manage responsibilities early in theday with limited rest. Other chronic medical conditions are stable. Attestation: Documentation on this patient encounter was supported using ambient scribe technology/ voice AI technology. The patient consented to recording for the purpose of documenting the encounter. Provider reviewed content of the generatednote prior to signature. ROS Const Constitutional: No body ache, chills, excessive sweating, fatigue, fever(s), frequent falls, headache(s), snoring, weakness, sleep problems or change in appetite Eyes Eyes: No blurry vision, change in vision, discharge, vision loss or Light sensitivity ENT ENT: No abnormal hearing, ear or mastoid pain, tinnitus, dizziness/vertigo, nasal congestion, nasal discharge, headache(s), neck pain or sore throat Resp Respiratory: No cough, excessive phlegm production, hemoptysis, shortness of breath, snoring or wheezing Cardio Cardiology: No chest pain at rest, chest pain with exertion, excessive sweating,shortness of breath, dyspnea on exertion, lightheadedness, orthopnea or palpitations Gastro GI: No abdominal pain, change in bowel habits, constipation, cramping, diarrhea or nausea/dyspepsia Genitourinary-Female: No burning urination, painful urination, urinary incontinence or urinary frequency Musc Musculoskeletal: No abnormal gait, joint pain, back pain, limited range of motion, muscle weakness, neck pain or numbness Skin Skin: No dry skin, redness, lesions, itchy eyes, rash or wounds Neuro Neurology: No abnormal gait, abnormal hearing, abnormal speech, behavioral changes, weakness, frequent falls, headache(s), memory loss or numbness Psych Psychiatric: Positive for anxiety, No behavioral changes, No change in appetite,No depression, No memory loss, No panic attacks and No Thoughts of harming yourself/Others Endo Endocrine: No cold intolerance, excessive sweating, fatigue, flushing, heat intolerance, increased thirst/drinking or increased hunger Aller/Imm Allergy/Immunologic: No itchy eyes, seasonal allergy symptoms, hives or wheezing Herbert/Lymp Hematologic/Lymphatic: No easy bleeding, easy bruising or enlarged lymph nodes Exam Const General: cooperative, comfortable and no acute distress Orientation: alert, awake and oriented x3 HENMT Head: normal to inspection, normocephalic and atraumatic Ears: hearing grossly normal bilaterally Eyes General: appearance normal, both eyes and all related structures Neck Neck: normal visual inspection, full ROM, no lymphadenopathy and supple Neck mass: No Thyroid: thyroid normal Resp Effort & Inspection: normal respiratory effort and able to speak in complete sentences Auscultation: Bilateral: Clear to Auscultation Cardio Rate: regular rate Rhythm: regular rhythm Heart Sounds: S1 normal and S2 normal GI Palpation: soft (Nontender, no palpable organomegaly) Neuro General: patient alert, patient awake, patient oriented x3, moves all extremities and CN's II-XI intact bilaterally Extrem General: no clubbing, cyanosis or edema Psych Appearance: grossly normal Mental Status: mental status grossly normal Mood: congruent mood Affect: normal affect Coding Level of Care Code Off vis,est,level 4 Diagnoses Anxiety and depression F41.9; F32.A Insomnia G47.00 Assessment and Plan Assessment and Plan (1) Anxiety and depression: Status: Acute (2) Insomnia: Status: Acute Medications: New trazodone 50 mg PO QHS PRN 30 tabs 2RF insomnia Changed From venlafaxine ER 37.5 mg PO QDAY 30 caps 0RF To venlafaxine ER 75 mg PO QDAY 90 caps 1RF 3 months Plan Will increase venlafaxine from 37.5 to 75 mg daily for better control. She was advised to call if she notes no significant change in mood despite increase in dose, she voiced understanding. Will also start on trazodone 50 mg nightly as needed for sleep. Hopefully, this also helps some with her mood as well. Follow-up in 3 months or sooner if needed. This note was generated with Lango dictation software. It may contain incorrectwords, spelling, and punctuation that were not noted in checking the note beforesigning. 01/25/25 0925 <Electronically signed by Grupo alston MD> Date _ Grupo Zavala MD Cosigner Signature: Date (if applicable) CC: ~ [facility] Work Phone: Summary Purpose Family History No Family History Records Found Relationship Condition Age at Onset Recorded Date/T isidro Not Specified Arthritis Unknown Fibromyalgia Unknown father Diabetes mellitus Unknown Hypertension Unknown Relationship Condition Age at Onset Recorded Date/T isidro Not Specified Arthritis Unknown Fibromyalgia Unknown father Diabetes mellitus Unknown Hypertension Unknown Depression Unknown Cerebrovascular accident (CVA) Unknown brother Bipolar I disorder Unknown Attempted suicide Unknown mother Depression Unknown Anxiety Unknown Advance Directives No Advanced Directives Records Found Advance Directive Response Recorded Date/ Time Advance Directives No October 13 9:55am Living Will No May 20 8:19pm Power of Gin Pole Operator No May 20, 2022 8:19pm Advance Directive Response Recorded Date/ Time Advance Directives No October 13 10:55am Chief Complaint and Reason for Visit Chief Complaint SORE THROAT/BILATERA L EAR PAIN RIGHT ANKLE INJURY ANKLE XRAY Urinary tract infection UTI NOT ANY BETTER COMPLAINT Reason for Visit Acute pharyngitis, u nspecified URI (upper respiratory infection) Right ankle sprain UTI (urinary tract infection) UTI (urinary tract infection) Chief Complaint Admit Date BILAT EAR PAIN/ST/COUGH August 14, 2024 11:00am EST NEW PT - [facility] SENT October 19, 2024 8 :28am Reason for Visit Admit Date Acute sinusitis August 14, 2024 11: 00am Acute pharyngitis, unspecified October 8:28am Acute sinusitis October 19, 2024 8:28 am Bilateral acute otitis media October 19, 2024 8:28am Bronchitis October 19, 2024 8:28 am Dysfunction of both eustachian tubes Oct 8:28am Encounter for screening for COVID-19 Oct 8:28am Pharyngitis October 19, 2024 8:28 am Right ankle sprain October 19, 2024 8:28 am Sore throat October 19, 2024 8:28 am Strain of wrist, right October 19, 2024 8 :28am URI (upper respiratory infection) October 042024 8:28am UTI (urinary tract infection) October 19, 2024 8:28am Reason for Visit Admit Date Acute sinusitis August 14, 2024 11: 00am Anxiety and depression October 19, 2024 8 :28am Obesity October 19, 2024 8:28 am Preventative health care October 19, 2024 8:28am Chief Complaint Admit Date BILAT EAR PAIN/ST/COUGH August 14, 2024 11:00am EST NEW PT - [facility] SENT October 19, 2024 8 :28am CONCERN FOR UTI October 22, 2024 4:42 pm Reason for Visit Admit Date Acute sinusitis August 14, 2024 11: 00am Anxiety and depression October 19, 2024 8 :28am Obesity October 19, 2024 8:28 am Preventative health care October 19, 2024 8:28am Cystitis October 22, 2024 4:42 pm Chief Complaint Admit Date EST NEW PT - [facility] SENT October 19, 2024 8 :28am CONCERN FOR UTI October 22, 2024 4:42 pm 3 month January 25, 2025 8:50am Reason for Visit Admit Date Anxiety and depression October 19, 2024 8 :28am Obesity October 19, 2024 8:28 am Preventative health care October 19, 2024 8:28am Cystitis October 22, 2024 4:42 pm Anxiety and depression January 25, 8:50am Insomnia January 25, 2025 8:50am Additional Source Comments INFORMATION SOURCE (unrecogn ized section and content) DATE CREATED AUTHOR 03/28/2019 [facility] DATE CREATED AUTHOR AUTHOR'S ORGANIZ ATION 04/02/2023 [facility] DATE CREATED AUTHOR AUTHOR'S ORGANIZ ATION 02/25/2025 [facility] Goals (unrecognized section and content) Goals may be documented in a n alternate sectionGoals may be documented in an alternate sectionGoals may be documented in an alternate sectionGoals may be documented in an alternate sectionGoals may be documented in an alternate sectionGoals may be documented in an alternate sectionGoals may be documented in an alternate section Care Teams (unrecognized sec tion and content) Team Status: Active Member Role Status Dates No Primary Care Physician Family Provider Active No Primary Care Physician Primary Care Provider Active Team Status: Inactive Member Role Status Dates No Primary Care Physician Primary Care Provider, Refer ring Provider Active Jorge JACKSON PA Attending Provider Active Team Status: Inactive Member Role Status Dates No Primary Care Physician Primary Care Provider Active MANUEL Cam Active Dr. Oziel Whittington MD Attending Provider Active Team Status: Inactive Member Role Status Dates No Primary Care Physician Primary Care Provider, Refer ring Provider Active Dez Nolen [employer]SEM[employer] LINE BRAZER, ASSEM[employer] LINE BRAZER-C Attending Provider Active Team Status: Inactive Member Role Status Dates No Primary Care Physician Primary Care Provider, Refer ring Provider Active MANUEL Ford Attending Provider Active Team Status: Inactive Member Role Status Dates No Primary Care Physician Primary Care Provider Active MANUEL Ford Attending Provider Active Team Status: Inactive Member Role Status Dates No Primary Care Physician Primary Care Provider Active Dr. Kimberlee Smith DO Attending Provider, Emergency Pro vider Active Team Status: Active Member Role Status Dates No Primary Care Physician Family Provider Active Dr. Grupo Zavala MD Primary Care Provider Active Team Status: Inactive Member Role Status Dates No Primary Care Physician Primary Care Provider Active Start: August 14, 2024 End: August 14, 2024 No Primary Care Physician Referring Provider Active Start: August 14, 2024 End: August 14, 2024 MANUEL Ford Attending Provider Active Sta rt: August 14, 2024 End: August 14, 2024 Team Status: Inactive Member Role Status Dates No Primary Care Physician Primary Care Provider Active Start: October 19, 2024 End: October 19, 2024 No Primary Care Physician Referring Provider Active Start: October 19, 2024 End: October 19, 2024 Dr. Grupo Zavala MD Attending Provider Active Start: October 19, 2024 End: October 19, 2024 Team Status: Active Member Role Status Dates Dr. Grupo Zavala MD Primary Care Provider Active Start: October 19, 2024 Dr. Grupo Zavala MD Attending Provider Active Start: October 19, 2024 Dr. Grupo Zavala MD Referring Provider Active Start: October 19, 2024 Team Status: Inactive Member Role Status Dates Dr. Grupo Zavala MD Primary Care Provider Active Start: October 19, 2024 End: October 19, 2024 Dr. Grupo Zavala MD Attending Provider Active Start: October 19, 2024 End: October 19, 2024 Dr. Grupo Zavala MD Referring Provider Active Start: October 19, 2024 End: October 19, 2024 Team Status: Inactive Member Role Status Dates Dr. Grupo Zavala MD Primary Care Provider Active Start: October 22, 2024 End: October 22, 2024 Dr. Grupo Zavala MD Referring Provider Active Start: October 22, 2024 End: October 22, 2024 MANUEL Ford Attending Provider Active Sta rt: October 22, 2024 End: October 22, 2024 Team Status: Active Member Role/Relationship Status Dates No Primary Care Physician Family Provider Active Dr. Grupo Zaavla MD Primary Care Provider Active Team Status: Inactive Member Role/Relationship Status Dates No Primary Care Physician Primary Care Provider Active Start: August 14, 2024 End: August 14, 2024 No Primary Care Physician Referring Provider Active Start: August 14, 2024 End: August 14, 2024 MANUEL Ford Attending Provider Active Sta rt: August 14, 2024 End: August 14, 2024 Team Status: Inactive Member Role/Relationship Status Dates No Primary Care Physician Primary Care Provider Active Start: October 19, 2024 End: October 19, 2024 No Primary Care Physician Referring Provider Active Start: October 19, 2024 End: October 19, 2024 Dr. Grupo Zavala MD Attending Provider Active Start: October 19, 2024 End: October 19, 2024 Team Status: Inactive Member Role/Relationship Status Dates Dr. Grupo Zavala MD Primary Care Provider Active Start: October 19, 2024 End: October 19, 2024 Dr. Grupo Zavala MD Attending Provider Active Start: October 19, 2024 End: October 19, 2024 Dr. Grupo Zavala MD Referring Provider Active Start: October 19, 2024 End: October 19, 2024 Team Status: Inactive Member Role/Relationship Status Dates Dr. Grupo Zavala MD Primary Care Provider Active Start: October 22, 2024 End: October 22, 2024 Dr. Grupo Zavala MD Referring Provider Active Start: October 22, 2024 End: October 22, 2024 MANUEL Ford Attending Provider Active Sta rt: October 22, 2024 End: October 22, 2024 Team Status: Inactive Member Role/Relationship Status Dates Dr. Grupo Zavala MD Primary Care Provider Active Start: October 23, 2024 End: October 23, 2024 MANUEL Ford Attending Provider Active Sta rt: October 23, 2024 End: October 23, 2024 MANUEL Ford Referring Provider Active Sta rt: October 23, 2024 End: October 23, 2024 Team Status: Active Member Role/Relationship Status Dates No Primary Care Physician Primary care physician Activ e Dr. Grupo Zavala MD Primary care physician Activ e Team Status: Inactive Member Role/Relationship Status Dates No Primary Care Physician Primary care physician Activ e Start: October 19, 2024 End: October 19, 2024 No Primary Care Physician Referring Provider Active Start: October 19, 2024 End: October 19, 2024 Dr. Grupo Zavala MD Attending physician Active Start: October 19, 2024 End: October 19, 2024 Team Status: Inactive Member Role/Relationship Status Dates Dr. Grupo Zavala MD Primary care physician Activ e Start: October 19, 2024 End: October 19, 2024 Dr. Grupo Zavala MD Attending physician Active Start: October 19, 2024 End: October 19, 2024 Dr. Grupo Zavala MD Referring Provider Active Start: October 19, 2024 End: October 19, 2024 Team Status: Inactive Member Role/Relationship Status Dates Dr. Grupo Zavala MD Primary care physician Activ e Start: October 22, 2024 End: October 22, 2024 Dr. Grupo Zavala MD Referring Provider Active Start: October 22, 2024 End: October 22, 2024 MANUEL Ford Attending physician Active St art: October 22, 2024 End: October 22, 2024 Team Status: Inactive Member Role/Relationship Status Dates Dr. Grupo Zavala MD Primary care physician Activ e Start: October 23, 2024 End: October 23, 2024 MANUEL Ford Attending physician Active St art: October 23, 2024 End: October 23, 2024 MANUEL Ford Referring Provider Active Sta rt: October 23, 2024 End: October 23, 2024 Team Status: Inactive Member Role/Relationship Status Dates Dr. Grupo Zavala MD Primary care physician Activ e Start: January 25, 2025 End: January 25, 2025 Dr. Grupo Zavala MD Attending physician Active Start: January 25, 2025 End: January 25, 2025 Dr. Grupo Zavala MD Referring Provider Active Start: January 25, 2025 End: January 25, 2025 FOR RECORDS PERTAINING TO PATIENTS WHO ARE OR HAVE BEEN ENROLLED IN A CHEMICAL DEPENDENCY/SUBSTANCEABUSE PROGRAM, SOME INFORMATION MAY BE OMITTED. This clinical summary was aggregated from multiple sources. Caution should be exercised in using it in the provision of clinical care. This summary normalizes information from multiple sources, and as a consequence, information in this document may materially change the coding, format and clinical context of patient data. In addition, data may be omitted in some cases. CLINICAL DECISIONS SHOULD BE BASED ON THE PRIMARY CLINICAL RECORDS. [employer] provides no warranty or guarantee of the accuracy or completeness of information in this document.
[2025-03-03 13:08] LABS: HPV APTIMA, High Risk Negative (Negative)
== END | disposition home or self-care (01) ==
LOC: LABSPEC 14:55
PROVIDERS: PCP Internal Medicine; Visit Provider Advanced Practice Midwife
DX: Z12.4 Encounter for screening for malignant neoplasm of cervix (principal)
CPT/HCPCS: 87624; 88175; G0145

== ENCOUNTER 2025-04-05 19:13 | Emergency (ER) | payer MEDICAID, SELFPAY ==
[2025-04-05 19:13] VITALS: BP 141/124; PULSE 115; RESP 17; TEMP 36.4; O2SAT 99; BMI 38.9
--- NOTE | 2025-04-05 19:40 | EKG12_ITS ---
Test Reason : GEN ILL Blood Pressure : */* mmHG Vent. Rate : 74 BPM Atrial Rate : 74 BPM P-R Int : 126 ms QRS Dur : 78 ms QT Int : 404 ms P-R-T Axes : 25 19 28 degrees QTcB Int : 448 ms Normal sinus rhythm Normal ECG Confirmed by Reuben Quezada ([id number]), newspaper photo editor LITA VALENCIA ([id number]) on 04/07/2025 8:41:47 AM Referred By: Confirmed By: Reuben Quezada
--- NOTE | 2025-04-05 19:42 | EX.ED.DYSGE1 ---
HPI History of Present Illness Chief Complaint: General Illness Narrative Narrative: Patient is a 29-year-old female presenting to the emergency department for 3 days of lightheadedness, nausea, vomiting and shortness of breath. Patient has a past medical history of anxiety, depression, obesity, PE when she was 7 years ago. Patient states that she was not feeling well on Saturday and then it was her sister's wedding and she drank heavily. States she woke up Saturday morning and felt much worse. She denies any sick contacts. She states that she took one of her mom Inderjit which did help and she was able to eat a little bit yesterday. States last time she vomited was this morning, nonbloody, nonbilious. She endorses some abdominal discomfort and uneasiness but no pain. She endorses feeling like she cannot catch her breath. Denies any chest pain. Denies any fever or chills. Denies headache. Denies dysuria or hematuria. Denies any diarrhea or constipation. Denies any drug use. No recent travel, hospitalizations or surgeries. No leg swelling. Denies any use of oral anticoagulation or current use of OCP/hormone therapy. [facility] Medical History Insomnia Anxiety and depression Obesity Preventative health care Right ankle sprain Acute pharyngitis, unspecified URI (upper respiratory infection) UTI (urinary tract infection) Pulmonary embolism Home Medications ?Medication ?Instructions ?Recorded ?Last Taken ?Type trazodone 50 mg tablet 50 mg PO QHS PRN insomnia #30 tabs 01/25/25 Unknown Rx venlafaxine 75 mg capsule,extended 75 mg PO QDAY 3 months #90 caps 01/25/25 Unknown Rx release 24 hr ondansetron 4 mg disintegrating 4 mg PO Q8H PRN PRN Nausea #10 tabs 04/05/25 Unknown Rx tablet Allergy/AdvReac Type Severity Reaction Status Date / Time metoclopramide (From Reglan) AdvReac Mild RESTLESS, Verified 04/05/25 19:17 ITCHING, FLUSHING Food Allergies: Uncoded AdvReac Vomiting Verified 04/05/25 19:17 Penicillins AdvReac Vomiting Verified 04/05/25 19:17 Family History Father Diabetes Hypertension Depression CVA (cerebral vascular accident) Brother Bipolar 1 disorder Suicide attempt Mother Depression Anxiety Suicide attempt Other Arthritis Fibromyalgia Surgical History History of 2 sections Social History household members: family current occupational status: unemployed Smoking Status: Never smoker alcohol intake: never substance use type: does not use caffeine: Yes (AM) Type: coffee what type of physical activity do you participate in: none seatbelt use: always do you feel safe at home: Yes additional social history: Jbxlwm-Kiusbzs-Vdqnucal Patient is stay at home mom ROS ROS ED ROS Narrative see HPI EXAM Physical Exam Narrative Exam Narrative: Vital signs: Reviewed General: Alert and oriented x 3. No acute distress. Well-appearing, nontoxic. HEENT: Head is normocephalic and atraumatic, sinuses nontender, pupils equal round and reactive. Nares are patent. Oropharynx and throat exams normal. Neck: Supple without lymphadenopathy nontender Cardiovascular: Tachycardic rate and regular rhythm, no murmurs. No rubs or gallops. Normal S1 and S2 Respiratory: Clear to auscultation bilaterally. No wheezes, rales, rhonchi Abdominal: Soft and nontender. Normal bowel sounds. No guarding or rebound. Nonsurgical abdomen Extremities: No lower extremity edema. No tenderness. No bruising. Normal range of motion. Normal sensation. Skin: No rash or redness. Neurological: Cranial nerves II through XII are grossly intact. Normal strength and sensation. Normal cerebellar function The rest of the physical exam is unremarkable Const Vital Signs: 04/05/25 19:13 04/05/25 19:38 04/05/25 19:48 Temperature 97.5 F L Temperature Source Oral Pulse Rate 115 H 96 Respiratory Rate 17 17 Respiratory Effort Normal Respiratory Pattern Normal Blood Pressure 141/124 H 133/96 H Blood Pressure Mean 129 108 Pulse Ox 99 100 Oxygen Delivery Method Room Air Room Air 04/05/25 21:13 04/05/25 22:51 Temperature 97.9 F Temperature Source Pulse Rate 69 69 Respiratory Rate 14 14 Respiratory Effort Respiratory Pattern Blood Pressure 125/78 H 125/78 H Blood Pressure Mean 93 93 Pulse Ox 100 100 Oxygen Delivery Method Room Air MDM MDM MDM Narrative Medical decision making narrative: Patient is a 29-year-old female presenting to the emergency department for nausea, vomiting, lightheadedness and feeling unwell for the past 3 days. Patient was seen and examined. Vitals are stable, she is mildly tachycardic at 115, normal respirations of 17, afebrile saturating 99% on room air. Initial blood pressure of 141/124 which will be rechecked. She is well-appearing, nontoxic, resting in bed. Differential includes but is not limited to: Dehydration, gastroenteritis, alcoholic gastritis, ACS, PE, pneumonia, URI Patient did drink heavily before her symptoms started. She was feeling unwell that day. I think the patient's tachycardia is from dehydration from her vomiting and poor p.o. intake. Will give her fluids and Zofran. Will also give her Pepcid for possible gastritis from alcohol use. Will obtain labs EKG, chest x-ray and troponin given the patient's shortness of breath. Will also obtain a D-dimer given her history of pulmonary embolism. EKG shows normal sinus rhythm with no ischemic changes. No ST elevation or depression. No dysrhythmia. CBC with no leukocytosis and normal hemoglobin. CMP with no significant abnormalities. Troponin within normal limits. Lipase within normal limits. D-dimer is very mildly elevated, CTA of the chest ordered. Urinalysis with bacteria, no other signs of infection. CTA of the chest is unremarkable with no evidence of acute PE or acute process in the chest. Patient was reevaluated after fluid bolus and Zofran and Pepcid. She states that she is feeling much improved. States that her stomach is feeling better and she is no longer nauseous. Heart rate has improved after fluids to normal sinus rhythm at 69 patient and significant other were updated on the negative findings. She was able to tolerate p.o. here. I recommended that she drink lots of fluids at home and will prescribe her Zofran to take as needed for nausea and vomiting. Likely viral gastroenteritis versus alcoholic gastritis from her binge drinking this weekend. All questions answered. Patient discharged from the Emergency Department. I do not feel that the patient's evaluation reveals any acute reason for admission at this time. I instructed them to either follow-up with their primary care physician or promptly return to the Emergency Department for reevaluation should symptoms worsen or new symptoms develop. I explained what symptoms would indicate the need to return to the emergency department. Shared decision making was used. The patient voiced understanding of the treatment plan and is agreeable with it. Clinical impression Acute alcoholic gastritis Gastroenteritis History & Record Review Discussion w/independent historian: Patient and Significant other Lab Data Attestation: I reviewed the patient's lab results. Labs: Laboratory Results - last 24 hr 04/05/25 04/05/25 19:50 21:29 WBC 8.8 RBC 4.54 Hgb 12.3 Hct 38.4 MCV 84.6 MCH 27.1 MCHC 32.0 RDW Std Deviation 41.4 RDW Coeff of Fco 13.3 Plt Count 437 MPV 10.2 Immature Gran % (Auto) 0.300 Neut % (Auto) 63.5 Lymph % (Auto) 26.9 Hanson % (Auto) 5.6 Eos % (Auto) 3.1 Baso % (Auto) 0.6 Absolute Neuts (auto) 5.6 Absolute Lymphs (auto) 2.36 Nucleated RBC % 0 D-Dimer Quant (PE/DVT) 0.57 H* Sodium 140 Potassium 4.0 Chloride 104 Carbon Dioxide 24.8 Anion Gap 12 BUN 10 Creatinine 0.72 Estim Creat Clear Calc 153.12 Est GFR (MDRD) Non-Af 116 BUN/Creatinine Ratio 14.0 Glucose 102 H Calcium 8.6 Total Bilirubin 0.18 AST 17 ALT 18 Alkaline Phosphatase 84 Troponin T High Sens < 6 Total Protein 7.1 Albumin 3.9 Globulin 3.2 Albumin/Globulin Ratio 1.2 Lipase 30 Serum , Qual NEGATIVE Urine Color Yellow Urine Clarity Clear Urine pH 7.0 Ur Specific Watson 1.005 Urine Protein 15 H Urine Glucose (UA) Normal Urine Ketones Negative Urine Occult Blood Negative Urine Nitrite Negative Urine Bilirubin Negative Urine Urobilinogen Normal Ur Leukocyte Esterase Negative Urine RBC 0 SEEN Urine WBC 0 SEEN Ur Squamous Epith Cells 0-5 SEEN Urine Bacteria 2+ Urine Mucus 0 SEEN Radiography Diagnostic Testing: Clinical Impression(s) from Imaging Studies Chest X-Ray 04/05/25 20:07 IMPRESSION: No acute cardiopulmonary disease. Reading Location: [id number] Chest CTA 04/05/25 20:21 IMPRESSION: 1. Unremarkable exam with no evidence of acute pulmonary embolus or acute process in the chest. Reading Location: [id number] Discharge Plan Triage Chief Complaint: General Illness ED Provider: Rachna Reddy Dx/Rx/DC Orders Clinical Impression: Gastroenteritis, Acute alcoholic gastritis Instructions: ED Gastritis (Adult), ED Gastroenteritis, Viral (Adult) Prescriptions: New ondansetron 4 mg tablet,disintegrating 4 mg PO Q8H PRN PRN (Reason: Nausea) Qty: 10 0RF No Action venlafaxine 75 mg capsule,extended release 24hr 75 mg PO QDAY 90 Days Qty: 90 1RF trazodone 50 mg tablet 50 mg PO QHS PRN (Reason: insomnia) Qty: 30 2RF Primary Care Provider: Grupo Zavala Referrals: Grupo Zavala MD [Primary Care Provider, Internal Medicine] - As soon as possible Activity Restrictions/Additional Instructions: Take the Zofran every 6-8 hours for nausea and vomiting. Drink lots of fluids at home. Your evaluation in the Emergency Department did not reveal any acute reason for admission. However, I want to emphasize that you may be early in the course of a disease process or illness even if it is not present. For this reason you should follow-up within 24 hours for reevaluation with either your primary care physician or if necessary back here in the Emergency Department. You should return to the Emergency Department immediately if your symptoms worsen or new symptoms develop. Print Language: Ivorian Disposition Disposition: Home, Self Care Discharge Date/Time: 04/05/25 22:52
[2025-04-05 19:48] VITALS: BP 133/96; PULSE 96; RESP 17; O2SAT 100
[2025-04-05] MEDS: 0.9% Normal Saline (1000mL) 1,000 ML 1000 ML IV (19:48)
[2025-04-05 20:00] LABS: Hematocrit 38.4 % (37-47); Hemoglobin 12.3 g/dL (12.0-15.0); Immature Granulocytes Count 0.030 X10^3/uL (0.0-0.0); Mean Corp Hgb Conc 32.0 g/dL (32-36); Mean Corpuscular Volume 84.6 fL (81-99); Mean Platelet Vol. 10.2 fl (6.2-12.0); NRBC Flagged by Analyzer 0 % (0-5); Platelet Count 437 K/mm3 (150-450); RBC Distribution Width CV 13.3 % (11.6-14.6); RBC Distribution Width SD 41.4 fl (35.1-43.9); Red Blood Count 4.54 M/mm3 (4.2-5.4); White Blood Count 8.8 K/mm3 (4.4-11.0)
--- NOTE | 2025-04-05 20:07 | RAD_ITS ---
PROCEDURE: CHEST PA AND LATERAL 04/05/2025 REASON FOR EXAM: SOB TECHNIQUE: Procedure Code: RADCXR Modality: DX Procedure: CHEST PA AND LATERAL COMPARISON: None. FINDINGS: Lungs/Pleura: Clear. No focal consolidation or pleural effusion. Heart/Mediastinum: Within normal limits. Bones/Soft tissues: Minimal degenerative changes of the spine. RAD/Chest PA and Lateral IMPRESSION: No acute cardiopulmonary disease. Reading Location: [id number]
[2025-04-05 20:12] LABS: Internal QC Validated? YES +Cl - CLEAR BKGD; Pregnancy, Serum, hCG Quali. NEGATIVE Negative; Record Kit Lot#, Serum Preg. 0000980607
[2025-04-05 20:16] LABS: D-Dimer Quantitative (DVT/PE) 0.57 FEU/ug/m (0.27-0.49)
[2025-04-05 20:21] LABS: Troponin T High Sensitivity < 6 ng/L (<=14)
--- NOTE | 2025-04-05 20:21 | CT_ITS ---
PROCEDURE: CTA CHEST W/WO CONTRAST 04/05/2025 REASON FOR EXAM: ELEVATED DDIMER TECHNIQUE: Procedure Code: [id number] Modality: CT Procedure: CTA CHEST W/WO CONTRAST Multiplanar Sagittal and Coronal images were obtained. CONTRAST: Isovue 370 VOLUME: 100 mL One or more dose reduction techniques were used (e.g., Automated exposure control, adjustment of the mA and/or kV according to patient size, use of iterative reconstruction technique). RADIATION DOSE SUMMARY: CTDlvol: 15.8 mGy DLP: 539.68 mGycm COMPARISON: None FINDINGS: Thoracic Aorta: Within normal limits Heart: No cardiomegaly or pericardial effusion. Pulmonary Vessels: No evidence of pulmonary embolus. Hardware: None Lymph nodes: No enlarged lymph nodes in the mediastinum or hilar regions. No axillary lymphadenopathy. Lungs and Airways: Paraseptal emphysema. Otherwise unremarkable. Pleura: No pleural effusion. Upper Abdomen: Unremarkable Bones: Unremarkable CT/CTA Chest W/WO Contrast IMPRESSION: 1. Unremarkable exam with no evidence of acute pulmonary embolus or acute proce ss in the chest. Reading Location: [id number]
[2025-04-05 20:22] LABS: AST(SGOT) 17 U/L (<=31); Alanine Aminotransfer ALT/SGPT 18 U/L (<=34); Albumin, Serum 3.9 g/dL (3.5-5.0); Alkaline Phosphatase 84 U/L (35-104); Anion Gap 12 (5-15); BUN 10 mg/dL (4-19); BUN/Creat Ratio 14.0 RATIO (10-20); Calcium,Total 8.6 mg/dL (7.6-11.0); Carbon Dioxide 24.8 mmol/L (21.0-32.0); Chloride 104 mmol/L (98-108); Estimated Creatinine Clearance 153.12 ml/min (50-250); Globulin 3.2 g/dL (2.2-4.2); Glucose 102 mg/dL (70-99); Lipase 30 U/L (13-75); Potassium 4.0 mmol/L (3.3-5.1)
--- OUTSIDE RECORDS SUMMARY | 2025-04-05 20:23 | XMS RPT_ITS | CCD ---
Author Organization [facility] Care Team Providers Care Attorney Lawyer Name Role Phone Care Physician, No Primary Primary Care Provider Unavailable Care Physician, No Primary Referring Provider Un available MANUEL Goodman Attending Provider Dr. Oziel Whittington Attending Provider Roof CHECKING DEPARTMENT SUPERVISOR, CHECKING DEPARTMENT SUPERVISOR-Rain Ballard Attending Provider MANUEL Santiago Attending Provider REFERRED, SELF Referring Unavailable JEROMY LIZARRAGA Primary Care Unavailable HEIDI LONG Attending Unavailable Care Physician, No Primary Primary Care Provider Unavailable Care Physician, No Primary Referring Provider Un available Nathan Santiago Attending Provider Lucas SHERWOOD, Dr. Lombardo Attending Provider Lucas SHERWOOD, Dr. Lombardo Primary Care Provider Lucas SHERWOOD, Dr. Lombardo Referring Provider Nathan Santiago Referring Provider Care Physician, No Primary Primary Care Physicsu n Unavailable Care Physician, No Primary Referring Provider Un available Lucas SHERWOOD, Dr. Lombardo Attending Physician Lucas SHERWOOD, Dr. Lombardo Primary Care Physician Nathan Santiago Attending Physician Salome Choudhary Attending Unavailable Oleghe, Efewongbe Referring Unavailable Oleghe, Efewongbe Primary Care Unavailable Oleghe, Efewongbe Attending Unavailable Oleghe, Efewongbe Referring Unavailable Oleghe, Efewongbe Primary Care Unavailable Oleghe, Efewongbe Primary Care Unavailable Oleghe, Efewongbe Referring Unavailable Nathan Santiago Attending Unavailable Care Physician, No Primary Referring Unava ilable Care Physician, No Primary Primary Care Unava ilable Oleghe, Efewongbe Attending Unavailable Care Physician, No Primary Referring Unava ilable Nathan Santiago Attending Unavailable Care Physician, No Primary Primary Care Unava ilable Care Physician, No Primary Referring Unava ilable Jorge Goodman Attending Unavailable Care Physician, No Primary Primary Care Unava ilable Care Physician, No Primary Primary Care Unava ilable Care Physician, No Primary Referring Unava ilable Nathan Santiago Attending Unavailable Salome Choudhary Attending Unavailable Oleghe, Efewongbe Primary Care Unavailable Oleghe, Efewongbe Primary Care Unavailable Nathan Santiago Attending Unavailable Nathan Santiago Referring Unavailable Oleghe, Efewongbe Primary Care Unavailable Oleghe, Efewongbe Attending Unavailable Oleghe, Efewongbe Referring Unavailable Allergies Allergy Classification Reported Allergen(s) Allergy Type Date of Onset Reaction(s) Facility (7 sources) Metoclopramide Drug Allergy 05-20-19 RESTLESS, ITCHING, FLUSHING [facility] Comment on above: restlessness, itchin g, flushing (7 sources) Penicillins Propensity to adverse reactions 05-20-19 Vomiting [facility] (2 sources) bratwurst Propensity to adverse reactions 05-20-19 Vomiting [facility] (1 source) Amoxicillin; Translations: [AMOXICILLIN] Drug [facility] Rep[facility] (6 sources) Food Allergies: Uncoded; Translations: [Food Allergies: Uncoded] Propensity to adverse reactions 10-20-19 Vomiting [facility] Comment on above: bratwurst (1 source) Metoclopramide Drug Allergy 02-27-20 [facility] Repository (1 source) Penicillins Drug allergy (disorder) 02-27-20 [facility] Repository Medications Current Medications Medication Drug Class(es) Dates Sig (Normalized) Sig (Original) traZODone hydrochloride 50 mg oral tablet (1 source) Serotonin Reuptake Inhibitor Start: 01-25-2025 take 1 tablet by mouth at bedtime as needed Trazodone 50 mg tablet Active 50 mg PO AT BEDTIME as needed for insomnia January 255 12:00am Complies with drug therapy 24 hr [...] HOURS NEEDED as needed for Pain 30 0 October 15, 2016 12:00am October [...] oral tablet (5 sources) alpha-Adrenergic Agonist, Uncompetitive D-akffhn-Y-aspartate Receptor Antagonist, Sigma-1 Agonist Start: 04-28-2024 End: 08-14-2024 take 4 tablets by mouth every twenty-four hours as needed Shfifdsvmeugmgy-Ci-Kydlqjuozrg (Capmist Dm) 60-15-400 mg tablet Discontinued 1 {tbl} PO EVERY 4-6 HOURS as needed for cold symptoms April 28, 2024 1:00am August 14, 2024 11:09am do not exceed 4 doses per 24 hrs docusate sodium 50 mg / sennosides, fci 8.6 mg oral tablet (7 sources) Start: 10-15-2016 End: 10-29-2017 Sennosides-Docusate Sodium 1 TABLET tablet Discontinued 1 - 2 {tbl} PO DAILY as needed for Constipation 30 October 15, 2016 12:00am October 29, [...] tablet Discontinued 10 mg PO daily 30 October 19, 2024 12:00am November 16, 2024 11:43am Take 1/2 tablet x 2 weeks then increase to 1 tablet daily Heparin Injection (7 sources) Start: 10-03-2016 End: 10-15-2016 Heparin Injection Discontinued 95856 U SQ TWICE A DAY October 03, 2016 12:00am October 15, 2016 8:39am hx pe this Start: 10-03-2016 End: 10-15-2016 [place] 97545 U SQ TWICE A DAY October 03, 2016 12:00am October 15, 2016 8:39am Start: 10-03-2016 End: 10-15-2016 Heparin [place] Dis[place]u [place] 82262 UNITS SQ TWICE A DAY October 02, [...] source) Anticholinergic Start: 08-14-2024 End: 10-19-2024 Ipratropium [place] 21 mcg (0.03 %) spray,non-aerosol Discontinued 2 NMA INTRANASAL 2 to 3 times per day as needed for postnasal drainage August 14, 2024 12:00am October 19, 2024 8:39am administer into each nostril Ipratropium [place] 21 mcg (0.03 %) spray,non-aerosol (4 sources) Start: 08-14-2024 End: 10-19-2024 Ipratropium [place] 21 mcg (0.03 %) spray,non-aerosol Discontinued 2 NMA INTRANASAL 2 to 3 times per day as needed for postnasal drainage August 14, 2024 12:00am October 19, 2024 8:39am administer into each nostril Start: 08-14-2024 End: 10-19-2024 Ipratropium [place] 21 mcg ( 0.03 %) spray,non-aerosol Discontinued 2 NMA INTRANASAL 2 to 3 times per day as needed for postnasal drainage August 14, 2024 12:00am October 19, 2024 8:39am administer into each nostril levoFLOXacin 500 mg oral tablet (5 sources) Quinolone Antimicrobial Start: 05-18-2024 End: 08-14-2024 take 1 tablet by mouth every twenty-four hours Levofloxacin 500 mg tablet Discontinued 500 mg PO Q24H 10 0 May 18, 2024 1:00am August 14, 2024 11:09am meloxicam 15 mg oral tablet (7 sources) Nonsteroidal Anti-inflammatory Drug Start: 09-30-2018 End: 04-28-2024 Meloxicam 15 mg tablet Discontinued PO 24 September 30, 2018 12:00am April 28, [...] 30, 2014 12:00am October 29, 2017 10:29am Vit,Tghm80-Wfjj-Uxepr (4 sources) Start: 10-15-2016 End: 10-29-2017 take 1 tablet by mouth once daily Vit,Zyjq69-Zajp-Irsyd Discontinued 1 TABLET PO DAILY@1200 October 14, 2016 11:00pm October 29, 2017 9:29am Start: 11-30-2014 End: 10-29-2017 take 1 tablet by mouth once daily Vit,Dmqk77-Sacc-Gpynu Discontinued 1 TABLET PO DAILY November 29, 2014 11:00pm October 29, 2017 9:29am Vit,Nxal36-Aogl-Oeibm 1 TABLET tablet (8 sources) Start: 10-15-2016 End: 10-29-2017 take 1 tablet by mouth once daily Vit,Xhfu27-Khrz-Kefxf 1 TABLET tablet Discontinued 1 {tbl} PO DAILY@1200 0 October 15, 2016 12:00am October 29, 2017 10:29am Start: 10-15-2016 End: 10-29-2017 take 1 tablet by mouth once daily Vit,Ewzi91-Mvym-Pghjr 1 TABLET tablet Discontinued 1 {tbl} PO DAILY@1200 October 15, 2016 12:00am October 29, 2017 10:29am Start: 11-30-2014 End: 10-29-2017 take 1 tablet by mouth once daily Vit,Jytf77-Aeut-Uebln 1 TABLET tablet Discontinued 1 {tbl} PO DAILY November 30, 2014 12:00am October 29, 2017 10:29am Start: 11-30-2014 End: 10-29-2017 take 1 tablet by mouth once daily Vit,Hdcq08-Rapj-Hmgxh 1 TABLET tablet Discontinued 1 {tbl} PO [...] unspecified; Translations: [Obesity, unspecified] Onset: 10-19-2024 Chronic Other screening for suspected conditions (not mental disorders or infectious disease) (1 source) Encounter for screening for malignant neoplasm of cervix; Translations: [Encounter for screening for malignant neoplasm of cervix] Onset: 03-09-2025 Episodic Otitis media and related conditions (14 sources) [...] Test Name Value Interpretation Reference Range Facility PAP IG HPV APTIMA 16/18,45on 03-03-2025 ADEQ Comment Normal . [facility] Comment on above: Order Comment: Speci men Comment: [id number] Specimen Comment: No. of containers..01 ThinPrep Vial Result Comment: Sati sfactory for evaluation. Endocervical and/or squamous metaplastic cells (endocervical component) are present. Performed By: #### L 7400.0280 #### [facility] [address] [place], [place], [id number] COMM . Normal . [facility] Comment on above: Order Comment: Speci men Comment: [id number] Specimen Comment: No. of containers..01 ThinPrep Vial Performed By: #### L 7400.0280 #### [facility] [address] [place], [place], [id number] COMMENT Comment Normal . [facility] Comment on above: Order Comment: Speci men Comment: [id number] Specimen Comment: No. of containers..01 ThinPrep Vial Result Comment: This liquid based ThinPrep(R) pap test was interpreted using the [employer](R) Genius(TM) Cervical Algorithm whole slide imaging system. Performed By: #### L 7400.0280 #### [facility] [address] [place], [place], [id number] DIAG Comment Normal . [facility] Comment on above: Order Comment: Speci men Comment: [id number] Specimen Comment: No. of containers..01 ThinPrep Vial Result Comment: NEGA TIVE FOR INTRAEPITHELIAL LESION OR MALIGNANCY. Performed By: #### L 7400.0280 #### [facility] [address] [place], [place], [id number] HPV APTIMA, HR Negative Normal Negative [facility] Comment on above: Order Comment: Speci men Comment: [id number] Specimen Comment: No. of containers..01 ThinPrep Vial Result Comment: This nucleic acid amplification test detects fourteen high- risk HPV types (16,18,31,33,35,39,45,51,52,56,58,59,66,68) without differentiation. Performed By: #### L 7400.0280 #### [facility] [address] [place], [place], [id number] HPV Kimberly Rfx Comment Normal . [facility] Comment on above: Order Comment: Speci men Comment: [id number] Specimen Comment: No. of containers..01 ThinPrep Vial Result Comment: Crit ersu not met, HPV Genotype not performed. Performed at: [facility] - [address] [id number] Gel Coater: Yumiko Marshall MD, Phone: [phone] Performed at: =[facility] - [facility] [address] [id number] Gel Coater: Yumiko Marshall MD, Phone: [phone] Performed By: #### L 7400.0280 #### [facility] [address] [place], [place], [id number] PAPSMR Comment Normal . [facility] Comment on above: Order Comment: Speci men Comment: [id number] Specimen Comment: No. of containers..01 ThinPrep Vial Result Comment: The Pap smear is a screening test designed to aid in the detection of premalignant and malignant conditions of the uterine cervix. It is not a diagnostic procedure and should not be used as the sole means of detecting cervical cancer. Both false-positive and false-negative reports do occur. Performed By: #### L 7400.0280 #### [facility] [address] [place], [place], [address] PERFORM Comment Normal . [facility] Comment on above: Order Comment: Speci men Comment: [id number] Specimen Comment: No. of containers..01 ThinPrep Vial Result Comment: Jose Reno, Security Operations Center Analyst (ASCP) Performed By: #### L 7400.0280 #### [facility] [address] [place], [place], [address] [facility] Office Visit Reporton 02-26-2025 [facility] Office Visit Report [facility] [address], [address] [place] [address] OFFICE VISIT Date of Service: 02/26/25 MR#: [id number] Acct: [id number] Name: KRISTEN CHRISTY Lora Rep #: [id number] : 1995 Provider: RODRIGO Lloyd ams Age/Sex: 29/F Location: [facility] [place] Status: Signed Intake Vital Signs 10/19/24 08:38 01/25/25 08:59 02/26/25 14:14 02/26/25 14:15 Height 5 ft 8 in 5 ft 8 in 5 ft 9 in 5 ft 8 in Weight: 252 lb 250 lb 6 oz BMI 38.2 36.9 BP 110/80 125/85 H Blood Pressure Location Lt brachial Position Sitting Respiration 16 Pulse 94 Pulse Source Monitor Temp 98.0 F Pulse Oximetry (%) 99 Oxygen Delivery Method room air Intake Visit Reasons: IUD Removal (BIM) Chief Complaint: IUD Removal Chin Strap Sewer Required: No Is patient in pain?: No Allergies metoclopramide (From Reglan) Adverse Reaction (Mild, Verified 02/26/25 14:14) RESTLESS, ITCHING, FLUSHING Food Allergies: Uncoded Adverse Reaction (Verified 02/26/25 14:14) Vomiting Penicillins Adverse Reaction (Verified 02/26/25 14:14) Vomiting Medications ???Medication ???Instructions ???Recorded ???Confirmed ???Type trazodone 50 mg tablet 50 mg PO QHS PRN insomnia #30 tabs 01/25/25 02/26/25 Rx venlafaxine 75 mg capsule,extended 75 mg PO QDAY 3 months #90 caps 01/25/25 02/26/25 Rx release 24 hr Is last menstrual period known: Yes Last Menstrual Period: 02/20/25 Post menopausal: No Patient : No : No [facility] History Insomnia Anxiety and depression Obesity Preventative health [...] safe at home: Yes additional social history: Sdxocd-Spgryep-Xbyif estiven Patient is stay at home mom History 2 Elective abortions Hx Para 2 Spontaneous abortions Hx # Term Pregnancies Ectopic pregnancies Hx # Pregnancies Multiple births # of living children Past Pregnancies Del. Date Name GA/Weeks Outcome Route Bth Weight Infant Gen Labor Lgth Anesthesia Del Locatn Provider FOB 11/30/14 Toney 37 live - full term 5lbs ?oz Male spinal [facility] Dr. Lorenzo Quintero 10/12/16 Ananya 40 live - full term 6lbs 13oz Female spinal [facility] Dr. Bridget Quintero Delivery Date: 11/30/14 Last Updated by: Bev Porter Breech Delivery Date: 10/12/16 Last Updated by: Bev Porter PE during HPI IUD Removal (BIM) Details: KRISTEN CHRISTY is a 29 year old who presents for IUD removal. No longer needed due to having vasectomy. pap 9+ years overdue-done today. Female Reproductive History Last Menstrual Period: 02/20/25 ROS Const Constitutional: Reports system reviewed and no additional complaints, except as documented Cardio Card: Reports system reviewed and no additional complaints, except as documented Resp Resp: Reports system reviewed and no additional complaints, except as documented GI GI: Reports system reviewed and no additional complaints, except as documented : Reports system reviewed and no additional complaints, except as documented; Denies difficulty voiding, dysuria or urinary frequency Skin Skin/Breast: Reports system reviewed and no additional complaints, except as documented Neuro Neuro: Reports system reviewed and no additional complaints, except as documented Psych Psych: Reports system reviewed and no additional complaints, except as documented Exam Const General: cooperative, healthy appearing, comfortable and no acute distress Resp Effort Inspection: normal respiratory effort, able to speak in complete sentences and symmetric chest movement GI Inspection: normal to inspection Palpation: soft External Female Exam: normal external appearance and normal appearance of the urethra Urethra: normal appearance of the urethra Speculum Exam - Vagina: normal appearance of (more content not included)... Normal [facility] Internal Medicine Office Vis sarah 01-25-2025 Internal Medicine Office Visit [facility] [address] [place] [address] [place] [address] OFFICE VISIT Date of Service: 01/25/25 MR#: [id number] Acct: [id number] Name: KRISTEN CHRISTY Rep #: [id number] : 1995 Provider: Dr. Grupo guaman MD Age/Sex: 29/F [place] [facility] [place] [facility] [place] Status: Signed Intake Vital Signs 10/19/24 08:38 [...] caps 01/25/25 01/25/25 Rx release 24 hr PFS Medical History (Updated 01/25/25 @ 09:23 by [...] sleep aid in the form of an cxce-evp-fmoxqzu drink helps her fall asleep. She sleeps [...] speech, behavioral (more content not included)... Normal [facility] Urine Cultureon 10-25-2024 URC Mixed Gram Positive Organisms [place] Count 25,000-50,000 MIXC Mixed contaminants. Submit a new specimen if indicated. Normal [facility] Comment on above: Performed By: #### M 100.2200 #### [facility] Laboratory [address] [place], [address] Urine cultureOrdered By: Abbe Ferrer on 10-23-2024 Bacteria identified Cx Nom (U) Positive Abnormal [facility] Laboratory - Chemistry and C hemistry - challengeOrdered By: Nathan Ferrer on 10-22-2024 HCG ( test) Ql (U) Negative [facility] Bilirubin Ql (U) Negative [facility] Glucose Ql (U) Negative [facility] Ketones Ql (U) Negative [facility] pH (U) 6.0 [pH] [facility] Specific gravity (U) [Rel density] 1.020 [facility] Urobilinogen (U) [Mass/Vol] Negative [facility] Laboratory - Hematology and Cell countsOrdered By: Nathan Ferrer on 10-22-2024 Hemoglobin Ql (U) Trace [facility] Laboratory - Specimen inform ationOrdered By: Nathan Ferrer on 10-22-2024 Clarity (U) Clear [facility] Color (U) Yellow [facility] Laboratory - UrinalysisOrder ed By: Nathan Ferrer on 10-22-2024 Nitrite Ql (U) Negative [facility] Protein Ql (U) Trace [facility] No Panel InformationOrdered By: Nathan Ferrer on 10-22-2024 Urine Leukocytes Positive [facility] Urine Non-Hemolyzed Blood Negative [facility] Urgent Care Visit Reporton 0 10-22-2024 Urgent Care Visit Report [facility] [address], [address] [place] [address] OFFICE VISIT Date of Service: 10/22/24 MR#: [id number] Acct: [id number] Name: KRISTEN CHRISTY Rep #: [id number] : 1995 Provider: MANUEL Griffith Age/Sex: 29/F [place] [facility] [place] [facility] [place] Status: Signed Intake Vital Signs 10/19/24 08:38 [...] UTI Chief Complaint: dysuria, back pain, frequency Chin Strap Sewer Required: No Is patient in pain?: Yes [...] fever, blood in urine. concern for UTI PFSH Medical History (Updated 10/22/24 @ 17:01 by Nathan JACKSON, PA) Anxiety and depression Obesity Preventative health care [...] safe at home: Yes additional social history: Ixadep-Yrixkln-Ohgyu estiven Patient is stay at home mom [...] Umana on 10/22/24 16:58 Off Ur Spec [place] 1.020 Last Edit by Mirella Umana on [...] New nitrofurantoin (more content not included)... Normal [facility] Comprehensive Metabolic Prof gale 10-20-2024 Albumin [Mass/Vol] 4.0 g/dL Normal 3.5-5.0 [facility] Comment on above: Performed By: #### L 501.9520, L100.0100, L500.4050, L503.0106, L506.0400, L500.4100, L501.9985 #### [facility] [address] [place], [address] Albumin/Globulin [Mass ratio] 1.2 {ratio} Normal 0.9-2.4 [facility] Comment on above: Performed By: #### L 501.9520, L100.0100, L500.4050, L503.0106, L506.0400, L500.4100, L501.9985 #### [facility] [address] [place], [address] ALK PHOS 82 U/L Normal 35-104 [facility] Comment on above: Performed By: #### L 501.9520, L100.0100, L500.4050, L503.0106, L506.0400, L500.4100, L501.9985 #### [facility] [address] [place], [address] ALT [Catalytic activity/Vol] 25 U/L Normal <=34 [facility] Comment on above: Performed By: #### L 501.9520, L100.0100, L500.4050, L503.0106, L506.0400, L500.4100, L501.9985 #### [facility] [address] [place], [address] AST [Catalytic activity/Vol] 18 U/L Normal <=31 [facility] Comment on above: Performed By: #### L 501.9520, L100.0100, L500.4050, L503.0106, L506.0400, L500.4100, L501.9985 #### [facility] [address] [place], [address] Bilirubin [Mass/Vol] 0.31 mg/dL Normal 0.00-1.30 [facility] Comment on above: Performed By: #### L 501.9520, L100.0100, L500.4050, L503.0106, L506.0400, L500.4100, L501.9985 #### [facility] [address] [place], [address] BUN/CRE 14.9 RATIO Normal 10-20 [facility] Comment on above: Performed By: #### L 501.9520, L100.0100, L500.4050, L503.0106, L506.0400, L500.4100, L501.9985 #### [facility] [address] [place], [address] Calcium [Mass/Vol] 9.0 mg/dL Normal 7.6-11.0 [facility] Comment on above: Performed By: #### L 501.9520, L100.0100, L500.4050, L503.0106, L506.0400, L500.4100, L501.9985 #### [facility] [address] [place], [address] Chloride [Moles/Vol] 104 mmol/L Normal 98-108 [facility] Comment on above: Performed By: #### L 501.9520, L100.0100, L500.4050, L503.0106, L506.0400, L500.4100, L501.9985 #### [facility] [address] [place], [address] CO2 [Moles/Vol] 24.4 mmol/L Normal 21.0-32.0 [facility] Comment on above: Performed By: #### L 501.9520, L100.0100, L500.4050, L503.0106, L506.0400, L500.4100, L501.9985 #### [facility] [address] [place], [address] Creatinine [Mass/Vol] 0.74 mg/dL Normal 0.70-1.20 [facility] Comment on above: Performed By: #### L 501.9520, L100.0100, L500.4050, L503.0106, L506.0400, L500.4100, L501.9985 #### [facility] [address] [place], [place], [id number] (873) GAP 11 Normal 5-15 [facility] Comment on above: Performed By: #### L 501.9520, L100.0100, L500.4050, L503.0106, L506.0400, L500.4100, L501.9985 #### [facility] [address] [place], [place], [phone] (351) GFR/1.73 sq M.predicted among non-blacks MDRD (S/P/Bld) [Vol rate/Area] 112 mL/min/{1.73_m2} Normal >60 [facility] Comment on above: Result Comment: mL/m in/1.73m2 CKD-EPI Creatinine Equation (2020) Performed By: #### L 501.9520, L100.0100, L500.4050, L503.0106, L506.0400, L500.4100, L501.9985 #### [facility] [address] [place], [place], [id number] (829) Globulin (S) [Mass/Vol] 3.2 g/dL Normal 2.2-4.2 [facility] Comment on above: Performed By: #### L 501.9520, L100.0100, L500.4050, L503.0106, L506.0400, L500.4100, L501.9985 #### [facility] [address] [place], [place], [phone] Glucose [Mass/Vol] 92 mg/dL Normal 70-99 [facility] Comment on above: Performed By: #### L 501.9520, L100.0100, L500.4050, L503.0106, L506.0400, L500.4100, L501.9985 #### [facility] [address] [place], [address] Potassium [Moles/Vol] 4.7 mmol/L Normal 3.3-5.1 [facility] Comment on above: Performed By: #### L 501.9520, L100.0100, L500.4050, L503.0106, L506.0400, L500.4100, L501.9985 #### [facility] [address] [place], [address] Sodium [Moles/Vol] 139 mmol/L Normal 133-145 [facility] Comment on above: Performed By: #### L 501.9520, L100.0100, L500.4050, L503.0106, L506.0400, L500.4100, L501.9985 #### [facility] [address] [place], [address] T PROT 7.2 g/dL Normal 5.9-8.4 [facility] Comment on above: Performed By: #### L 501.9520, L100.0100, L500.4050, L503.0106, L506.0400, L500.4100, L501.9985 #### [facility] [address] [place], [address] Urea nitrogen [Mass/Vol] 11 mg/dL Normal 4-19 [facility] Comment on above: Performed By: #### L 501.9520, L100.0100, L500.4050, L503.0106, L506.0400, L500.4100, L501.9985 #### [facility] [address] [place], [address] Lipid Profileon 10-20-2024 CHOL:HDL 4.90 Normal [facility] Comment on above: Performed By: #### L 501.9520, L100.0100, L500.4050, L503.0106, L506.0400, L500.4100, L501.9985 #### [facility] [address] [place], [address] Cholesterol [Mass/Vol] 176 mg/dL Normal <=200 [facility] Comment on above: Result Comment: Chol esterol level, Desirable <200 mg/dL Borderline high cholesterol 200-239 mg/dL High cholesterol >=240 mg/dL Recommendations of the NCEP Adult Treatment Panel for the following risk-cutoff thresholds for the [place] population. Performed By: #### L 501.9520, L100.0100, L500.4050, L503.0106, L506.0400, L500.4100, L501.9985 #### [facility] [address] [place], [address] Cholesterol in HDL [Mass/Vol] 36 mg/dL Low [facility] Comment on above: Result Comment: Nereida onal Cholesterol Education Program (NCEP) guidelines: <40 mg/dL: Low HDL-cholesterol (major risk factor for CHD) >= 60 mg/dL: High HDL-cholesterol (negative risk factor for CHD) HDL-cholesterol is affected by a number of factors, e.g. smoking, exercise, hormones, sex and age. Performed By: #### L 501.9520, L100.0100, L500.4050, L503.0106, L506.0400, L500.4100, L501.9985 #### [facility] [address] [place], [address] Cholesterol in LDL [Mass/Vol] 123 mg/dL Normal [facility] Comment on above: Result Comment: Bord jawift=495-030 mg/dL Higher Wwtd=140 mg/dL or greater Performed By: #### L 501.9520, L100.0100, L500.4050, L503.0106, L506.0400, L500.4100, L501.9985 #### [facility] [address] [place], [place], [id number] (497) Cholesterol in VLDL [Mass/Vol] 17 mg/dL Normal 5-40 [facility] Comment on above: Performed By: #### L 501.9520, L100.0100, L500.4050, L503.0106, L506.0400, L500.4100, L501.9985 #### [facility] [address] [place], [address] Triglyceride [Mass/Vol] 85 mg/dL Normal [facility] Comment on above: Result Comment: The drugs N-Acetylcysteine and Metamizole may falsely depress this assay. Normal range: <150 mg/dL Borderline High: 150-199 mg/dL High: 200-499 mg/dL Very High: >500 mg/dL Performed By: #### L 501.9520, L100.0100, L500.4050, L503.0106, L506.0400, L500.4100, L501.9985 #### [facility] [address] [place], [place], [id number] T4 Free Directon 10-20-2024 T4 FREE DIRECT 1.00 ng/dL Normal 0.76-1.46 [facility] Comment on above: Performed By: #### L 501.9520, L100.0100, L500.4050, L503.0106, L506.0400, L500.4100, L501.9985 ####[facility] [address] [place], [address] Thyroid Stim Hormone (TSH)on 10-20-2024 TSH 3.280 uIU/mL Normal 0.300-4.200 [facility] Comment on above: Performed By: #### L 501.9520, L100.0100, L500.4050, L503.0106, L506.0400, L500.4100, L501.9985 #### [facility] [address] [place], [address] Vitamin B12on 10-20-2024 Cobalamin (Vitamin B12) [Mass/Vol] 271 pg/mL Normal 180-914 [facility] Comment on above: Performed By: #### L 501.9520, L100.0100, L500.4050, L503.0106, L506.0400, L500.4100, L501.9985 ####[facility] [address] [place], [address] Absolute lymphocyte countOrd ered By: Grupo Zavala on 10-19-2024 Lymphocytes Auto (Unsp spec) [#/Vol] 2.34 10*3/uL 0.83-4.51 [facility] Absolute neutrophil countOrd ered By: Grupo Zavala on 10-19-2024 Neutrophils (Bld) [#/Vol] 6.5 10*3/uL 2.0-7.7 [facility] Anion gap in Serum or Plasma Ordered By: Grupo Zavala on 10-19-2024 Anion gap [Moles/Vol] 11 mmol/L 5-15 [facility] Automated lymphocyte count a s percentage of total leukocytesOrdered By: Grupo Zavala on 10-19-2024 Lymphocytes/100 WBC Auto (Unsp spec) 23.9 % 19-41 [facility] BUN/creatinine ratioOrdered By: Grupo aZvala on 10-19-2024 Urea nitrogen/Creatinine [Mass ratio] 14.9 mg/mg 10-20 [facility] Basophil percentageOrdered B y: Jcnickie Zavala on 10-19-2024 Basophils/100 WBC (Bld) 0.6 % 0-1 [facility] Bilirubin, totalOrdered By: Grupo Zavala on 10-19-2024 Bilirubin [Mass/Vol] 0.31 mg/dL 0.00-1.30 [facility] CBC W/Diff, Automatedon 10-04 Absolute Lymph 2.34 X10 3/uL Normal 0.83-4.51 [facility] Comment on above: Performed By: #### L 501.9520, L100.0100, L500.4050, L503.0106, L506.0400, L500.4100, L501.9985 #### [facility] [address] [place], [address] Absolute Neut 6.5 X10 3/uL Normal 2.0-7.7 [facility] Comment on above: Performed By: #### L 501.9520, L100.0100, L500.4050, L503.0106, L506.0400, L500.4100, L501.9985 #### [facility] [address] [place], [address] Basophils/100 WBC (Bld) 0.6 % Normal 0-1 [facility] Comment on above: Performed By: #### L 501.9520, L100.0100, L500.4050, L503.0106, L506.0400, L500.4100, L501.9985 #### [facility] [address] [place], [address] Eosinophils/100 WBC (Bld) 3.5 % Normal 0-5 [facility] Comment on above: Performed By: #### L 501.9520, L100.0100, L500.4050, L503.0106, L506.0400, L500.4100, L501.9985 #### [facility] [address] [place], [address] Erythrocyte distribution width (RBC) [Ratio] 13.7 % Normal 11.6-14.6 [facility] Comment on above: Performed By: #### L 501.9520, L100.0100, L500.4050, L503.0106, L506.0400, L500.4100, L501.9985 #### [facility] [address] [place], [address] Hematocrit (Bld) [Volume fraction] 40.4 % Normal 37-47 [facility] Comment on above: Performed By: #### L 501.9520, L100.0100, L500.4050, L503.0106, L506.0400, L500.4100, L501.9985 #### [facility] [address] [place], [address] Hemoglobin (Bld) [Mass/Vol] 12.7 g/dL Normal 12.0-15.0 [facility] Comment on above: Performed By: #### L 501.9520, L100.0100, L500.4050, L503.0106, L506.0400, L500.4100, L501.9985 #### [facility] [address] [place], [address] IG% 0.300 Normal 0.0-0.9 [facility] Comment on above: Result Comment: IG% - Immature Granulocytes (promyelocytes, myelocytes and metamyelocytes) > 1% indicates that a LEFT SHIFT is Present. Performed By: #### L 501.9520, L100.0100, L500.4050, L503.0106, L506.0400, L500.4100, L501.9985 #### [facility] [address] [place], [address] Lymphocytes/100 WBC (Bld) 23.9 % Normal 19-41 [facility] Comment on above: Performed By: #### L 501.9520, L100.0100, L500.4050, L503.0106, L506.0400, L500.4100, L501.9985 #### [facility] [address] [place], [address] MCH (RBC) [Entitic mass] 26.3 pg Low 27.0-32.0 [facility] Comment on above: Performed By: #### L 501.9520, L100.0100, L500.4050, L503.0106, L506.0400, L500.4100, L501.9985 #### [facility] [address] [place], [address] MCHC (RBC) [Mass/Vol] 31.4 g/dL Low 32-36 [facility] Comment on above: Performed By: #### L 501.9520, L100.0100, L500.4050, L503.0106, L506.0400, L500.4100, L501.9985 #### [facility] [address] [place], [address] MCV (RBC) [Entitic vol] 83.8 fL Normal 81-99 [facility] Comment on above: Performed By: #### L 501.9520, L100.0100, L500.4050, L503.0106, L506.0400, L500.4100, L501.9985 #### [facility] [address] [place], [address] Monocytes/100 WBC (Bld) 5.3 % Normal 0-10 [facility] Comment on above: Performed By: #### L 501.9520, L100.0100, L500.4050, L503.0106, L506.0400, L500.4100, L501.9985 #### [facility] [address] [place], [address] Neutrophils/100 WBC (Bld) 66.4 % Normal 47-70 [facility] Comment on above: Performed By: #### L 501.9520, L100.0100, L500.4050, L503.0106, L506.0400, L500.4100, L501.9985 #### [facility] [address] [place], [address] Nucleated RBC (Bld) [#/Vol] 0 10*3/uL Normal 0-5 [facility] Comment on above: Performed By: #### L 501.9520, L100.0100, L500.4050, L503.0106, L506.0400, L500.4100, L501.9985 #### [facility] [address] [place], [address] Platelet mean volume (Bld) [Entitic vol] 10.7 fL Normal 6.2-12.0 [facility] Comment on above: Performed By: #### L 501.9520, L100.0100, L500.4050, L503.0106, L506.0400, L500.4100, L501.9985 #### [facility] [address] [place], [address] Platelets (Bld) [#/Vol] 454 10*3/uL High 150-450 [facility] Comment on above: Performed By: #### L 501.9520, L100.0100, L500.4050, L503.0106, L506.0400, L500.4100, L501.9985 #### [facility] [address] [place], [address] RBC (Bld) [#/Vol] 4.82 10*6/uL Normal 4.2-5.4 [facility] Comment on above: Performed By: #### L 501.9520, L100.0100, L500.4050, L503.0106, L506.0400, L500.4100, L501.9985 #### [facility] [address] [place], [address] RDW SD 42.5 fl Normal 35.1-43.9 [facility] Comment on above: Performed By: #### L 501.9520, L100.0100, L500.4050, L503.0106, L506.0400, L500.4100, L501.9985 #### [facility] [address] [place], [address] WBC (Bld) [#/Vol] 9.8 10*3/uL Normal 4.4-11.0 [facility] Comment on above: Performed By: #### L 501.9520, L100.0100, L500.4050, L503.0106, L506.0400, L500.4100, L501.9985 #### [facility] [address] [place], [address] Calculated very low density lipoprotein (VLDL) cholesterol measurementOrdered By: Grupo Zavala on 10-19-2024 Calculated very low density lipoprotein (VLDL) cholesterol measurement 17 mg/dL 5-40 [facility] Carbon dioxide, total [Moles /volume] in Central venous bloodOrdered By: Grupo Zavala on 10-19-2024 CO2 [Moles/Vol] 24.4 mmol/L 21.0-32.0 [facility] Chloride assayOrdered By: Jc Zavala on 10-19-2024 Chloride [Moles/Vol] 104 mmol/L 98-108 [facility] Eosinophil percentageOrdered By: Grupo Zavala on 10-19-2024 Eosinophils/100 WBC (Bld) 3.5 % 0-5 [facility] Erythrocyte distribution wid th ratioOrdered By: Magdalenaworcesternereida Zavala on 10-19-2024 Erythrocyte distribution width (RBC) [Ratio] 13.7 % 11.6-14.6 [facility] Erythrocyte distribution wid th standard deviationOrdered By: Magdalenaworcesternereida Zavala on 10-19-2024 Erythrocyte distribution width (RBC) [Ratio] 42.5 fl 35.1-43.9 [facility] Glomerular filtration rate ( GFR) estimation/1.73 sq m using serum, plasma, or whole bOrdered By: Grupo Zavala on 10-19-2024 GFR/1.73 sq M.predicted among non-blacks MDRD (S/P/Bld) [Vol rate/Area] 112 mL/min/{1.73_m2} >60 [facility] Comment on above: mL/min/1.73m2 CKD-EP I Creatinine Equation (2020) Hematocrit Auto (Bld) [Volum e fraction]Ordered By: Grupo Zavala on 10-19-2024 Hematocrit (Bld) [Volume fraction] 40.4 % 37-47 [facility] Hemoglobin A1con 10-19-2024 HbA1c (Bld) [Mass fraction] 5.6 % Normal <=5.6 [facility] Comment on above: Result Comment: Norm al < 5.7 % Prediabetic 5.7 - 6.4 % Diabetic >or= 6.5 % Please note range changes. Performed By: #### L 501.9520, L100.0100, L500.4050, L503.0106, L506.0400, L500.4100, L501.9985 #### [facility] [address] [place], [place], [address] Hemoglobin A1c percentageOrd ered By: Grupo Zavala on 10-19-2024 HbA1c (Bld) [Mass fraction] 5.6 % <5.7 [facility] Comment on above: Normal < 5.7 % Predi abetic 5.7 - 6.4 % Diabetic >or= 6.5 % Please note range changes. Hemoglobin measurementOrdere d By: Grupo Zavala on 10-19-2024 Hemoglobin (Bld) [Mass/Vol] 12.7 g/dL 12.0-15.0 [facility] Immature granulocytes/100 WB C Auto (Bld)Ordered By: Grupo Zavala on 10-19-2024 Immature granulocytes/100 WBC (Bld) 0.300 % 0.0-0.9 [facility] Comment on above: IG% - Immature Granu locytes (promyelocytes, myelocytes and metamyelocytes) > 1% indicates that a LEFT SHIFT is Present. Internal Medicine Office Vis sarah 10-19-2024 Internal Medicine Office Visit [facility] [place], [place] [address] OFFICE VISIT Date of Service: 10/19/24 MR#: [id number] Acct: [id number] Name: KRISTEN CHRISTY Rep #: [id number] : 1995 Provider: Dr. Grupo guaman MD Age/Sex: 29/F [place] [facility] [place] Status: Signed Intake Vital Signs 05/18/24 11:56 [...] 400 mg PO .1xwk PRN 10/19/2410/19 History PFSH Medical History (Updated 10/19/24 @ 09:20 by [...] History (Updated 10/19/24 @ 08:44 by Jayashree Kougher, [employer]) household members: family current occupational status: unemployed Smoking Status: Never smoker alcohol intake: never substance use type: does not use caffeine: Yes (AM) Type: coffee what type of physical activity do you participate in: none seatbelt use: always do you feel safe at home: Yes additional social history: Ujupvj-Vkwzbfr-Cahll lex Patient is stay at home mom Questionnaire [...] 15 Source: Developed by Drs. Isai Motley, Troy Alvarez and colleagues, with an educational regan from [employer]. PASHA-7 BMS PASHA-7 Feeling nervous, anxious, or [...] and colleagues, with an educational regan from [employer]. HPI HPI Chief Complaint: EDITH MARMOLEJO PT- [...] of co (more content not included)... Normal [facility] LDL calc ser/plasOrdered By: Grupo Zavala on 10-19-2024 Cholesterol in LDL [Mass/Vol] 123 mg/dL [facility] Comment on above: Ogcruhrqqk=204-009 m g/dL & Higher Nzyu=989 mg/dL or greater Laboratory - Chemistry and C hemistry - challengeOrdered By: Grupo Zavala on 10-19-2024 AST [Catalytic activity/Vol] 18 U/L <32 [facility] MCV (mean corpuscular volume ) determinationOrdered By: Grupo Zavala on 10-19-2024 MCV (RBC) [Entitic vol] 83.8 fL 81-99 [facility] Mean corpuscular hemoglobin (MCH) determinationOrdered By: Magdalenaworcesternereida Zavala on 10-19-2024 MCH (RBC) [Entitic mass] 26.3 pg Low 27.0-32.0 [facility] Mean corpuscular hemoglobin concentration (MCHC) determinationOrdered By: Grupo Zavala on 10-19-2024 MCHC (RBC) [Mass/Vol] 31.4 g/dL Low 32-36 [facility] Mean platelet volume determi nationOrdered By: Grupo Zavala on 10-19-2024 Platelet mean volume (Bld) [Entitic vol] 10.7 fL 6.2-12.0 [facility] Monocyte percentageOrdered B y: Grupo Zavala on 10-19-2024 Monocytes/100 WBC (Bld) 5.3 % 0-10 [facility] Neutrophil percentageOrdered By: Grupo Zavala on 10-19-2024 Neutrophils/100 WBC (Bld) 66.4 % 47-70 [facility] Nucleated red blood cell per centageOrdered By: Grupo Zavala on 10-19-2024 Nucleated RBC/100 WBC (Bld) [Ratio] 0 % 0-5 [facility] Platelet countOrdered By: Jc Zavala on 10-19-2024 Platelets (Bld) [#/Vol] 454 10*3/uL High 150-450 [facility] Potassium measurement (mass/ volume)Ordered By: Grupo Zavala on 10-19-2024 Potassium (Unsp spec) [Mass/Vol] 4.7 mmol/L 3.3-5.1 [facility] RBC Auto (Bld) [#/Vol]Ordere d By: Grupo Zavala on 10-19-2024 RBC (Bld) [#/Vol] 4.82 10*6/uL 4.2-5.4 [facility] Screening total cholesterol/ high density lipoprotein (HDL) cholesterol ratioOrdered By: Grupo Zavala on 10-19-2024 Cholesterol.total/Choles terol in HDL [Mass ratio] 4.90 {ratio} [facility] Serum creatinine measurement (mass/volume)Ordered By: Grupo Zavala on 10-19-2024 Creatinine [Mass/Vol] 0.74 mg/dL 0.70-1.20 [facility] Serum globulin measurementOr dered By: Grupo Zavala on 10-19-2024 Globulin (S) [Mass/Vol] 3.2 g/dL 2.2-4.2 [facility] Serum glucose measurement (m ass/volume)Ordered By: Grupo Zavala on 10-19-2024 Glucose [Mass/Vol] 92 mg/dL 70-99 [facility] Serum or plasma alanine landers otransferase (ALT) measurementOrdered By: Grupo Zavala on 10-19-2024 ALT [Catalytic activity/Vol] 25 U/L <35 [facility] Serum or plasma albumin nicole urement (mass/volume)Ordered By: Grupo Zavala on 10-19-2024 Albumin [Mass/Vol] 4.0 g/dL 3.5-5.0 [facility] Serum or plasma albumin/glob ulin mass ratioOrdered By: nickie Bellashli on 10-19-2024 Albumin/Globulin [Mass ratio] 1.2 {ratio} 0.9-2.4 [facility] Serum or plasma alkaline connor sphatase measurementOrdered By: nickie Zavala 10-19-2024 ALP [Catalytic activity/Vol] 82 U/L 35-104 [facility] Serum or plasma calcium nicole urement (mass/volume)Ordered By: [facility] Bellashlikellie 10-19-2024 Calcium [Mass/Vol] 9.0 mg/dL 7.6-11.0 [facility] Serum or plasma cholesterol in HDL measurement (mass/volume)Ordered By: Grupo Zavala 10-19-2024 Cholesterol in HDL [Mass/Vol] 36 mg/dL Low >40 [facility] Comment on above: National Cholesterol Education Program (NCEP) guidelines:<40 mg/dL: Low HDL-cholesterol (major risk factor for CHD)>= 60 mg/dL: High HDL-cholesterol (negative risk factor for CHD)HDL-cholesterol is affected by a number of factors, e.g. smoking, exercise, hormones, sex and age. Serum or plasma cholesterol measurement (mass/volume)Ordered By: Grupo Zavala 10-19-2024 Cholesterol [Mass/Vol] 176 mg/dL <201 [facility] Comment on above: Cholesterol level, D esirable <200 mg/dLBorderline high cholesterol 200-239 mg/dLHigh cholesterol >=240 mg/dLRecommendations of the NCEP Adult Treatment Panel for the following risk-cutoff thresholds for the [place] population. Serum or plasma urea nitroge n measurement (mass/volume)Ordered By: Grupo Zavala 10-19-2024 Urea nitrogen [Mass/Vol] 11 mg/dL 4-19 [facility] Sodium levelOrdered By: Magdalena tomkelli Lucas 10-19-2024 Sodium [Moles/Vol] 139 mmol/L 133-145 [facility] T4 freeOrdered By: Kwamenereida Bellashlikellie on 10-19-2024 Free T4 [Mass/Vol] 1.00 ng/dL 0.76-1.46 [facility] TSH DL <= 0.005 mIU/L QnOrde red By: Grupo Rayalecia on 10-19-2024 TSH Qn 3.280 uIU/mL 0.300-4.200 [facility] Total proteinOrdered By: Dhruvkellie ervin Rayashlikellie on 10-19-2024 Protein [Mass/Vol] 7.2 g/dL 5.9-8.4 [facility] Triglycerides measurementOrd ered By: Kwamenereida Bellashlikellie on 10-19-2024 Triglyceride [Mass/Vol] 85 mg/dL <199 [facility] Comment on above: The drugs N-Acetylcy steine and Metamizole may falsely depress this assay. Normal range: <150 mg/dLBorderline High: 150-199 mg/dLHigh: 200-499 mg/dLVery High: >500 mg/dL Vitamin B12 ser/plasOrdered By: Kwamenereida Zavala on 10-19-2024 Cobalamin (Vitamin B12) [Mass/Vol] 271 pg/mL 180-914 [facility] White blood cell (WBC) count Ordered By: Jcnorahjanesnereida Zavala on 10-19-2024 WBC (Bld) [#/Vol] 9.8 10*3/uL 4.4-11.0 [facility] Urgent Care Visit Reporton 0 08-14-2024 Urgent Care Visit Report [facility] [address], [address] [place] [address] OFFICE VISIT Date of Service: 08/14/24 MR#: [id number] Acct: [id number] Name: KRISTEN CHRISTY Rep #: [id number] : 1995 Provider: MANUEL Griffith Age/Sex: 28/F [place] [facility] [facility] [place] Status: Signed Intake Vital Signs 05/18/24 11:56 [...] Chief Complaint: ears plugged, ST, cough, fever Chin Strap Sewer Required: No Is patient in pain?: No [...] cough, fever x 6 days without resolve. PFSH Medical History Right ankle sprain Acute pharyngitis, [...] safe at home: Yes additional social history: Asnfmi-Bhwinqo-Wxwns lex Patient is stay at home mom HPI HPI Chief Complaint: ears plugged, ST, cough, fever Details: KRISTEN CUTTER, is a 28 F who presents to [...] Exam Const General: cooperative and healthy appearing HENIN Head: normal to inspection Ears: hearing grossly [...] past year?: No 08/14/24 1124 Date Nathan JACKSON Cosigner Signature: Date (if applicable) CC: Normal [facility] Urgent Care Visit Reporton 0 05-18-2024 Urgent Care Visit Report [facility] [address], [address] [place] [address] OFFICE VISIT Date of Service: 05/18/24 MR#: [id number] Acct: [id number] Name: KRISTEN CHRISTY Rep #: [id number] : 1995 Provider: MANUEL Fernando Age/Sex: 28/F [place] [facility] [place] Status: Signed Intake Vital Signs 04/28/24 09:10 [...] since . Patient was seen here on and given a AB. Patient also c/o sore throat that has been going on for 2 days. [facility] Medical History (Updated 04/28/24 @ [...] movement norm (more content not included)... Normal [facility] Urgent Care Visit Reporton 1 06-29-2023 Urgent Care Visit Report [facility] [address], [address] [place] [address] OFFICE VISIT Date of Service: 04/28/24 MR#: [id number] Acct: [id number] Name: KRISTEN CHRISTY Lora Rep #: [id number] : 1995 Provider: MANUEL Griffith Age/Sex: 28/F [place] [facility] [place] Status: Signed Intake Vital Signs 07/21/22 12:12 [...] had bilateral ear pain for 3-4 days [facility] [facility] Medical History (Updated 04/28/24 @ [...] PO BID 10 days 20 caps 0RF atepwgenlyyjtwp-RF-z uaifenesin 60-15-400 mg (Capmist DM) do not [...] Carrera Signature: Date (if applicable) CC: Normal [facility] Culture, urineOrdered By: Dr Yamileth Smith on 05-22-2022 Bacteria identified Cx Nom (U) Mixed Gram Pos & Gram Neg Org [facility] Culture, urineOrdered By: Jamie Ferrer on 05-21-2022 Bacteria identified Cx Nom (U) Positive [facility] Absolute lymphocyte countOrd ered By: Dr. Smith on 05-20-2022 Lymphocytes Auto (Unsp spec) [#/Vol] 2.98 10*3/uL 0.83-4.51 [facility] Basophil percentageOrdered B y: Dr. Smith on 01-15-2023 Basophil percentage 10-25 SEEN /hpf 0-5 [facility] Basophils/100 WBC (Bld) 0.6 % 0-1 [facility] Chloride [Moles/Vol] 106 mmol/L 98-107 [facility] Eosinophils/100 WBC (Bld) 2.2 % 0-5 [facility] Glucose [Mass/Vol] 120 mg/dL 74-106 [facility] Comment on above: Fasting Glucose resu lt from 100 to 125 mg/dL suggests IMPAIRED HOMEOSTASIS per A.D.A. criteria. Neutrophils (Bld) [#/Vol] 6.5 10*3/uL 2.0-7.7 [facility] Neutrophils/100 WBC (Bld) 63.3 % 47-70 [facility] Potassium [Moles/Vol] 3.8 mmol/L 3.5-5.1 [facility] Sodium [Moles/Vol] 140 mmol/L 136-145 [facility] WBC (Bld) [#/Vol] 10.2 10*3/uL 4.4-11.0 [facility] Beta hCG serum qualOrdered B y: Dr. Smith on 05-20-2022 Beta HCG ( test) Ql Negative [facility] Bilirubin Test strip Ql (U)O rdered By: Dr. Smith on 05-20-2022 Bilirubin Ql (U) 3 mg/dL Negative [facility] Comment on above: COLOR OF URINE MAY A FFECT DIPSTICK RESULTS. Blood erythrocytes count (nu mber/volume)Ordered By: Dr. Smith on 05-20-2022 RBC (Bld) [#/Vol] 4.58 10*6/uL 4.2-5.4 [facility] Blood hemoglobin measurement (mass/volume)Ordered By: Dr. Smith on 05-20-2022 Hemoglobin (Bld) [Mass/Vol] 13.0 g/dL 12.0-15.0 [facility] Blood lymphocytes/100 leukoc ytesOrdered By: Dr. Smith on 05-20-2022 Lymphocytes/100 WBC (Bld) 29.1 % 19-41 [facility] Blood monocytes/100 leukocyt esOrdered By: Dr. Smith on 05-20-2022 Monocytes/100 WBC (Bld) 4.5 % 0-10 [facility] Blood platelet mean volumeOr dered By: Dr. Smith on 05-20-2022 Platelet mean volume (Bld) [Entitic vol] 10.2 fL 6.2-12.0 [facility] Determination of erythrocyte mean corpuscular volume (MCV)Ordered By: Dr. Smith on 05-20-2022 MCV (RBC) [Entitic vol] 85.8 fL 81-99 [facility] Hematocrit Auto (Bld) [Volum e fraction]Ordered By: Dr. Smith on 05-20-2022 Hematocrit (Bld) [Volume fraction] 39.3 % 37-47 [facility] Ketones Test strip Ql (U)Ord ered By: Dr. Smith on 05-20-2022 Ketones Ql (U) 5 mg/dl Negative [facility] Laboratory - Chemistry and C hemistry - challengeOrdered By: Dr. Smith on 05-20-2022 CO2 [Moles/Vol] 24.0 mmol/L 21.0-32.0 [facility] Urea nitrogen/Creatinine [Mass ratio] 17.0 mg/mg 10-20 [facility] Laboratory - Hematology and Cell countsOrdered By: Dr. Smith on 05-20-2022 Erythrocyte distribution width (RBC) [Entitic vol] 41.0 fL 35.1-43.9 [facility] Erythrocyte distribution width (RBC) [Ratio] 13.2 % 11.6-14.6 [facility] Immature granulocytes/100 WBC (Bld) 0.300 % 0.0-0.9 [facility] Comment on above: IG% - Immature Granu locytes (promyelocytes, myelocytes and metamyelocytes) > 1% indicates that a LEFT SHIFT is Present. MCH (RBC) [Entitic mass] 28.4 pg 27.0-32.0 [facility] Nucleated RBC/100 WBC (Bld) [Ratio] 0 % 0-5 [facility] MCHC Auto (RBC) [Mass/Vol]Or dered By: Dr. Smith on 05-20-2022 MCHC (RBC) [Mass/Vol] 33.1 g/dL 32-36 [facility] Mucus LM Ql (Urine sed)Order ed By: Dr. Smith on 05-20-2022 Mucus Ql (Urine sed) 0 SEEN /hpf [facility] Nitrite Test strip Ql (U)Ord ered By: Dr. Smith on 05-20-2022 Nitrite Ql (U) Positive Negative [facility] No Panel InformationOrdered By: Dr. Smith on 05-20-2022 Estimated Creatinine Clearance Calc 96.87 ml/min [facility] Estimated GFR (MDRD) Amer 98 mL/min >60 [facility] Comment on above: GFR Calc Estimated GFR (MDRD) Non-Af Amer 81 mL/min >60 [facility] Comment on above: Non- GFR Calc Platelets bldOrdered By: Dr. Smith on 05-20-2022 Platelets (Bld) [#/Vol] 379 10*3/uL 150-450 [facility] Protein Test strip Ql (U)Ord ered By: Dr. Smith on 05-20-2022 Protein Ql (U) 15 mg/dl Negative [facility] Serum or plasma calcium nicole urement (mass/volume)Ordered By: Dr. Smith on 05-20-2022 Calcium [Mass/Vol] 8.7 mg/dL 8.5-10.1 [facility] Serum or plasma creatinine m easurement (mass/volume)Ordered By: Dr. Smith on 05-20-2022 Creatinine [Mass/Vol] 0.88 mg/dL 0.55-1.02 [facility] Comment on above: The validity of the calculated GFR & GFRAA in patients over 70 years has not been determined. Clinical correlation is essential. Serum or plasma urea nitroge n measurement (mass/volume)Ordered By: Dr. Smith on 05-20-2022 Urea nitrogen [Mass/Vol] 15 mg/dL 7-18 [facility] Squamous epithelial cells de tection in urine sediment by light microscopyOrdered By: Dr. Smith on 05-20-2022 Epithelial cells.squamous LM Ql (Urine sed) 5-10 SEEN /hpf 5-10 [facility] Thin prep Papanicolaou smear with manual screeningOrdered By: Dr. Smith on 05-20-2022 Thin prep Papanicolaou smear with manual screening 10 5-15 [facility] Urine blood detectionOrdered By: Dr. Smith on 05-20-2022 RBC Ql (U) Negative Negative [facility] RBC Ql (U) 0 SEEN /hpf 0-5 [facility] Urine clarityOrdered By: Dr. Smith on 05-20-2022 Clarity (U) Sl. Cloudy Clear [facility] Urine color determinationOrd ered By: Dr. Smith on 05-20-2022 Color (U) Roselia Yellow [facility] Urine glucose detectionOrder ed By: Dr. Smith on 05-20-2022 Glucose Ql (U) Normal mg/dl Normal [facility] Urine leukocyte esterase det ection by dipstickOrdered By: Dr. Smith on 05-20-2022 Leukocyte esterase Test strip Ql (U) 500 /ul Negative [facility] Urine pHOrdered By: Dr. Michel clifford on 05-20-2022 pH (U) 6.0 [pH] 5.0 - 8.0 [facility] Urine sediment bacteria coun t by microscopy (number/high power field)Ordered By: Dr. Smith on 05-20-2022 Bacteria LM.HPF (Urine sed) [#/Area] 1 /[HPF] None Seen [facility] Urine specific gravity measu rementOrdered By: Dr. Smith on 05-20-2022 Specific gravity (U) [Rel density] 1.025 1.002-1.030 [facility] Urobilinogen Auto test strip Ql (U)Ordered By: Dr. Smith on 05-20-2022 Urobilinogen Ql (U) 4 mg/dl Normal [facility] Basophil percentageOrdered B y: Nathan Ferrer on 05-19-2022 Basophil percentage 10-25 SEEN /hpf 0-5 [facility] Bilirubin Test strip Ql (U)O rdered By: Nathan Ferrer on 05-19-2022 Bilirubin Ql (U) Negative Negative [facility] Ketones Test strip Ql (U)Ord ered By: Nathan Ferrer on 05-19-2022 Ketones Ql (U) Negative Negative [facility] Laboratory - Chemistry and C hemistry - challengeon 05-19-2022 Bilirubin Ql (U) Negative [facility] Glucose Ql (U) Negative [facility] HCG ( test) Ql (U) Negative [facility] Ketones Ql (U) Negative [facility] pH (U) 7.5 [pH] [facility] Specific gravity (U) [Rel density] 1.005 [facility] Urobilinogen (U) [Mass/Vol] Negative [facility] Laboratory - Hematology and Cell countson 05-19-2022 Hemoglobin Ql (U) Negative [facility] Laboratory - Specimen inform ationon 05-19-2022 Clarity (U) Clear [facility] Color (U) YELLOW [facility] Laboratory - Urinalysison Nitrite Ql (U) Negative [facility] Protein Ql (U) Negative [facility] Mucus LM Ql (Urine sed)Order ed By: Nathan Ferrer on 05-19-2022 Mucus Ql (Urine sed) 0 SEEN /hpf [facility] Nitrite Test strip Ql (U)Ord ered By: Nathan Ferrer on 05-19-2022 Nitrite Ql (U) Negative Negative [facility] No Panel Informationon 05-19 Urine Leukocytes Positive [facility] Urine Non-Hemolyzed Blood Negative [facility] Protein Test strip Ql (U)Ord ered By: Nathan Ferrer on 05-19-2022 Protein Ql (U) Negative Negative [facility] Squamous epithelial cells de tection in urine sediment by light microscopyOrdered By: Nathan Ferrer on 05-19-2022 Epithelial cells.squamous LM Ql (Urine sed) 5-10 SEEN /hpf 5-10 [facility] Urine blood detectionOrdered By: Nathan Ferrer on 05-19-2022 RBC Ql (U) Negative Negative [facility] RBC Ql (U) 0 SEEN /hpf 0-5 [facility] Urine clarityOrdered By: Abbe Ferrer on 05-19-2022 Clarity (U) Sl. Cloudy Clear [facility] Urine color determinationOrd ered By: Nathan Ferrer on 05-19-2022 Color (U) Yellow Yellow [facility] Urine glucose detectionOrder ed By: Nathan Ferrer on 05-19-2022 Glucose Ql (U) Normal mg/dl Normal [facility] Urine leukocyte esterase det ection by dipstickOrdered By: Nathan Ferrer on 05-19-2022 Leukocyte esterase Test strip Ql (U) 500 /ul Negative [facility] Urine pHOrdered By: Nathan crocker on 05-19-2022 pH (U) 8.0 [pH] 5.0 - 8.0 [facility] Urine sediment bacteria coun t by microscopy (number/high power field)Ordered By: Nathan Ferrer on 05-19-2022 Bacteria LM.HPF (Urine sed) [#/Area] 0 /[HPF] None Seen [facility] Urine specific gravity measu rementOrdered By: Nathan Ferrer on 05-19-2022 Specific gravity (U) [Rel density] 1.010 1.002-1.030 [facility] Urobilinogen Auto test strip Ql (U)Ordered By: Nathan Ferrer on 05-19-2022 Urobilinogen Ql (U) Normal mg/dl Normal [facility] Laboratory - Chemistry and C hemistry - challengeon 05-12-2022 Bilirubin Ql (U) Negative [facility] Glucose Ql (U) Negative [facility] Ketones Ql (U) Trace (5) [facility] pH (U) 7.5 [pH] [facility] Specific gravity (U) [Rel density] 1.005 [facility] Urobilinogen (U) [Mass/Vol] Negative [facility] Laboratory - Hematology and Cell countson 05-12-2022 Hemoglobin Ql (U) Trace [facility] Laboratory - Specimen inform ationon 05-12-2022 Clarity (U) Cloudy [facility] Color (U) STRAW [facility] Laboratory - Urinalysison Nitrite Ql (U) Negative [facility] Protein Ql (U) Negative [facility] No Panel Informationon 05-12 Urine Leukocytes Positive [facility] Urine Non-Hemolyzed Blood Non-Hemolyzed [facility] Laboratory - Microbiology an d Antimicrobial susceptibilityon 03-21-2022 S. pyogenes Ag IA Ql (Unsp spec) Negative [facility] CNOVon 03-27-2019 CNOV Office Visit (UCWSTR) KRISTEN CHRISTY ([id number]) 1995 F Date Time Provider Department 03/27/19 3:45 PM DAVON MARIA) NARENDRAWSTR During your visit today, we recorded the [...] TEST B/O Agrees to plan Davon Maria APRN.CNP Referring Provider: SELF [200] Allergies As of Date: 03/27/2019 Noted Allergy Reaction PENICILLINS 07/20/2013 11 - Vomiting Date Reviewed: 03/27/2019 Reviewed by: Romy Oliveira Ma - Fully Assessed Reason for Visit: Sore Throat [200] Cmt: x 2 days, exposure Primary Visit Diagnosis:Sore throat [J02.9] Order(s):GROUP A STREPTOCOCCUS BY PCR [SQGASPCR] Order #: [id number] RAPID STREP TEST B/O [5280749] Order #: [id number] Prescriptions as of 03/27/2019 Sig: COPPER 380 [...] by DAVON MARIA CNP on 03/27/19 Normal [facility] Group A Strep by PCRon 03-27 GAS Specimen Source Throat Swab Normal [facility] Comment on above: Performed By: #### G ASPCR #### [facility] [address] [place], [place] [address] Group A Strep PCR Negative Normal [facility] Comment on above: Result Comment: This test was developed and its performance characteristics determined by [facility] Medicine [place] ( [facility]). It has not been cleared or approved by the FDA. [facility] is regulated under CLIA as qualified to perform high complexity testing. This test is used for clinical purposes. It should not be regarded as investigational or for research. Performed By: #### G ASPCR #### [facility] [employer] [address] [place], [place] [address] PROGRESSon 03-27-2019 PROGRESS HNO ID: [id number] Author: Davon Maria Service: ? Author Type: Nurse Practitioner Type: [...] TEST B/O Agrees to plan Davon Maria APRN.CNP [facility] CNOVon 08-13-2018 CNOV Office Visit (INTMWS) KRISTEN CHRISTY Lora ([id number]) 1995 F Date Time Provider Department 08/13/18 8:20 AM MARIELOS QUINN ([facility]) INTMWS During your visit today, we recorded the following information about you: Temperature Pulse Respiration Blood pressure 96.9 degrees 104/minute 16/minute 104/72 Weight Height Last Period 103.5 kg 1.721 m 07/30/18 Marielos Quinn APRN.CNP 08/13/2018 10:07 AM Signed HPI/CC: Kristenchrista Christy is a 22 year old female accompanied by her father who presents for a well adult exam/[facility] care. New concerns today include Establish care [...] menstrual period was 07/30/2018 (approximate). BSE? yes NICU RN: follows with , last visit ~1 month [...] 2 Syringes once daily. with insulin needles Jutifdzz-Cy-Ixd-Fe-F A ( VITAMIN) tab Take 1 tablet [...] - pt will check w/insurance and her NICU RN's office - Follow up for annual exam [...] symptoms occur. Patient agreeable to treatment plan. Marielos Quinn APRN.SEATING UPHOLSTERER Referring Provider: SELF [200] Allergies As of Date: 08/13/2018 Noted Allergy Reaction PENICILLINS 07/20/2013 11 - Vomiting Date Reviewed: 08/13/2018 Reviewed by: Patrick Greer Ma - Fully Assessed Reason for [...] tabletRfl: 0 XR LUMBAR GENERAL 3V AP/LAT/L5-S1 [[id number]] Order #: [id number] FUTURE Prescriptions as of 08/13/2018 Sig: COPPER 380 SQUARE MM INTRAUTE* INSERTED IN THE OFFICE MELOXICAM 15 MG TABLET Take 1 tablet by mouth once d* Medication notes this encounter COPPER 380 SQUARE MM INTRAUTERINE DEVICE >> Patrick Greer Ma 08/13/2018 8:23 AM >> PATRICK GREER MA Wed Aug 13, 2018 8:23 AM Problem List As [...] Reason for discontinue is not on file. Sbvgpaxq-Ie-Jgs-Fe-F A (PREN* 08/13/2018 Class: Historical Med Route: ORAL Sig: Take 1 tablet by mouth. Disc: Reason for discontinue is not on file. Insulin Syringes, Disposable, 1 mL s* 45 S* 0 09/27/2016 08/13/2018 Route: Miscell. (Med.Supl.;Non-Drugs ) Si Syringes once daily. with insulin needles Disc: Reason for discontinue is not on file. Encounter Status:Closed by MARIELOS QUINN CNP on 08/13/18 [facility] PROGRESSon 08-13-2018 PROGRESS HNO ID: [id number] Author: Shirley Lee Service: ? Author Type: [...] Shirley Lee August 13, 2018 9:22 AM [facility] PROGRESS HNO ID: [id number] Author: Marielos Quinn Service: ? Author Type: Nurse Practitioner Type: Progress Notes Filed: 08/13/2018 10:07 AM Note Text: HPI/CC: Kristen Christy is a 22 year old female accompanied by her father who presents for a well adult exam/[facility] care. New concerns today include Establish care [...] menstrual period was 07/30/2018 (approximate). BSE? yes NICU RN: follows with , last visit ~1 month [...] 2 Syringes once daily. with insulin needles Mkfoucao-Nx-Zmb-Fe-F A ( VITAMIN) tab Take 1 tablet [...] - pt will check w/insurance and her NICU RN's office - Follow up for annual exam [...] symptoms occur. Patient agreeable to treatment plan. Marielos Quinn APRN.SEATING UPHOLSTERER [facility] XR LUMBAR 3V AP/LAT/L5-S1on 08-13-2018 XR LUMBAR [...] IUD in situ. IMPRESSION: Mild degenerative change. [employer]working [employer]: PSCB Transcribe Date/Time: Aug 13 2018 6:18P Dictated by : CHRISTA MONSON MD This examination was interpreted and the report reviewed and electronically signed by: CHRISTA MONSON MD on Aug 13 2018 6:19PM EST [id number] [facility] CNOVon 05-03-2018 CNOV Office Visit (UCWSTR) KRISTEN CHRISTY ([id number]) 1995 F Date Time Provider Department 05/03/18 11:15 AM DAVON MARIA) UCWSTR During your visit today, we recorded the following information about you: Temperature Pulse Respiration Blood pressure 97.9 degrees 83/minute 18/minute 110/80 Weight 103.4 kg Davon Maria APRN.CNP 05/03/2018 12:11 PM Signed Subjective HPI HPI Kristen Christy is a 22 year old female who presents today for CC of bilateral ear pain. This started 2 weeks, was on zpack did not help. Has tried otc medication. Symptoms are worsened by nothing. Risk factors recent illness. Nonsmoker, Denies possibility of being . .Patient presents with: Ear Problem: took zpack from [facility] and still not helping. went sat. [...] 2 Syringes once daily. with insulin needles Kwmsnthg-Ab-Yhn-Fe-F A ( VITAMIN) tab Take 1 tablet [...] Patient agreeable to treatment plan. Davon Maria APRN.MARLY Maria APRN.MARLY 05/03/2018 11:56 AM Signed [facility] MEDIA GENERAL [...] even if the symptoms go away. 2. Ccwm-gbe-ougkdmq pain medication may be taken or other [...] Vomiting Date Reviewed: 05/03/2018 [facility] - Fully Assessed Reason for Visit: Ear Problem [38] Cmt: took zpack from [facility] and still not helping. went sat. before [place] Reason For Visit History Recorded Primary Visit [...] even if the symptoms go away. 2. Uknm-uen-itmniks pain medication may be taken or other [...] Status:Closed by DAVON MARIA CNP on 05/03/18 [facility] PROGRESSon 05-03-2018 PROGRESS HNO ID: [id number] Author: Davon (Marly) Service: (none) Author Type: Nurse Practitioner Type: Progress Notes Filed: 05/03/2018 12:11 PM Note Text: Subjective HPI HPI Kristen Christy is a 22 year old female who presents today for CC of bilateral ear pain. This started 2 weeks, was on zpack did not help. Has tried otc medication. Symptoms are worsened by nothing. Risk factors recent illness. Nonsmoker, Denies possibility of being . .Patient presents with: Ear Problem: took zpack from [facility] and still not helping. went sat. [...] 2 Syringes once daily. with insulin needles Nxxerwtn-Rx-Gxf-Fe-F A ( VITAMIN) tab Take 1 tablet [...] Patient agreeable to treatment plan. Davon Maria APRN.SEATING UPHOLSTERER [facility] Vital Signs Date Time Vital Sign Value Performing Clinician Jonh quesada 01-25-2025 08:59-0400 Body height 172.72 cm No Primary Care Physician [facility] 01-25-2025 08:59-0400 Body mass index (BMI) [Ratio] 38.2 kg/m2 No Primary Care Physician [facility] 01-25-2025 08:59-0400 Body temperature 98 [degF] No Primary Care Physician [facility] 01-25-2025 08:59-0400 Body weight 114.3 kg No Primary Care Physician [facility] 01-25-2025 08:59-0400 Diastolic blood pressure 80 mm[Hg] No Primary Care Physician [facility] 01-25-2025 08:59-0400 Heart rate 94 /min No Primary Care Physician [facility] 01-25-2025 08:59-0400 Respiratory rate 16 /min No Primary Care Physician [facility] 01-25-2025 08:59-0400 SaO2% (BldA) [Mass fraction] 99 % No Primary Care Physician [facility] 01-25-2025 08:59-0400 Systolic blood pressure 110 mm[Hg] No Primary Care Physician [facility] 10-22-2024 16:51-0400 Body temperature 98.7 [degF] No Primary Care Physician [facility] 10-22-2024 16:51-0400 Diastolic blood pressure 84 mm[Hg] No Primary Care Physician [facility] 10-22-2024 16:51-0400 Heart rate 107 /min No Primary Care Physician [facility] 10-22-2024 16:51-0400 Respiratory rate 16 /min No Primary Care Physician [facility] 10-22-2024 16:51-0400 SaO2% (BldA) [Mass fraction] 96 % No Primary Care Physician [facility] 10-22-2024 16:51-0400 Systolic blood pressure 114 mm[Hg] No Primary Care Physician [facility] 10-19-2024 08:38-0400 Body height 172.72 cm No Primary Care Physician [facility] 10-19-2024 08:38-0400 Body mass index (BMI) [Ratio] 38.9 kg/m2 No Primary Care Physician [facility] 10-19-2024 08:38-0400 Body temperature 99 [degF] No Primary Care Physician [facility] 10-19-2024 08:38-0400 Body weight 116.11 kg No Primary Care Physician [facility] 10-19-2024 08:38-0400 Diastolic blood pressure 66 mm[Hg] No Primary Care Physician [facility] 10-19-2024 08:38-0400 Heart rate 107 /min No Primary Care Physician [facility] 10-19-2024 08:38-0400 Respiratory rate 18 /min No Primary Care Physician [facility] 10-19-2024 08:38-0400 SaO2% (BldA) [Mass fraction] 99 % No Primary Care Physician [facility] 10-19-2024 08:38-0400 Systolic blood pressure 124 mm[Hg] No Primary Care Physician [facility] 08-14-2024 11:09-0400 Body temperature 98 [degF] No Primary Care Physician [facility] 08-14-2024 11:09-0400 Diastolic blood pressure 80 mm[Hg] No Primary Care Physician [facility] 08-14-2024 11:09-0400 Heart rate 67 /min No Primary Care Physician [facility] 08-14-2024 11:09-0400 Respiratory rate 15 /min No Primary Care Physician [facility] 08-14-2024 11:09-0400 SaO2% (BldA) [Mass fraction] 97 % No Primary Care Physician [facility] 08-14-2024 11:09-0400 Systolic blood pressure 112 mm[Hg] No Primary Care Physician [facility] 05-20-2022 21:43-0500 Heart rate 68 /min No Primary Care Physician [facility] 05-20-2022 21:43-0500 Respiratory rate 16 /min No Primary Care Physician [facility] 05-20-2022 21:43-0500 SaO2% (BldA) [Mass fraction] 99 % No Primary Care Physician [facility] 05-20-2022 20:05-0500 Body height 172.72 cm No Primary Care Physician [facility] 05-20-2022 20:05-0500 Body mass index (BMI) [Ratio] 34.2 kg/m2 No Primary Care Physician [facility] 05-20-2022 20:05-0500 Body temperature 97 [degF] No Primary Care Physician [facility] 05-20-2022 20:05-0500 Body weight 102.05 kg No Primary Care Physician [facility] 05-20-2022 20:05-0500 Diastolic blood pressure 100 mm[Hg] No Primary Care Physician [facility] 05-20-2022 20:05-0500 Systolic blood pressure 154 mm[Hg] No Primary Care Physician [facility] 05-19-2022 11:30-0500 Body temperature 99.2 [degF] No Primary Care Physician [facility] 05-19-2022 11:30-0500 Diastolic blood pressure 80 mm[Hg] No Primary Care Physician [facility] 05-19-2022 11:30-0500 Heart rate 89 /min No Primary Care Physician [facility] 05-19-2022 11:30-0500 Respiratory rate 15 /min No Primary Care Physician [facility] 05-19-2022 11:30-0500 SaO2% (BldA) [Mass fraction] 99 % No Primary Care Physician [facility] 05-19-2022 11:30-0500 Systolic blood pressure 114 mm[Hg] No Primary Care Physician [facility] 05-12-2022 11:40-0500 Body temperature 99.4 [degF] No Primary Care Physician [facility] 05-12-2022 11:40-0500 Diastolic blood pressure 72 mm[Hg] No Primary Care Physician [facility] 05-12-2022 11:40-0500 Heart rate 91 /min No Primary Care Physician [facility] 05-12-2022 11:40-0500 Respiratory rate 14 /min No Primary Care Physician [facility] 05-12-2022 11:40-0500 SaO2% (BldA) [Mass fraction] 98 % No Primary Care Physician [facility] 05-12-2022 11:40-0500 Systolic blood pressure 124 mm[Hg] No Primary Care Physician [facility] 04-02-2022 10:54-0500 Body temperature 98.7 [degF] No Primary Care Physician [facility] 04-02-2022 10:54-0500 Diastolic blood pressure 70 mm[Hg] No Primary Care Physician [facility] 04-02-2022 10:54-0500 Heart rate 82 /min No Primary Care Physician [facility] 04-02-2022 10:54-0500 Respiratory rate 20 /min No Primary Care Physician [facility] 04-02-2022 10:54-0500 SaO2% (BldA) [Mass fraction] 99 % No Primary Care Physician [facility] 04-02-2022 10:54-0500 Systolic blood pressure 100 mm[Hg] No Primary Care Physician [facility] 03-21-2022 09:26-0500 Body temperature 98.4 [degF] No Primary Care Physician [facility] 03-21-2022 09:26-0500 Diastolic blood pressure 84 mm[Hg] No Primary Care Physician [facility] 03-21-2022 09:26-0500 Heart rate 75 /min No Primary Care Physician [facility] 03-21-2022 09:26-0500 Respiratory rate 14 /min No Primary Care Physician [facility] 03-21-2022 09:26-0500 SaO2% (BldA) [Mass fraction] 99 % No Primary Care Physician [facility] 03-21-2022 09:26-0500 Systolic blood pressure 122 mm[Hg] No Primary Care Physician [facility] Encounters Encounter Date Encounter Type Care Provider Facility Start: 02-26-2025 End: 02-26-2025 ambulatory Salome Kenrick [place] [place] Start: 02-26-2025 End: 02-26-2025 [facility] Salome Kenrick Facility:[facility] Start: 01-25-2025 End: 01-25-[address] Grupo Zavala MD -[facility] Work Phone: Start: 01-25-2025 End: 01-25-2025 ambulatory No Primary Care Physician -[facility] Start: 10-23-2024 End: 10-23-2024 ambulatory No Primary Care Physician -Laboratory Specimen Start: 10-23-2024 End: 10-23-2024 Patient encounter procedure Nathan JACKSON -[facility] Specimen Work Phone: Start: 10-22-2024 End: 10-22-2024 Patient encounter procedure Nathan JACKSON [facility] Work Phone: Start: 10-22-2024 End: 10-23-2024 ambulatory No Primary Care Physician [facility] Work Phone: Start: 10-22-2024 Encounter for genera l adult medical examination without abnormal findings [facility] Start: 10-19-2024 End: 10-19-[address] Grupo Zavala MD -[facility] Work Phone: Start: 10-19-2024 End: 10-19-[address] Grupo Zavala MD [facility] Start: 10-19-2024 End: 10-19-2024 ambulatory No Primary Care Physician [facility] Work Phone: Start: 10-19-2024 End: 10-19-2024 ambulatory [facility] Facility:[facility] Start: 08-14-2024 End: 08-14-2024 Patient encounter procedure Nathan JACKSON -[facility] Work Phone: Start: 08-14-2024 End: 08-14-2024 ambulatory No Primary Care Physician Facility:[facility] Start: 05-18-2024 End: 05-18-2024 ambulatory No Primary Care Physician Facility:[facility] Start: 04-28-2024 End: 04-28-2024 ambulatory No Primary Care Physician Facility:[facility] Start: 05-20-2022 End: 05-20-2022 Emergency department patient visit No Primary Care Physician [facility]Emer[facility] Start: 05-19-2022 End: 05-19-2022 ambulatory No Primary Care Physician [facility] Work Phone: Start: 05-19-2022 End: 05-19-2022 Patient encounter procedure No Primary Care Physician [facility]-Laboratory, Specimen Start: 05-19-2022 End: 05-19-2022 Patient encounter procedure No Primary Care Physician [facility] Start: 05-12-2022 End: 05-12-2022 Patient encounter procedure No Primary Care Physician [facility] Start: 04-02-2022 End: 04-02-2022 Patient encounter procedure No Primary Care Physician [facility] Start: 03-21-2022 End: 03-21-2022 Patient encounter procedure No Primary Care Physician [facility] Start: 09-22-2012 End: 09-23-2012 ambulatory SELF REFERRED [facility] Procedures Date Procedure Procedure Detail Performing Clinician [...] Activity Detail Author Start: 10-19-2024 Patient referral [facility] Work Phone: Start: 10-19-2024 CBC W Auto Differential panel - Blood [facility] Start: 10-19-2024 Cobalamin (Vitamin B12) [Mass/volume] in Serum or Plasma [facility] Start: 10-19-2024 Comprehensive metabolic 2000 panel - Serum or Plasma [facility] Start: 10-19-2024 Hemoglobin A1c/Hemoglobin.total in Blood [facility] Start: 10-19-2024 Lipid 1996 panel - Serum or Plasma [facility] Start: 10-19-2024 T4 free measurement [facility] Start: 10-19-2024 Thyroid stimulating hormone measurement [facility] Start: 05-20-2022 [facility] Work Phone: Start: 05-19-2022 [facility] Work Phone: Alanine aminotransfe rase [Enzymatic activity/volume] in Serum or Plasma [facility] Albumin [Mass/volume ] in Serum or Plasma [facility] Alkaline phosphatase [Enzymatic activity/volume] in Serum or Plasma [facility] Anion gap in Serum o r Plasma [facility] Bacteria identified in Urine by Culture [facility] Work Phone: Bilirubin, total measurement [facility] BUN/Creatinine ratio [facility] Calcium [Mass/volume ] in Serum or Plasma [facility] Carbon dioxide, tota l [Moles/volume] in Central venous blood [facility] Cholesterol [Mass/vo lume] in Serum or Plasma [facility] Cholesterol in HDL [Mass/volume] in Serum or Plasma [facility] Creatinine [Mass/vol ume] in Serum or Plasma [facility] Erythrocyte mean corpuscular volume determination [facility] Glucose [Mass/volume ] in Serum or Plasma [facility] Hematocrit [Volume Fraction] of Blood [facility] Hemoglobin [Mass/vol ume] in Blood [facility] Leukocytes [#/volume ] in Blood [facility] Low density lipoprot ein cholesterol measurement [facility] Mean corpuscular hem oglobin concentration determination [facility] Mean corpuscular hem oglobin determination [facility] Measurement of renal function [facility] Neutrophil count [facility] Neutrophil percent differential count [facility] Patient Education Abdominal Pain ED Cystitis Female Adult [facility] Work Phone: Patient referral [facility] Work Phone: Platelets [#/volume] in Blood [facility] Potassium measurement [facility] Red blood cell count [facility] Red cell distributio n width determination [facility] Serum chloride measurement [facility] Sodium measurement [facility] Total cholesterol:HD L ratio measurement [facility] Total protein measurement [facility] Triglycerides measurement [facility] Urea nitrogen [Mass/ volume] in Serum or Plasma [facility] VLDL cholesterol measurement [facility] Immunizations Immunization Date Immunization Notes Care Provider Fa [facility] 10-14-2016 measles, mumps and rubella virus vaccine No Primary Care Physician [facility] 12-01-2014 measles, mumps and rubella virus vaccine No Primary Care Physician [facility] Payers Date Payer Category Payer Self-pay [id number] 2016 Unknown [id number] 2016 Unknown [id number] 1995 Unknown [id number] [id number]. [id number] Unknown [id number] 2.16.8 [id number] Unknown [id number] 2.16.8 [id number] Unknown [id number] 2.16.8 [id number] Unknown [id number] 2.16.8 [id number] Unknown [id number] 2.16.8 [id number] Unknown [id number] 2.16.8 [id number] Unknown [id number] 2.16.8 [id number] Unknown [id number] 2.16.8 [id number] Unknown [id number] 2.16.8 [id number] Unknown [id number] 2.16.8 [id number] Social History Date Type Detail Facility Start: 05-20-2022 Tobacco smoking status NHIS Unknown if ever smoked [facility] Start: 12-17-2018 None [facility] Start: 12-17-2018 With Family [facility] Start: 1995 Sex Assigned At Female [facility] Start: 10-19-2024 Tobacco smoking status NHIS Never smoked tobacco (finding) [facility] Sex Female [facility] NEGATED: Highlighted row [facility] Work Phone: NEGATED: Highlighted row [facility] Progress note 01-25-2025 Note Date & Type Note Facility 01-25-2025 Progress note [facility] Evaluation note 10-19-2024 Note Date & Type Note Facility 10-19-2024 Evaluation note Diagnosis Onset Date Resolution Anxiety and depression acute Ju ne 2024 8:28am Obesity acute October 19 8:28am [facility] acute October 19, 2024 8:28am Cystitis acute October 22 4:42pm Anxiety and depression acute Se ptember 2024 8:50am Insomnia acute January 8:50am [facility] Work Phone: Evaluation note 08-14-2024 Note [...] 8:28am Strain of wrist, right acute Ju 2024 8:28am URI (upper respiratory infection) acute October 19, 2024 8:28am UTI (urinary tract infection) acute October 19, 2024 8:28am [facility] Work Phone: Evaluation note 08-14-2024 Note Date & Type Note Facility 08-14-2024 Evaluation note Diagnosis Onset Date Resolution Acute sinusitis acute August 11:00am Anxiety and depression acute Ju 2024 8:28am Obesity acute October 19 8:28am [facility] acute October 19, 2024 8:28am [facility] Work Phone: Evaluation note 08-14-2024 Note Date & Type Note Facility 08-14-2024 Evaluation note Diagnosis Onset Date Resolution Acute sinusitis acute August 11:00am Anxiety and depression acute Ju 2024 8:28am Obesity acute October 19 8:28am [facility] acute October 19, 2024 8:28am Cystitis acute October 22 4:42pm [facility] Work Phone: Evaluation note Note Date & Type Note Facility Evaluation note Diagnosis Onset Date Acute pharyngitis, unspecified acute URI (upper respiratory infection) acute Right ankle sprain acute UTI (urinary tract infection) acute UTI (urinary tract infection) acute [facility] Work Phone: Hospital Discharge instructions Note Date & Type Note Facility Hospital Discharge instructions Ambulatory OrdersOB/NICU RN Location: None Selected [facility] Work Phone: Progress note Note Date & Type Note Facility Progress note Note Date/Time January 25, 2025 9:19am [facility] [address] [place] [address] [place] [address] OFFICE VISIT Date of Service: 01/25/25 MR#: [id number] Acct: [id number] Name: KRISTEN CHRISTY Rep #: [id number] : 1995 Provider: Dr. Magdalena Zavala MD Age/Sex: 29/F Location: [facility] Status: Signed Intake Vital Signs 10/19/24 [...] caps 01/25/25 01/25/25 Rx release 24 hr [facility] Medical History (Updated 01/25/25 @ 09:23 by [...] safe at home: Yes additional social history: [id number] Patient is stay at home mom HPI [...] sleep aid in the form of an [id number] drinkhelps her fall asleep. She sleeps at [...] if needed. This note was generated with [employer] dictation software. It may contain incorrectwords, spelling, and punctuation that were not noted in checking the note beforesigning. 01/25/25 0963 <Electronically signed by Grupo alston MD> Date _ Grupo Zavala MD Cosigner Signature: Date (if applicable) CC: ~ [facility] Work Phone: Summary Purpose Family History No [...] Will No May 20 8:19pm Power of Duster Tender No May 20, 2022 8:19pm Advance Directive [...] 2024 4:42 pm Anxiety and depression January 25 8:50am Insomnia January 25, 2025 8:50am Additional Source Comments INFORMATION SOURCE (unrecogn ized section and content) DATE CREATED AUTHOR 03/28/2019 [facility] DATE CREATED AUTHOR AUTHOR'S ORGANIZ ATION 04/02/2023 [facility] DATE CREATED AUTHOR AUTHOR'S ORGANIZ ATION 03/11/2025 [facility] Goals (unrecognized section and content) Goals may [...] Care Provider, Refer ring Provider Active Jorge JACKSON, PA Attending Provider Active Team Status: Inactive Member Role Status Dates No Primary Care Physician Primary Care Provider Active Jorge JACKSON PA Active Dr. Oziel Whittington MD Attending Provider Active Team Status: Inactive Member Role Status Dates No Primary Care Physician Primary Care Provider, Refer ring Provider Active Dez Nolen CHECKING DEPARTMENT SUPERVISOR, CHECKING DEPARTMENT SUPERVISOR-C Attending Provider Active Team Status: Inactive Member [...] October 23, 2024 End: October 23, 2024 Nathan Nabil PA, PA Attending Provider Active Sta rt: October 23, 2024 End: October 23, 2024 Nathan JACKSON PA Referring Provider Active Sta rt: October 23, [...] October 23, 2024 End: October 23, 2024 Nathan JACKSON PA Referring Provider Active Sta rt: October 23, [...] BE BASED ON THE PRIMARY CLINICAL RECORDS. [employer] provides no warranty or guarantee of the accuracy or completeness of information in this document.
[2025-04-05 21:13] VITALS: BP 125/78; PULSE 69; RESP 14; O2SAT 100
[2025-04-05 21:35] LABS: Mucous, Urine 0 SEEN /hpf (<or=2+); Red Blood Cells-Urine 0 SEEN /hpf (0-5)
[2025-04-05 21:37] LABS: Color, Urine Yellow (Yellow); Glucose, Dipstick Normal (Normal); Ketone-Dipstick Negative (Negative); Leukocyte Esterase-Dipstick Negative /ul (Negative); Nitrite-Dipstick Negative (Negative); Occult Blood-Urine Negative /ul (Negative); Protein-Dipstick 15 mg/dl (Negative); Specific Gravity, Urine 1.005 (1.002-1.030); Urine Bilirubin Dipstick Negative (Negative)
[2025-04-05 21:48] LABS: Squamous Epithelial Cells - UA 0-5 SEEN /hpf (5-10)
[2025-04-05 22:51] VITALS: BP 125/78; PULSE 69; RESP 14; TEMP 36.6; O2SAT 100
== END 2025-04-05 22:52 | disposition home or self-care (01) ==
PROVIDERS: Emergency Provider Student in an Organized Health Care Education/Training Program; PCP Internal Medicine; Visit Provider Student in an Organized Health Care Education/Training Program
DX: K52.9 Noninfective gastroenteritis and colitis, unspecified (principal); R06.02 Shortness of breath; K29.20 Alcoholic gastritis without bleeding; R42 Dizziness and giddiness; E66.9 Obesity, unspecified; Z86.711 Personal history of pulmonary embolism
CPT/HCPCS: 71046; 71275; 80053; 81001; 83690; 84484; 84703; 85025; 85379; 87631; 93005; 96361; 96374; 99284; Q9967; A4216; J2405